=== PATIENT | male | born 1965 | race Caucasian/White ===

== ENCOUNTER 2018-01-12 19:17 | Emergency (ER) | payer MEDICARE ==
--- NOTE | 2018-01-12 19:40 | EDM.PDOC ---
ED HPI GENERAL MEDICAL PROBLEM - General Chief Complaint: Skin Complaint Stated Complaint: dog bite to abdomen Time Seen by Provider: 01/12/18 19:33 Source of Information: Reports: Patient, RN, RN Notes Reviewed History Limitations: Reports: No Limitations - History of Present Illness INITIAL COMMENTS - FREE TEXT/NARRATIVE: Patient presents to the ED at [facility] after he was biten by a small dog that is known to him. Patient states the dog bite was not provoked. Patient thinks the dog is up to date with immunizations. Patient states his tetanus immunization is up to date. Patient smells of ETOH. Onset: Today, Sudden Onset Date: 01/12/18 Abdomen Pain Score (Numeric/FACES): 5 - Related Data Allergies Allergy/AdvReac Type Severity Reaction Status Date / Time Penicillins Allergy Diarrhea Verified 01/12/18 19:25 Home Meds: Home Meds LORazepam [Ativan] 0.5 mg PO ASDIRECTED PRN 03/30/13 [History] Sulfamethoxazole/Trimethoprim [Bactrim Ds Tablet] 1 each PO BID 10 Days #20 tablet 01/12/18 [Rx] Zolpidem Tartrate 1 tab PO DAILY 01/12/18 [History] Past Medical History Psychiatric History: Reports: Addiction Social & Family History - Tobacco Use Smoking Status *Q: Unknown Ever Smoked ED ROS GENERAL - Review of Systems Review Of Systems: See Below Constitutional: Denies: Fever, Chills Respiratory: Denies: Shortness of Breath, Cough Cardiovascular: Denies: Chest Pain, Palpitations GI/Abdominal: Denies: Abdominal Pain, Nausea, Vomiting Skin: Reports: Wound (central abdomen) Neurological: Reports: No Symptoms ED EXAM, SKIN/RASH Exam: See Below Exam Limited By: Intoxication General Appearance: Alert, No Apparent Distress Respiratory/Chest: No Respiratory Distress, Lungs Clear, Normal Breath Sounds Cardiovascular: Normal Peripheral Pulses, Regular Rate, Rhythm GI/Abdominal: Normal Bowel Sounds, Soft, Non-Tender Neurological: Alert, Oriented Skin: Warm, Dry, Normal Color, Wound/Incision (2cm vertical laceration to the central abdomen; low grade venous ooze; no FB; would appears clean) Location, Skin: Abdomen ED SKIN PROCEDURES - Laceration/Wound Repair Middle Midline Abdomen Lac/Wound length In cm: 2 Appearance: Subcutaneous, Linear Distal NVT: Neuro & Vascular Intact Anesthetic Type: Other (None) Skin Prep: Chlorhexidine (Hibiciens), Isopropyl Alcohol (Alcohol) Exploration/Debridement/Repair: Wound Explored, In a Bloodless Field, Explored to Base, No Foreign Material Found Closed with: Dermabond Sterile Dressing Applied: Provider Tetanus Status Addressed: Yes Complications: No Course - Vital Signs Last Recorded V/S: Last Vital Signs Temp 36.3 C 01/12/18 19:34 Pulse 85 01/12/18 19:34 Resp 18 01/12/18 19:34 BP 120/86 01/12/18 19:34 Pulse Ox 95 01/12/18 19:34 - Orders/Labs/Meds Orders: Active Orders 24 hr Category Date Time Status BASIC METABOLIC PANEL,BMP [CHEM] Stat Lab 01/12/18 19:55 Received Blood Alcohol [ETHANOL BLOOD MEDICAL] [CHEM] Stat Lab 01/12/18 19:55 Received CBC WITH AUTO DIFF [HEME] Stat Lab 01/12/18 19:55 Received Departure - Departure Time of Disposition: 20:10 Disposition: Home, Self-Care 01 Condition: Good Clinical Impression: Dog bite Qualifiers: Encounter type: initial encounter Qualified Code(s): W54.0XXA - Bitten by dog, initial encounter - Discharge Information *PRESCRIPTION DRUG MONITORING PROGRAM REVIEWED*: Not Applicable *COPY OF PRESCRIPTION DRUG MONITORING REPORT IN PATIENT SADIE: Not Applicable Prescriptions: Sulfamethoxazole/Trimethoprim [Bactrim Ds Tablet] 1 each PO BID 10 Days #20 tablet Instructions: Animal Bite Referrals: PCP,None [Primary Care Provider] - Forms: ED Department Discharge Additional Instructions: 1. Stay well hydrated and rest 2. Do not pick at the glue, it needs to stay in place to help heal wound 3. Take antibiotics for the full coarse, even if you are feeling better 4. See your Primary as symptoms warrant - Problem List Review Problem List Initiated/Reviewed/Updated: Yes - My Orders Last 24 Hours: My Active Orders 01/12/18 19:55 BASIC METABOLIC PANEL,BMP [CHEM] Stat Blood Alcohol [ETHANOL BLOOD MEDICAL] [CHEM] Stat CBC WITH AUTO DIFF [HEME] Stat - Assessment/Plan Last 24 Hours: My Active Orders 01/12/18 19:55 BASIC METABOLIC PANEL,BMP [CHEM] Stat Blood Alcohol [ETHANOL BLOOD MEDICAL] [CHEM] Stat CBC WITH AUTO DIFF [HEME] Stat Assessment:: Dog bite to abdomen Plan: Wound closed with Dermabond; wound edges approximated nicely. Patient will need to start on abx therapy per CDC guidelines. No follow up necessary until wound becomes infected.
[2018-01-12] MEDS ORDERED: Diphtheria,Pertussis(Acell),Tetanus Vaccine 0.5 ML Syringe IM ONE (20:16)
[2018-01-12 20:26] LABS: CHLORIDE,CL 107 mmol/L (98-107); SODIUM,NA 143 mmol/L (136-145)
[2018-01-12 20:27] LABS: ANION GAP 14.8 mmol/L (10-20)
== END 2018-01-12 20:26 | disposition home or self-care (01) ==
LOC: VM.ED 19:17
DX: S31.159A Open bite of abdominal wall, unspecified quadrant without penetration into peritoneal cavity, initial encounter (principal); W54.0XXA Bitten by dog, initial encounter; Z88.0 Allergy status to penicillin; Z79.899 Other long term (current) drug therapy; Z23 Encounter for immunization
CPT/HCPCS: 12001; 36415; 80048; 85025; 90471; 90715; 99283; 99283-GF-25; G0480

== ENCOUNTER 2018-10-03 00:10 | Emergency (ER) | payer MEDICARE ==
[2018-10-03 00:13] VITALS: BP 124/87
[2018-10-03] MEDS: Take Home: Naproxen 500 MG Tab, 4 Tab Pack PO ONE (00:25)
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
== END 2018-10-03 00:26 | disposition home or self-care (01) ==
LOC: VM.ED 00:10
DX: S29.011A Strain of muscle and tendon of front wall of thorax, initial encounter (principal); Z79.899 Other long term (current) drug therapy; Z88.0 Allergy status to penicillin; Y93.12 Activity, springboard and platform diving
CPT/HCPCS: 99283; 99283-GF; A9270-GY

== ENCOUNTER 2018-10-18 11:42 | Observation (INO) | payer MEDICARE ==
[2018-10-18 12:44] LABS: BARBITURATE SCREEN,URINE NEGATIVE (NEGATIVE); BENZODIAZEPINES SCREEN,URINE POSITIVE (NEGATIVE); EDDP,URINE SCREEN NEGATIVE (NEGATIVE); METHAMPHETAMINE SCREEN, URINE NEGATIVE (NEGATIVE); TCA SCREEN,URINE NEGATIVE (NEGATIVE); THC SCREEN,URINE 50 NG/ML POSITIVE (NEGATIVE)
[2018-10-18] MEDS ORDERED: LORazepam 2 MG/ML SDV IVPUSH ONE (13:07)
--- NOTE | 2018-10-18 13:07 | EDM.PDOC ---
ED HPI GENERAL MEDICAL PROBLEM - General Chief Complaint: Drug or Alcohol Abuse Stated Complaint: DETOX Time Seen by Provider: 10/18/18 12:00 Source of Information: Reports: Patient History Limitations: Reports: No Limitations - History of Present Illness INITIAL COMMENTS - FREE TEXT/NARRATIVE: Pt. presents to ER requesting detox. Pt. states that he drinks approx. 25 drinks per day, between beer and hard alcohol. Pt. has been drinking today. He states that he was sober for several months but has drinking heavily daily since February. In addition to alcohol, he smokes marijuana heavily as well. He initially stated that he "didn't use the hard stuff" but later admitted that he may have used meth this past weekend. Pt. denies any other complaints. No chest pain or shortness of breath. No blood in his vomit or stool. He states that he attempted to stop drinking cold turkey twice recently but he was unable to maintain sobriety due to vomiting and DTs. Onset: Today Onset Date: 10/18/18 Onset Time: 13:14 Severity: Moderate - Related Data Allergies Allergy/AdvReac Type Severity Reaction Status Date / Time Penicillins Allergy Diarrhea Verified 10/18/18 12:09 Home Meds: Home Meds LORazepam [Ativan] 1 mg PO BID 03/30/13 [History] Zolpidem Tartrate 1 tab PO DAILY 01/12/18 [History] Gabapentin [Neurontin] 100 mg PO BID 10/03/18 [History] Past Medical History Psychiatric History: Reports: Addiction, Schizophrenia Social & Family History - Tobacco Use Smoking Status *Q: Current Every Day Smoker Years of Tobacco use: 1 Packs/Tins Daily: 30 - Alcohol Use Days Per Week of Alcohol Use: 7 Number of Drinks Per Day: 30 Total Drinks Per Week: 210 Date of Last Drink: 10/18/18 - Recreational Drug Use Recreational Drug Use: Yes Drug Use in Last 12 Months: Yes Recreational Drug Type: Reports: Marijuana/Hashish Recreational Drug Use Frequency: Daily ED ROS GENERAL - Review of Systems Review Of Systems: See Below Constitutional: Reports: No Symptoms HEENT: Reports: No Symptoms Respiratory: Reports: No Symptoms Cardiovascular: Reports: No Symptoms Endocrine: Reports: No Symptoms GI/Abdominal: Reports: Nausea, Vomiting. Denies: Hematemesis, Hematochezia, Melena : Reports: No Symptoms Musculoskeletal: Reports: No Symptoms Skin: Reports: No Symptoms Neurological: Reports: Dizziness Psychiatric: Reports: Agitation, Anxiety Hematologic/Lymphatic: Reports: No Symptoms Immunologic: Reports: No Symptoms ED EXAM, GENERAL - Physical Exam Exam: See Below Exam Limited By: No Limitations General Appearance: Alert, WD/WN, Anxious Eye Exam: Bilateral Eye: EOMI Throat/Mouth: Normal Inspection, Normal Lips, Normal Teeth, Normal Gums, Normal Oropharynx, Normal Voice, No Airway Compromise Head: Atraumatic, Normocephalic Neck: Normal Inspection, Supple, Non-Tender, Full Range of Motion Respiratory/Chest: No Respiratory Distress, Lungs Clear, Normal Breath Sounds, No Accessory Muscle Use, Chest Non-Tender Cardiovascular: Normal Peripheral Pulses, Regular Rate, Rhythm, No Edema, No Gallop, No JVD, No Murmur, No Rub Peripheral Pulses: 4+: Radial (L) GI/Abdominal: Normal Bowel Sounds, Soft, Non-Tender, No Organomegaly, No Distention, No Mass (Male) Exam: Deferred Rectal (Males) Exam: Deferred Back Exam: Normal Inspection, Full Range of Motion Extremities: Normal Inspection, Normal Range of Motion, Non-Tender, No Pedal Edema, Normal Capillary Refill Neurological: Alert, Oriented, CN II-XII Intact, Normal Cognition, Normal Gait, Normal Reflexes, No Motor/Sensory Deficits Psychiatric: Anxious Skin Exam: Warm, Dry, Intact, Normal Color, No Rash Course - Vital Signs Last Recorded V/S: Last Vital Signs Temp 36.9 C 10/18/18 11:55 Pulse 120 H 10/18/18 11:55 Resp 18 10/18/18 11:55 BP 124/84 10/18/18 11:55 Pulse Ox 95 10/18/18 11:55 - Orders/Labs/Meds Orders: Active Orders 24 hr Category Date Time Status Patient Status [ADT] Routine ADT 10/18/18 13:01 Ordered Blood Alcohol [ETHANOL BLOOD MEDICAL] [CHEM] Stat Lab 10/18/18 12:30 Received COMPREHENSIVE METABOLIC PN,CMP [CHEM] Stat Lab 10/18/18 12:30 Received LACTIC ACID [CHEM] Stat Lab 10/18/18 12:30 Received MAGNESIUM [CHEM] Stat Lab 10/18/18 12:30 Received PHOSPHORUS [CHEM] Stat Lab 10/18/18 12:30 Received TSH ULTRASENSITIVE [CHEM] Stat Lab 10/18/18 12:30 Received Sodium Chloride 0.9% [Saline Flush] Med 10/18/18 12:17 Active 10 ml FLUSH ASDIRECTED PRN Peripheral IV Insertion Adult [OM.PC] Routine Oth 10/18/18 12:19 Ordered Medication Orders Sodium Chloride (Saline Flush) 10 ml FLUSH ASDIRECTED PRN PRN Reason: Keep Vein Open Labs: Laboratory Tests 10/18/18 10/18/18 10/18/18 Range/Units 12:20 12:20 12:30 WBC 4.5 (4.0-10.0) x10^3/uL RBC 4.38 L (4.5-6.0) x10^6/uL Hgb 14.7 (14.0-18.0) g/dL Hct 41.1 (40.0-52.0) % MCV 93.8 H (78.0-93.0) fL MCH 33.6 H (26.0-32.0) pg MCHC 35.8 (32.0-36.0) g/dL RDW Coeff of Hayde 13.6 (10.0-15.0) % Plt Count 90 L (130-400) x10^3/uL Neut % (Auto) 61.9 (50.0-80.0) % Lymph % (Auto) 24.5 L (25.0-50.0) % Grant % (Auto) 12.8 H (2.0-11.0) % Eos % (Auto) 0.4 (0.0-4.0) % Baso % (Auto) 0.4 (0.2-1.2) % PT (10.0-12.8) SEC INR (2.0-3.5) Urine Color Yellow (YELLOW) Urine Appearance Clear (CLEAR) Urine pH 5.5 (5.0-8.0) Ur Specific [place] 1.010 Urine Protein 100 H (NEGATIVE) mg/dL Urine Glucose (UA) Negative (NEGATIVE) mg/dL Urine Ketones Negative (NEGATIVE) mg/dL Urine Occult Blood Small H (NEGATIVE) Urine Nitrite Negative (NEGATIVE) Urine Bilirubin Negative (NEGATIVE) Urine Urobilinogen 0.2 (0.2) EU/dL Ur Leukocyte Esterase Negative (NEGATIVE) Urine RBC 0-5 (NOT SEEN) /HPF Urine WBC 0-5 (NOT SEEN) /HPF Ur Squamous Epith Cells Rare (NEGATIVE) /HPF Urine Bacteria Not seen (NEGATIVE) /HPF Urine Mucus Rare H (NEGATIVE) /LPF Urine Opiates Screen Negative (NEAGTIVE) Ur Buprenorphine Scrn Negative (NEGATIVE) Ur Oxycodone Screen Negative (NEGATIVE) Ur EDDP (Meth Metab) Negative (NEGATIVE) Urine Methadone Screen Negative (NEGATIVE) Ur Barbiturates Screen Negative (NEGATIVE) Ur Tricyclics Screen Negative (NEGATIVE) Ur Phencyclidine Scrn Negative (NEGATIVE) Ur Amphetamine Screen Negative (NEGATIVE) U Methamphetamines Scrn Negative (NEGATIVE) Urine MDMA Screen Negative (NEGATIVE) U Benzodiazepines Scrn Positive H (NEGATIVE) U Cocaine Metab Screen Negative (NEGATIVE) U Marijuana (THC) Screen Positive H (NEGATIVE) 10/18/18 Range/Units 12:30 WBC (4.0-10.0) x10^3/uL RBC (4.5-6.0) x10^6/uL Hgb (14.0-18.0) g/dL Hct (40.0-52.0) % MCV (78.0-93.0) fL MCH (26.0-32.0) pg MCHC (32.0-36.0) g/dL RDW Coeff of Hayde (10.0-15.0) % Plt Count (130-400) x10^3/uL Neut % (Auto) (50.0-80.0) % Lymph % (Auto) (25.0-50.0) % Grant % (Auto) (2.0-11.0) % Eos % (Auto) (0.0-4.0) % Baso % (Auto) (0.2-1.2) % PT 9.1 L (10.0-12.8) SEC INR 0.8 L (2.0-3.5) Urine Color (YELLOW) Urine Appearance (CLEAR) Urine pH (5.0-8.0) Ur Specific [place] Urine Protein (NEGATIVE) mg/dL Urine Glucose (UA) (NEGATIVE) mg/dL Urine Ketones (NEGATIVE) mg/dL Urine Occult Blood (NEGATIVE) Urine Nitrite (NEGATIVE) Urine Bilirubin (NEGATIVE) Urine Urobilinogen (0.2) EU/dL Ur Leukocyte Esterase (NEGATIVE) Urine RBC (NOT SEEN) /HPF Urine WBC (NOT SEEN) /HPF Ur Squamous Epith Cells (NEGATIVE) /HPF Urine Bacteria (NEGATIVE) /HPF Urine Mucus (NEGATIVE) /LPF Urine Opiates Screen (NEAGTIVE) Ur Buprenorphine Scrn (NEGATIVE) Ur Oxycodone Screen (NEGATIVE) Ur EDDP (Meth Metab) (NEGATIVE) Urine Methadone Screen (NEGATIVE) Ur Barbiturates Screen (NEGATIVE) Ur Tricyclics Screen (NEGATIVE) Ur Phencyclidine Scrn (NEGATIVE) Ur Amphetamine Screen (NEGATIVE) U Methamphetamines Scrn (NEGATIVE) Urine MDMA Screen (NEGATIVE) U Benzodiazepines Scrn (NEGATIVE) U Cocaine Metab Screen (NEGATIVE) U Marijuana (THC) Screen (NEGATIVE) Meds: Medications Generic Name Dose Route Start Last Admin Trade Name Freq PRN Reason Stop Dose Admin Sodium Chloride 10 ml 10/18/18 12:17 Saline Flush FLUSH ASDIRECTED PRN Keep Vein Open Discontinued Medications Generic Name Dose Route Start Last Admin Trade Name Freq PRN Reason Stop Dose Admin Lorazepam 1 mg 10/18/18 13:07 Ativan IVPUSH 10/18/18 13:08 STAT ONE Departure - Departure Time of Disposition: 13:19 Disposition: Refer to Observation Condition: Good Clinical Impression: Alcohol abuse, Alcohol withdrawal syndrome, Drug abuse, Drug dependence - Discharge Information Referrals: PCP,Not In Area [Primary Care Provider] - Forms: ED Department Discharge - My Orders Last 24 Hours: My Active Orders 10/18/18 12:17 Sodium Chloride 0.9% [Saline Flush] 10 ml FLUSH ASDIRECTED PRN 10/18/18 12:19 Peripheral IV Insertion Adult [OM.PC] Routine 10/18/18 12:30 Blood Alcohol [ETHANOL BLOOD MEDICAL] [CHEM] Stat COMPREHENSIVE METABOLIC PN,CMP [CHEM] Stat LACTIC ACID [CHEM] Stat MAGNESIUM [CHEM] Stat PHOSPHORUS [CHEM] Stat TSH ULTRASENSITIVE [CHEM] Stat 10/18/18 13:01 Patient Status [ADT] Routine - Assessment/Plan Admission H&P: Please use this note as an admission H&P Last 24 Hours: My Active Orders 10/18/18 12:17 Sodium Chloride 0.9% [Saline Flush] 10 ml FLUSH ASDIRECTED PRN 10/18/18 12:19 Peripheral IV Insertion Adult [OM.PC] Routine 10/18/18 12:30 Blood Alcohol [ETHANOL BLOOD MEDICAL] [CHEM] Stat COMPREHENSIVE METABOLIC PN,CMP [CHEM] Stat LACTIC ACID [CHEM] Stat MAGNESIUM [CHEM] Stat PHOSPHORUS [CHEM] Stat TSH ULTRASENSITIVE [CHEM] Stat 10/18/18 13:01 Patient Status [ADT] Routine Plan: Pt. will be admitted observation at this point. He states that he does not want to arrange any inpatient or outpatient treatment program and states that he will likely leave tomorrow. Will institute the alcohol detox protocol. Will treat DTs and agitation with ativan. Protonix IV for stress ulcer prophylaxis. He will need a nicotine patch. Nausea and vomiting will be treated with zofran and compazine. Pt. is a code 1.
[2018-10-18 13:08] LABS: CHLORIDE,CL 101 mmol/L (98-107); SODIUM,NA 140 mmol/L (136-145)
[2018-10-18 13:09] LABS: ANION GAP 18.6 mmol/L (10-20)
[2018-10-18] MEDS ORDERED: cloNIDine 0.1 MG Tab PO PRN (13:24)
[2018-10-18] MEDS ORDERED: Magnesium Oxide 400 MG Tab PO ONE (13:24)
[2018-10-18] MEDS ORDERED: Metoprolol Tartrate 25 MG Tab PO PRN (13:24)
[2018-10-18] MEDS: Nicotine 21 MG/24 Hr Patch TRDERM SCH (14:28)
[2018-10-18] MEDS: LORazepam 1 MG Tab PO PRN ×3 (15:43→19:31)
[2018-10-18] MEDS: Pantoprazole 40 MG Vial IV SCH (15:47)
[2018-10-18] MEDS: Lactated Ringers 1,000 ML IV SCH ×2 (17:52→21:37)
[2018-10-18] MEDS: Haloperidol Lactate 5 MG/ML SDV IM PRN ×2 (17:52→21:34)
[2018-10-18] MEDS: Folic Acid 1 MG Tab PO SCH (17:53)
[2018-10-18] MEDS: Multivitamins with Iron/Calcium/Folic Acid/Minerals Tab PO SCH (17:54)
[2018-10-18] MEDS: Thiamine 100 MG Tab PO SCH (17:54)
[2018-10-18] MEDS: Gabapentin 100 MG Cap PO SCH (19:20)
[2018-10-18] MEDS: Ondansetron 4 MG/2 ML SDV IVPUSH PRN (19:26)
[2018-10-19] MEDS: LORazepam 1 MG Tab PO PRN ×5 (01:40→22:12)
[2018-10-19] MEDS: Lactated Ringers 1,000 ML IV SCH (05:12)
[2018-10-19] MEDS: Thiamine 100 MG Tab PO SCH (08:42)
[2018-10-19] MEDS: Gabapentin 100 MG Cap PO SCH ×2 (08:42→20:02)
[2018-10-19] MEDS: Folic Acid 1 MG Tab PO SCH (08:42)
[2018-10-19] MEDS: Multivitamins with Iron/Calcium/Folic Acid/Minerals Tab PO SCH (08:42)
[2018-10-19] MEDS: chlordiazePOXIDE 25 MG Cap PO PRN ×2 (08:52→16:56)
--- NOTE | 2018-10-19 08:56 | PCM.PN ---
- General Info Date of Service: 10/19/18 Admission Dx/Problem (Free Text): Admitted for alcohol withdrawal and symptoms Functional Status: Reports: Tolerating Diet, Ambulating, Urinating. Denies: New Symptoms - Review of Systems General: Reports: No Symptoms HEENT: Reports: No Symptoms Pulmonary: Reports: No Symptoms Cardiovascular: Reports: No Symptoms Gastrointestinal: Reports: Nausea Genitourinary: Reports: No Symptoms Musculoskeletal: Reports: No Symptoms Skin: Reports: No Symptoms Neurological: Reports: No Symptoms Psychiatric: Reports: Hallucinations (reports visual and auditory; also states this is normal even when not detoxing) - Patient Data Vitals - Most Recent: Last Vital Signs Temp 37.2 C 10/19/18 05:38 Pulse 79 10/19/18 05:38 Resp 16 10/19/18 05:38 BP 133/85 10/19/18 05:38 Pulse Ox 95 10/19/18 05:38 Weight - Most Recent: 63.503 kg I&O - Last 24 Hours: Intake & Output 10/18/18 10/19/18 10/19/18 22:59 06:59 14:59 Intake Total 852 2500 120 Balance 852 2500 120 Lab Results Last 24 Hours: Laboratory Results - last 24 hr 10/18/18 10/18/18 10/18/18 Range/Units 12:20 12:20 12:30 WBC 4.5 (4.0-10.0) x10^3/uL RBC 4.38 L (4.5-6.0) x10^6/uL Hgb 14.7 (14.0-18.0) g/dL Hct 41.1 (40.0-52.0) % MCV 93.8 H (78.0-93.0) fL MCH 33.6 H (26.0-32.0) pg MCHC 35.8 (32.0-36.0) g/dL RDW Coeff of Hayde 13.6 (10.0-15.0) % Plt Count 90 L (130-400) x10^3/uL Neut % (Auto) 61.9 (50.0-80.0) % Lymph % (Auto) 24.5 L (25.0-50.0) % [place] % (Auto) 12.8 H (2.0-11.0) % Eos % (Auto) 0.4 (0.0-4.0) % Baso % (Auto) 0.4 (0.2-1.2) % PT (10.0-12.8) SEC INR (2.0-3.5) Sodium (136-145) mmol/L Potassium (3.5-5.1) mmol/L Chloride (98-107) mmol/L Carbon Dioxide (21-32) mmol/L Anion Gap (10-20) mmol/L BUN (7-18) mg/dL Creatinine (0.70-1.30) mg/dL Est Cr Clr Drug Dosing mL/min Estimated GFR (MDRD) Glucose (74-106) mg/dL Lactic Acid (0.4-2.0) mmol/L Calcium (8.5-10.1) mg/dL Corrected Calcium (8.5-10.1) mg/dL Phosphorus (2.6-4.7) mg/dL Magnesium (1.8-2.4) mg/dL Total Bilirubin (0.2-1.0) mg/dL AST (15-37) U/L ALT (16-63) U/L Alkaline Phosphatase (46-116) U/L Total Protein (6.4-8.2) g/dL Albumin (3.4-5.0) g/dL Globulin Albumin/Globulin Ratio TSH, Ultra Sensitive (0.358-3.74) uIU/mL Urine Color Yellow (YELLOW) Urine Appearance Clear (CLEAR) Urine pH 5.5 (5.0-8.0) Ur Specific [place] 1.010 Urine Protein 100 H (NEGATIVE) mg/dL Urine Glucose (UA) Negative (NEGATIVE) mg/dL Urine Ketones Negative (NEGATIVE) mg/dL Urine Occult Blood Small H (NEGATIVE) Urine Nitrite Negative (NEGATIVE) Urine Bilirubin Negative (NEGATIVE) Urine Urobilinogen 0.2 (0.2) EU/dL Ur Leukocyte Esterase Negative (NEGATIVE) Urine RBC 0-5 (NOT SEEN) /HPF Urine WBC 0-5 (NOT SEEN) /HPF Ur Squamous Epith Cells Rare (NEGATIVE) /HPF Urine Bacteria Not seen (NEGATIVE) /HPF Urine Mucus Rare H (NEGATIVE) /LPF Urine Opiates Screen Negative (NEAGTIVE) Ur Buprenorphine Scrn Negative (NEGATIVE) Ur Oxycodone Screen Negative (NEGATIVE) Ur EDDP (Meth Metab) Negative (NEGATIVE) Urine Methadone Screen Negative (NEGATIVE) Ur Barbiturates Screen Negative (NEGATIVE) Ur Tricyclics Screen Negative (NEGATIVE) Ur Phencyclidine Scrn Negative (NEGATIVE) Ur Amphetamine Screen Negative (NEGATIVE) U Methamphetamines Scrn Negative (NEGATIVE) Urine MDMA Screen Negative (NEGATIVE) U Benzodiazepines Scrn Positive H (NEGATIVE) U Cocaine Metab Screen Negative (NEGATIVE) U Marijuana (THC) Screen Positive H (NEGATIVE) Ethyl Alcohol (0-3) mg/dL 10/18/18 10/18/18 10/18/18 Range/Units 12:30 12:30 12:30 WBC (4.0-10.0) x10^3/uL RBC (4.5-6.0) x10^6/uL Hgb (14.0-18.0) g/dL Hct (40.0-52.0) % MCV (78.0-93.0) fL MCH (26.0-32.0) pg MCHC (32.0-36.0) g/dL RDW Coeff of Hayde (10.0-15.0) % Plt Count (130-400) x10^3/uL Neut % (Auto) (50.0-80.0) % Lymph % (Auto) (25.0-50.0) % [place] % (Auto) (2.0-11.0) % Eos % (Auto) (0.0-4.0) % Baso % (Auto) (0.2-1.2) % PT 9.1 L (10.0-12.8) SEC INR 0.8 L (2.0-3.5) Sodium 140 (136-145) mmol/L Potassium 3.6 (3.5-5.1) mmol/L Chloride 101 (98-107) mmol/L Carbon Dioxide 24 (21-32) mmol/L Anion Gap 18.6 (10-20) mmol/L BUN 7 (7-18) mg/dL Creatinine 0.6 L (0.70-1.30) mg/dL Est Cr Clr Drug Dosing 121.01 mL/min Estimated GFR (MDRD) > 60 Glucose 148 H (74-106) mg/dL Lactic Acid 2.7 H* (0.4-2.0) mmol/L Calcium 9.2 (8.5-10.1) mg/dL Corrected Calcium 9.52 (8.5-10.1) mg/dL Phosphorus 3.7 (2.6-4.7) mg/dL Magnesium 1.7 L (1.8-2.4) mg/dL Total Bilirubin 0.4 (0.2-1.0) mg/dL AST 278 H (15-37) U/L ALT 199 H (16-63) U/L Alkaline Phosphatase 110 (46-116) U/L Total Protein 7.9 (6.4-8.2) g/dL Albumin 3.6 (3.4-5.0) g/dL Globulin 4.3 Albumin/Globulin Ratio 0.84 TSH, Ultra Sensitive 0.749 (0.358-3.74) uIU/mL Urine Color (YELLOW) Urine Appearance (CLEAR) Urine pH (5.0-8.0) Ur Specific [place] Urine Protein (NEGATIVE) mg/dL Urine Glucose (UA) (NEGATIVE) mg/dL Urine Ketones (NEGATIVE) mg/dL Urine Occult Blood (NEGATIVE) Urine Nitrite (NEGATIVE) Urine Bilirubin (NEGATIVE) Urine Urobilinogen (0.2) EU/dL Ur Leukocyte Esterase (NEGATIVE) Urine RBC (NOT SEEN) /HPF Urine WBC (NOT SEEN) /HPF Ur Squamous Epith Cells (NEGATIVE) /HPF Urine Bacteria (NEGATIVE) /HPF Urine Mucus (NEGATIVE) /LPF Urine Opiates Screen (NEAGTIVE) Ur Buprenorphine Scrn (NEGATIVE) Ur Oxycodone Screen (NEGATIVE) Ur EDDP (Meth Metab) (NEGATIVE) Urine Methadone Screen (NEGATIVE) Ur Barbiturates Screen (NEGATIVE) Ur Tricyclics Screen (NEGATIVE) Ur Phencyclidine Scrn (NEGATIVE) Ur Amphetamine Screen (NEGATIVE) U Methamphetamines Scrn (NEGATIVE) Urine MDMA Screen (NEGATIVE) U Benzodiazepines Scrn (NEGATIVE) U Cocaine Metab Screen (NEGATIVE) U Marijuana (THC) Screen (NEGATIVE) Ethyl Alcohol 291 H (0-3) mg/dL Med Orders - Current: Current Medications Chlordiazepoxide HCl (Librium) 25 mg PO TID PRN PRN Reason: Withdrawal Symptoms Clonidine HCl (Catapres) 0.1 mg PO Q4H PRN PRN Reason: Agitation Folic Acid (Folic Acid) 1 mg PO DAILY JEAN Stop: 10/20/18 08:01 Last Admin: 10/19/18 08:42 Dose: 1 mg Gabapentin (Neurontin) 100 mg PO BID REPLACED BY [facility] Last Admin: 10/19/18 08:42 Dose: 100 mg Haloperidol Lactate (Haldol) 2 mg IM Q4H PRN PRN Reason: Agitation Last Admin: 10/18/18 21:34 Dose: 2 mg Lactated Ringer's (Ringers, Lactated) 1,000 mls @ 125 mls/hr IV ASDIRECTED JEAN Last Admin: 10/19/18 05:12 Dose: 125 mls/hr Lorazepam (Ativan) 0 mg PO ASDIRECTED PRN; Protocol PRN Reason: Withdrawal Symptoms Last Admin: 10/19/18 08:41 Dose: 1 mg Metoprolol Tartrate (Lopressor) 25 mg PO Q6H PRN PRN Reason: See Label Comment Multivitamins/Minerals (Thera M Plus) 1 tab PO DAILY REPLACED BY [facility] Last Admin: 10/19/18 08:42 Dose: 1 tab Nicotine (Habitrol) 21 mg TRDERM DAILY@1200 REPLACED BY [facility] Last Admin: 10/18/18 14:28 Dose: Not Given Ondansetron HCl (Zofran) 4 mg IVPUSH Q4H PRN PRN Reason: Nausea Last Admin: 10/18/18 19:26 Dose: 4 mg Pantoprazole Sodium (Protonix Iv) 40 mg IV DAILY@1200 REPLACED BY [facility] Last Admin: 10/18/18 15:47 Dose: 40 mg Sodium Chloride (Saline Flush) 10 ml FLUSH ASDIRECTED PRN PRN Reason: Keep Vein Open Thiamine HCl (Vitamin B-1) 100 mg PO DAILY REPLACED BY [facility] Last Admin: 10/19/18 08:42 Dose: 100 mg Zolpidem Tartrate (Ambien) 10 mg PO BEDTIME REPLACED BY [facility] Discontinued Medications Lorazepam (Ativan) 1 mg IVPUSH STAT ONE Stop: 10/18/18 13:08 Last Admin: 10/18/18 13:13 Dose: 1 mg Magnesium Oxide (Magnesium Oxide) 400 mg PO ONETIME ONE Stop: 10/18/18 13:25 Last Admin: 10/18/18 17:53 Dose: Not Given - Exam General: Alert, Oriented, Cooperative, No Acute Distress HEENT: Pupils Equal, Pupils Reactive, EOMI Neck: Supple Lungs: Clear to Auscultation, Normal Respiratory Effort Cardiovascular: Regular Rate, Regular Rhythm GI/Abdominal Exam: Normal Bowel Sounds, Soft, Non-Tender, No Organomegaly, No Distention, No Abnormal Bruit, No Mass, Pelvis Stable Back Exam: Normal Inspection, Full Range of Motion Extremities: Normal Inspection, Normal Range of Motion, Non-Tender, No Pedal Edema, Normal Capillary Refill Skin: Warm, Dry, Intact Wound/Incisions: Healing Well Neurological: No New Focal Deficit Psy/Mental Status: Alert, Normal Affect, Normal Mood - Problem List & Annotations (1) Alcohol withdrawal syndrome SNOMED Code(s): 311115293 Code(s): F10.239 - ALCOHOL DEPENDENCE WITH WITHDRAWAL, UNSPECIFIED Status: Acute Priority: Medium Current Visit: Yes Qualifiers: Complication of substance-induced condition: uncomplicated Qualified Code(s ): F10.230 - Alcohol dependence with withdrawal, uncomplicated - Problem List Review Problem List Initiated/Reviewed/Updated: Yes - My Orders Last 24 Hours: My Active Orders 10/19/18 08:19 COMPREHENSIVE METABOLIC PN,CMP [CHEM] Routine LACTIC ACID [CHEM] Routine MAGNESIUM [CHEM] Routine 10/19/18 08:20 chlordiazePOXIDE [Librium] 25 mg PO TID PRN - Assessment Assessment:: alcohol withdrawal syndrome - Plan Plan:: Plan Repeat metabolic panel this AM. Add scheduled Librium. Minimal symptoms reported however, last drink was still less than 24 hours ago. Anticipate increased symptomology including hallucinations and confusion, increased nausea , possible incontinence, confusion, aggression, acute psychosis. Will supplement oral vitamins as needed per chemistry report. Keep close to the desk , reevaluate as needed.
[2018-10-19 09:06] LABS: CHLORIDE,CL 100 mmol/L (98-107); SODIUM,NA 137 mmol/L (136-145)
[2018-10-19 09:08] LABS: ANION GAP 13.4 mmol/L (10-20)
[2018-10-19] MEDS ORDERED: Magnesium Sulfate/Water 2 GM in Premix Bag 1 BAG IV ONE (11:30)
[2018-10-19] MEDS: Ondansetron 4 MG/2 ML SDV IVPUSH PRN ×2 (11:37→16:55)
[2018-10-19] MEDS: Pantoprazole 40 MG Vial IV SCH (11:37)
[2018-10-19] MEDS: Nicotine 21 MG/24 Hr Patch TRDERM SCH (11:40)
[2018-10-19] MEDS: D5 1/2 NS w/ 40 mEq/L KCl 1,000 ML IV SCH ×2 (13:20→20:46)
[2018-10-19] MEDS: LORazepam 2 MG/ML SDV IV PRN ×2 (18:06→20:05)
[2018-10-19] MEDS ORDERED: Zolpidem 5 MG Tab PO SCH (20:00)
[2018-10-19] MEDS: Sodium Chloride 0.9% 10 ML Syringe FLUSH PRN (20:08)
[2018-10-19] MEDS: Haloperidol Lactate 5 MG/ML SDV IM PRN (22:11)
[2018-10-20] MEDS: Sodium Chloride 0.9% 10 ML Syringe FLUSH PRN ×2 (00:05→02:16)
[2018-10-20] MEDS: LORazepam 2 MG/ML SDV IV PRN ×2 (00:05→02:16)
[2018-10-20] MEDS: chlordiazePOXIDE 25 MG Cap PO PRN (02:16)
[2018-10-20] MEDS: D5 1/2 NS w/ 40 mEq/L KCl 1,000 ML IV SCH (03:57)
[2018-10-20 07:55] LABS: CHLORIDE,CL 104 mmol/L (98-107); SODIUM,NA 138 mmol/L (136-145)
[2018-10-20 07:59] LABS: ANION GAP 13.2 mmol/L (10-20)
[2018-10-20] MEDS: Multivitamins with Iron/Calcium/Folic Acid/Minerals Tab PO SCH (09:17)
[2018-10-20] MEDS: Gabapentin 100 MG Cap PO SCH (09:17)
[2018-10-20] MEDS: Folic Acid 1 MG Tab PO SCH (09:18)
[2018-10-20] MEDS: Thiamine 100 MG Tab PO SCH (09:18)
--- NOTE | 2018-10-21 00:34 | PCM.DCSUM1 ---
Discharge Summary - Hospital Course Free Text/Narrative:: Pt. states that he is feeling much better. He has not been experiencing any nausea or vomiting. No chest pain or shortness of breath. He has not been agitated. His CIWAA score have been in the 4-5 range. Pt. is interested in intensive inpatient alcohol treatment but refuses inpatient placement at this time. He states that he needs to take care of his home and buildings before he goes into treatment. Pt. has been eating and drinking adequately. He has been up ambulating without difficulty. His ex continues to be in the patient's room. She was causing the patient to be agitated yesterday and was asked to leave. Pt. states that she can be present during rounds and discharge this AM. The pt. ex was asking questions about the patient being placed on a court ordered committal today. I stated that the patient did not meet criteria for this as he is not suicidal or homicidal. Also she was informed that I would not be able to share information with her as she is his ex and the patient does not want her involved. Diagnosis: Stroke: No - Discharge Data Discharge Date: 10/20/18 Discharge Disposition: Home, Self-Care 01 Condition: Good - Discharge Diagnosis/Problem(s) (1) Alcohol abuse SNOMED Code(s): 55739437 ICD Code: F10.10 - ALCOHOL ABUSE, UNCOMPLICATED Status: Acute (2) Alcohol withdrawal syndrome SNOMED Code(s): 967384009 ICD Code: F10.239 - ALCOHOL DEPENDENCE WITH WITHDRAWAL, UNSPECIFIED Status : Acute Priority: Medium Qualifiers: Complication of substance-induced condition: uncomplicated Qualified Code(s ): F10.230 - Alcohol dependence with withdrawal, uncomplicated - Discharge Plan Prescriptions/Med Rec: cloNIDine [Catapres] 0.1 mg PO Q4H PRN #30 tablet PRN Reason: Agitation Home Medications: Home Meds LORazepam [Ativan] 1 mg PO BID 03/30/13 [History] Zolpidem Tartrate 10 mg PO DAILY 01/12/18 [History] Gabapentin [Neurontin] 100 mg PO BID 10/03/18 [History] Thiamine [Vitamin B-1] 100 mg PO DAILY tablet 10/20/18 [Rx] cloNIDine [Catapres] 0.1 mg PO Q4H PRN #30 tablet 10/20/18 [Rx] Forms: ED Department Discharge Referrals: PCP,Not In Area [Primary Care Provider] - - Discharge Summary/Plan Comment DC Time >30 min.: Yes Discharge Summary/Plan Comment: Again patient did not wish to engage in inpatient treatment. He was given information and contact info for the [facility] if he is interested in outpatient treatment. He was started on oral thiamine as well as clonidine. He will continue this Ativan as needed. Return to ER if he has agitation, is unable to hold down fluids, or his having hallucinations or suicidal/homicidal thoughts. All questions were answered. - General Info Date of Service: 10/20/18 Functional Status: Reports: Pain Controlled, Tolerating Diet, Ambulating, Urinating - Review of Systems General: Reports: No Symptoms HEENT: Reports: No Symptoms Pulmonary: Reports: No Symptoms Cardiovascular: Reports: No Symptoms Gastrointestinal: Reports: No Symptoms Genitourinary: Reports: No Symptoms Musculoskeletal: Reports: No Symptoms Skin: Reports: No Symptoms Neurological: Reports: No Symptoms Psychiatric: Reports: No Symptoms - Patient Data Vitals - Most Recent: Last Vital Signs Temp 36.1 C 10/20/18 05:50 Pulse 73 10/20/18 05:50 Resp 16 10/20/18 05:50 BP 133/87 10/20/18 05:50 Pulse Ox 96 10/20/18 05:50 Weight - Most Recent: 63.503 kg Lab Results - Last 24 hrs: Laboratory Results - last 24 hr 10/20/18 Range/Units 07:28 Sodium 138 (136-145) mmol/L Potassium 4.2 (3.5-5.1) mmol/L Chloride 104 (98-107) mmol/L Carbon Dioxide 25 (21-32) mmol/L Anion Gap 13.2 (10-20) mmol/L BUN 7 (7-18) mg/dL Creatinine 0.6 L (0.70-1.30) mg/dL Est Cr Clr Drug Dosing 121.01 mL/min Estimated GFR (MDRD) > 60 Glucose 140 H (74-106) mg/dL Calcium 8.6 (8.5-10.1) mg/dL Corrected Calcium 9.40 (8.5-10.1) mg/dL Magnesium 1.7 L (1.8-2.4) mg/dL Total Bilirubin 0.5 (0.2-1.0) mg/dL AST 249 H (15-37) U/L ALT 208 H (16-63) U/L Alkaline Phosphatase 88 (46-116) U/L Total Protein 6.7 (6.4-8.2) g/dL Albumin 3.0 L (3.4-5.0) g/dL Globulin 3.7 Albumin/Globulin Ratio 0.81 Med Orders - Current: Current Medications Discontinued Medications Chlordiazepoxide HCl (Librium) 25 mg PO TID PRN PRN Reason: Withdrawal Symptoms Last Admin: 10/20/18 02:16 Dose: 25 mg Clonidine HCl (Catapres) 0.1 mg PO Q4H PRN PRN Reason: Agitation Folic Acid (Folic Acid) 1 mg PO DAILY JEAN Stop: 10/20/18 08:01 Last Admin: 10/20/18 09:18 Dose: 1 mg Gabapentin (Neurontin) 100 mg PO BID JEAN Last Admin: 10/20/18 09:17 Dose: 100 mg Haloperidol Lactate (Haldol) 2 mg IM Q4H PRN PRN Reason: Agitation Last Admin: 10/19/18 22:11 Dose: 2 mg Lactated Ringer's (Ringers, Lactated) 1,000 mls @ 125 mls/hr IV ASDIRECTED JEAN Last Admin: 10/19/18 05:12 Dose: 125 mls/hr Potassium Chloride/Dextrose/Sod Cl (D5 1/2 Ns W/ 40 Meq/L Kcl) 1,000 mls @ 125 mls/hr IV ASDIRECTED JEAN Last Admin: 10/20/18 03:57 Dose: 125 mls/hr Magnesium Sulfate 2 gm/ Premix 50 mls @ 25 mls/hr IV ONETIME ONE Stop: 10/19/18 13:29 Last Admin: 10/19/18 11:42 Dose: 25 mls/hr Lorazepam (Ativan) 1 mg IVPUSH STAT ONE Stop: 10/18/18 13:08 Last Admin: 10/18/18 13:13 Dose: 1 mg Lorazepam (Ativan) 0 mg PO ASDIRECTED PRN; Protocol PRN Reason: Withdrawal Symptoms Last Admin: 10/19/18 22:12 Dose: 2 mg Lorazepam (Ativan) 0 mg IV ASDIRECTED PRN; Protocol PRN Reason: Withdrawal Symptoms Last Admin: 10/20/18 02:16 Dose: 2 mg Magnesium Oxide (Magnesium Oxide) 400 mg PO ONETIME ONE Stop: 10/18/18 13:25 Last Admin: 10/18/18 17:53 Dose: Not Given Metoprolol Tartrate (Lopressor) 25 mg PO Q6H PRN PRN Reason: See Label Comment Multivitamins/Minerals (Thera M Plus) 1 tab PO DAILY [facility] Last Admin: 10/20/18 09:17 Dose: 1 tab Nicotine (Habitrol) 21 mg TRDERM DAILY@1200 [facility] Last Admin: 10/19/18 11:40 Dose: Not Given Ondansetron HCl (Zofran) 4 mg IVPUSH Q4H PRN PRN Reason: Nausea Last Admin: 10/19/18 16:55 Dose: 4 mg Pantoprazole Sodium (Protonix Iv) 40 mg IV DAILY@1200 [facility] Last Admin: 10/19/18 11:37 Dose: 40 mg Sodium Chloride (Saline Flush) 10 ml FLUSH ASDIRECTED PRN PRN Reason: Keep Vein Open Last Admin: 10/20/18 02:16 Dose: 10 ml Thiamine HCl (Vitamin B-1) 100 mg PO DAILY [facility] Last Admin: 10/20/18 09:18 Dose: 100 mg Zolpidem Tartrate (Ambien) 10 mg PO BEDTIME [facility] Last Admin: 10/19/18 20:02 Dose: 10 mg - Exam General: Reports: Alert, Oriented HEENT: Reports: Pupils Equal, Pupils Reactive, EOMI, Mucous Membr. Moist/[place] Neck: Reports: Supple Lungs: Reports: Clear to Auscultation, Normal Respiratory Effort Cardiovascular: Reports: Regular Rate, Regular Rhythm GI/Abdominal Exam: Normal Bowel Sounds, Soft, Non-Tender, No Organomegaly, No Distention, No Mass (Male) Exam: Deferred Rectal (Males) Exam: Deferred Back Exam: Reports: Normal Inspection, Full Range of Motion Extremities: Normal Inspection, Normal Range of Motion, Non-Tender, No Pedal Edema, Normal Capillary Refill Skin: Reports: Warm, Dry, Intact Neurological: Reports: No New Focal Deficit Psy/Mental Status: Reports: Alert, Normal Affect, Normal Mood. Denies: Depressed, Agitated, Suicidal Ideation, Homicidal Ideation, Hallucinations
== END 2018-10-20 10:45 | disposition home or self-care (01) ==
LOC: VM.ED 11:42 → EEVIPCON 13:01 → VM.MS 13:01
PROVIDERS: ADMIT Physician Assistant; ATTEND Physician Assistant
DX: F10.230 Alcohol dependence with withdrawal, uncomplicated (principal); F17.210 Nicotine dependence, cigarettes, uncomplicated; F20.9 Schizophrenia, unspecified; Z88.0 Allergy status to penicillin; Z79.899 Other long term (current) drug therapy
CPT/HCPCS: 36415; 80053; 80305; 81001; 83605; 83735; 84100; 84443; 85025; 85610; 96374; 99285; A4217; A9270; C9113; G0480; J1630; J2060; J2405; J3475; J3480; J7120; 96361; 96372; 96375; 96376; 99217; 99219; 99225; G0378

== ENCOUNTER 2019-07-17 10:43 | Emergency (ER) | payer MEDICARE, OTHER ==
[2019-07-17] MEDS: Sodium Chloride 0.9% 1,000 ML IV SCH (11:15)
[2019-07-17 11:36] LABS: CHLORIDE,CL 95 mmol/L (98-107); SODIUM,NA 133 mmol/L (136-145)
--- NOTE | 2019-07-17 11:42 | EDM.PDOC ---
ED HPI GENERAL MEDICAL PROBLEM - General Chief Complaint: Respiratory Problem Stated Complaint: cough Time Seen by Provider: 07/17/19 11:15 Source of Information: Reports: Patient History Limitations: Reports: No Limitations - History of Present Illness INITIAL COMMENTS - FREE TEXT/NARRATIVE: Patient presents to ER with complaints of a 20 day history of productive cough, chest congestion. Unaware of any fevers, has not checked. Has felt chills at times. Cough productive of yellow phlegm, relates considerable amounts. Does get short of breath and notes wheezing at times. Is a smoker but denies chronic cough or wheezing from it. He has not travelled out of his home for 2 months. Family does bring him supplies, has been exposed to a few friends. Has chronic sinus congestion and drainage, "possibly from allergies". Denies sore throat. Feels tired. PMH includes anxiety, GERD. Routinely takes Lorazepam. Onset: Gradual Duration: Week(s):, Getting Worse Location: Reports: Chest Quality: Reports: Ache Severity: Mild Associated Symptoms: Reports: Cough, cough w sputum, Fever/Chills, Loss of Appetite, Nausea/Vomiting, Shortness of Breath, Weakness. Denies: Confusion, Chest Pain, Syncope - Related Data Allergies Allergy/AdvReac Type Severity Reaction Status Date / Time Penicillins Allergy Diarrhea Verified 07/17/19 11:25 Home Meds: Home Meds LORazepam [Ativan] 1 mg PO BID 03/30/13 [History] Zolpidem Tartrate 10 mg PO DAILY 01/12/18 [History] Gabapentin [Neurontin] 100 mg PO BID 10/03/18 [History] Thiamine [Vitamin B-1] 100 mg PO DAILY tablet 10/20/18 [Rx] Multivitamin [Multi-Vitamin Daily] 1 each PO DAILY 07/17/19 [History] Past Medical History Gastrointestinal History: Reports: GERD Psychiatric History: Reports: Addiction, Anxiety, Schizophrenia Social & Family History - Tobacco Use Smoking Status *Q: Current Every Day Smoker - Alcohol Use Alcohol Use History: Yes - Recreational Drug Use Recreational Drug Type: Reports: Marijuana/Hashish ED ROS GENERAL - Review of Systems Review Of Systems: See Below Constitutional: Reports: Chills, Malaise, Weakness, Fatigue, Decreased Appetite. Denies: Fever HEENT: Reports: Rhinitis. Denies: Ear Pain, Throat Pain Respiratory: Reports: Shortness of Breath, Cough, Sputum Cardiovascular: Denies: Chest Pain, Edema, Lightheadedness Endocrine: Reports: Fatigue GI/Abdominal: Reports: Abdominal Pain, Black Stool, Nausea, Vomiting : Reports: No Symptoms Musculoskeletal: Reports: No Symptoms Skin: Reports: No Symptoms Neurological: Reports: Weakness ED EXAM, GENERAL - Physical Exam Exam: See Below Exam Limited By: No Limitations General Appearance: Alert, WD/WN, No Apparent Distress Ears: Normal External Exam, Normal TMs Nose: Normal Inspection, Normal Mucosa, No Blood Throat/Mouth: Normal Inspection, Normal Oropharynx Head: Normocephalic Neck: Normal Inspection, Supple, Non-Tender Respiratory/Chest: No Respiratory Distress, Lungs Clear, Normal Breath Sounds Cardiovascular: Regular Rate, Rhythm GI/Abdominal: Normal Bowel Sounds, Soft, Non-Tender Extremities: Normal Inspection, No Pedal Edema Neurological: Alert, Oriented Skin Exam: Warm, Dry Course - Vital Signs Last Recorded V/S: Last Vital Signs Temp 99 F 07/17/19 11:00 Pulse 90 07/17/19 11:40 Resp 18 07/17/19 11:00 BP 141/103 H 07/17/19 11:40 Pulse Ox 96 07/17/19 11:00 - Orders/Labs/Meds Orders: Active Orders 24 hr Category Date Time Status CULTURE BLOOD [BC] Stat Lab 07/17/19 11:00 Ordered CULTURE BLOOD [BC] Stat Lab 07/17/19 11:00 Ordered Sodium Chloride 0.9% @ 125 MLS/HR (1000ml) Med 07/17/19 11:15 Ordered Sodium Chloride 0.9% [Normal Saline] 1,000 ml IV ASDIRECTED Blood Culture x2 Reflex Set [OM.PC] Stat Oth 07/17/19 11:00 Ordered Medication Orders Sodium Chloride (Normal Saline) 1,000 mls @ 125 mls/hr IV ASDIRECTED JEAN Last Admin: 07/17/19 11:15 Dose: 125 mls/hr Labs: Laboratory Tests 07/17/19 07/17/19 07/17/19 Range/Units 11:10 11:10 11:10 WBC 6.7 (4.0-10.0) x10^3/uL RBC 4.60 (4.5-6.0) x10^6/uL Hgb 14.8 (14.0-18.0) g/dL Hct 41.8 (40.0-52.0) % MCV 90.9 (78.0-93.0) fL MCH 32.2 H (26.0-32.0) pg MCHC 35.4 (32.0-36.0) g/dL RDW Coeff of Hayde 12.9 (10.0-15.0) % Plt Count 61 L (130-400) x10^3/uL Neut % (Auto) 69.5 (50.0-80.0) % Lymph % (Auto) 16.2 L (25.0-50.0) % Bertie % (Auto) 14.2 H (2.0-11.0) % Eos % (Auto) 0.0 (0.0-4.0) % Baso % (Auto) 0.1 L (0.2-1.2) % Sodium 133 L (136-145) mmol/L Potassium 3.0 L (3.5-5.1) mmol/L Chloride 95 L (98-107) mmol/L Carbon Dioxide 24 (21-32) mmol/L Anion Gap 17.0 (10-20) mmol/L BUN 5 L (7-18) mg/dL Creatinine 0.6 L (0.70-1.30) mg/dL Est Cr Clr Drug Dosing 119.58 mL/min Estimated GFR (MDRD) > 60 Glucose 118 H (74-106) mg/dL Lactic Acid 1.5 (0.4-2.0) mmol/L Calcium 8.7 (8.5-10.1) mg/dL C-Reactive Protein 2.3 H (<=0.9) mg/dL Meds: Medications Generic Name Dose Route Start Last Admin Trade Name Freq PRN Reason Stop Dose Admin Sodium Chloride 1,000 mls @ 125 mls/hr 07/17/19 11:15 07/17/19 11:15 Normal Saline IV 125 mls/hr ASDIRECTED JEAN Administration Discontinued Medications Generic Name Dose Route Start Last Admin Trade Name Freq PRN Reason Stop Dose Admin Levofloxacin/Dextrose 500 mg/ 100 mls @ 100 mls/hr 07/17/19 12:02 Premix IV 07/17/19 13:01 ONETIME ONE - Re-Assessments/Exams Free Text/Narrative Re-Assessment/Exam: 07/17/19 12:20 Labs noted. WBC is normal. CRP mildly elevated. Chest xray shows right middle lobe pneumonia. Discussed with Dr. Kendall in regards to possible admission. As he is not hypoxic, recommends outpatient treatment. Patient informed. He is comfortable with that plan, advised to return if becomes more short of breath or wheezy. Is advised he needs to see his primary care provider for follow up of this to ensure infiltrate in lung has resolved or further treatment is needed. Departure - Departure Time of Disposition: 12:26 Disposition: Home, Self-Care 01 Condition: Fair Clinical Impression: Pneumonia Qualifiers: Laterality: right Lung location: middle lobe of lung - Discharge Information *PRESCRIPTION DRUG MONITORING PROGRAM REVIEWED*: No *COPY OF PRESCRIPTION DRUG MONITORING REPORT IN PATIENT SADIE: No Instructions: Community-Acquired Pneumonia, Adult Referrals: Naomi Mandujano DO [Primary Care Provider] - Forms: ED Department Discharge Additional Instructions: 1. Rest 2. Push fluids 3. Doxycycline 100 mg twice a day for 10 days 4. Ceftin 500 mg twice a day for 10 days 5. DuoNebs every 4 hours as needed 6. Albuterol Inhaler every 4 hours as needed 7. Must quarantine self for 14 days with no visitors 8. Follow up in 2 weeks with primary care provider. Sepsis Event Note - Evaluation Sepsis Screening Result: Possible Sepsis Risk - Focused Exam Vital Signs: Vital Signs Temp Pulse Resp BP Pulse Ox 07/17/19 11:40 90 141/103 H 07/17/19 11:00 99 F 94 18 155/107 H 96 Date Exam was Performed: 07/17/19 Time Exam was Performed: 12:31 - My Orders Last 24 Hours: My Active Orders 07/17/19 11:00 CULTURE BLOOD [BC] Stat CULTURE BLOOD [BC] Stat Blood Culture x2 Reflex Set [OM.PC] Stat 07/17/19 11:15 Sodium Chloride 0.9% @ 125 MLS/HR (1000ml) Sodium Chloride 0.9% [Normal Saline] 1,000 ml IV ASDIRECTED - Assessment/Plan Last 24 Hours: My Active Orders 07/17/19 11:00 CULTURE BLOOD [BC] Stat CULTURE BLOOD [BC] Stat Blood Culture x2 Reflex Set [OM.PC] Stat 07/17/19 11:15 Sodium Chloride 0.9% @ 125 MLS/HR (1000ml) Sodium Chloride 0.9% [Normal Saline] 1,000 ml IV ASDIRECTED
--- NOTE | 2019-07-17 11:52 | CR ---
[id number] RAD/RAD Chest PA or AP 1V EXAM: RAD Chest PA or AP 1V INDICATION: COUGH. COMPARISON: None. DISCUSSION: Cardiomediastinal silhouette is normal in size and contour. Right middle lobe airspace consolidation. No pneumothorax or pleural effusion. IMPRESSION: Right middle lobe pneumonia. Follow-up imaging after appropriate therapy in 4-6 weeks is recommended to ensure resolution Jimmy Mcgregor DO 07/18/19 1318 Thank you for allowing us to participate in the care of your patient.
[2019-07-17] MEDS ORDERED: Levofloxacin/Dextrose 5%-Water 500 MG in Premix Bag 1 BAG IV ONE (12:02)
== END 2019-07-17 12:55 | disposition home or self-care (01) ==
LOC: VM.ED 10:43
DX: J18.9 Pneumonia, unspecified organism (principal); F41.9 Anxiety disorder, unspecified; F20.9 Schizophrenia, unspecified; F17.200 Nicotine dependence, unspecified, uncomplicated; Z88.0 Allergy status to penicillin; Z79.899 Other long term (current) drug therapy
CPT/HCPCS: 71045; 80048; 83605; 85025; 86140; 87040; 87804; 96360; 96361; 99285; J7030; 99284-GF

== ENCOUNTER 2019-07-30 06:06 | Emergency (ER) | payer MEDICARE, OTHER ==
[2019-07-30 07:44] LABS: BENZODIAZEPINES SCREEN,URINE POSITIVE (NEGATIVE)
--- NOTE | 2019-07-30 07:44 | EDM.PDOC ---
ED HPI GENERAL MEDICAL PROBLEM - General Chief Complaint: Respiratory Problem Stated Complaint: Short of Breath Time Seen by Provider: 07/30/19 07:40 Source of Information: Reports: Patient - History of Present Illness INITIAL COMMENTS - FREE TEXT/NARRATIVE: Ildefonso is a 54 y/o male who was dropped off here at the ER by his ex- for what initially was thought to be a respiratory complaint, but then the patient was not making sense. He was making statements like "I am going to shoot up with B12", "my jayden is too big for everything", "I have the coronie, I have the cornie", " I am waiting for the aliens to take him back home to [facility] because it's nice there", and "I have been quarantined for a month." Patient had made several calls to the ER nurses through the night and was not making sense. He reports taking Lorazepam through the night. It is unclear exactly why he is being seen here when COMMUNITY LIFE DIRECTOR asks him. He was treated for a pneumonia with Ceftin on 07/17/2019 and seen here in the ER. Chest Pain Score (Numeric/FACES): 5 - Related Data Allergies Allergy/AdvReac Type Severity Reaction Status Date / Time Penicillins Allergy Diarrhea Verified 07/30/19 07:05 Home Meds: Home Meds LORazepam [Ativan] 1 mg PO TID 03/30/13 [History] Zolpidem Tartrate 10 mg PO DAILY PRN 01/12/18 [History] Gabapentin [Neurontin] 100 mg PO BID PRN 10/03/18 [History] Thiamine [Vitamin B-1] 100 mg PO DAILY tablet 10/20/18 [Rx] Multivitamin [Multi-Vitamin Daily] 1 each PO DAILY 07/17/19 [History] Past Medical History Gastrointestinal History: Reports: GERD Psychiatric History: Reports: Addiction, Anxiety, Schizophrenia Social & Family History - Tobacco Use Smoking Status *Q: Current Every Day Smoker Years of Tobacco use: 43 Packs/Tins Daily: 1 - Recreational Drug Use Recreational Drug Use: Yes Recreational Drug Type: Reports: Marijuana/Hashish ED ROS GENERAL - Review of Systems Review Of Systems: See Below Constitutional: Reports: No Symptoms HEENT: Reports: No Symptoms Respiratory: Reports: Cough Cardiovascular: Reports: No Symptoms Endocrine: Reports: No Symptoms GI/Abdominal: Reports: No Symptoms : Reports: No Symptoms Musculoskeletal: Reports: No Symptoms Skin: Reports: No Symptoms Neurological: Reports: No Symptoms Psychiatric: Reports: Confusion, Hallucinations Hematologic/Lymphatic: Reports: No Symptoms Immunologic: Reports: No Symptoms ED EXAM, GENERAL - Physical Exam Exam: See Below General Appearance: Alert, WD/WN, No Apparent Distress (Adult male resting quietly on ER cart), Other Ears: Normal Canal, Hearing Grossly Normal Nose: Normal Inspection Throat/Mouth: Normal Inspection, Normal Voice, No Airway Compromise Head: Atraumatic, Normocephalic Neck: Normal Inspection, Supple Respiratory/Chest: No Respiratory Distress, Lungs Clear, Chest Non-Tender, Decreased Breath Sounds (right lower lobe), Other (note dry cough, no signs of trauma over the chest area). No: Accessory Muscle Use, Retractions Cardiovascular: Normal Peripheral Pulses, Regular Rate, Rhythm, No Edema, No Murmur GI/Abdominal: Normal Bowel Sounds, Soft, Non-Tender, No Mass (Male) Exam: Deferred Rectal (Males) Exam: Deferred Back Exam: Normal Inspection Extremities: Normal Inspection, No Pedal Edema, Normal Capillary Refill Neurological: Alert, CN II-XII Intact, Disoriented Psychiatric: Anxious, Other Skin Exam: Warm, Dry, Intact, Normal Color Lymphatic: No Adenopathy Course - Vital Signs Text/Narrative:: The patient was seen by the COMMUNITY LIFE DIRECTOR. Labs and CXR ordered. 0800 Contacted the [facility] Screener and reviewed case with them for admission. Screener interviewing patient 0825 Radiologist called and reported that the CXR noted a large right sided pneumothorax. [facility]erico Osman contacted for transfer, but patient declined since no psych available there onsite. Vitals remain stable at this time. 0830 Dirk Osman contacted and Dr Ayala accepted patient in the ER. Vitals remain stable, Dr Ayala agrees with transferring now and chest tube placement on arrival to [facility] if vitals remain stable. Sats 95% on 2 liters and Pulse=95. [facility] contacted for transport and patient left the ER with them in good condition. Last Recorded V/S: Last Vital Signs Temp 36.9 C 07/30/19 08:32 Pulse 91 07/30/19 08:32 Resp 18 07/30/19 08:32 BP 104/76 07/30/19 08:32 Pulse Ox 95 07/30/19 08:37 - Orders/Labs/Meds Orders: Active Orders 24 hr Category Date Time Status SALICYLATE [REF] Stat Lab 07/30/19 06:48 Received Labs: Laboratory Tests 07/30/19 07/30/19 07/30/19 Range/Units 06:40 06:40 06:48 WBC 8.3 (4.0-10.0) x10^3/uL RBC 4.40 L (4.5-6.0) x10^6/uL Hgb 14.6 (14.0-18.0) g/dL Hct 41.7 (40.0-52.0) % MCV 94.8 H D (78.0-93.0) fL MCH 33.2 H (26.0-32.0) pg MCHC 35.0 (32.0-36.0) g/dL RDW Coeff of Hayde 14.1 (10.0-15.0) % Plt Count 193 D (130-400) x10^3/uL Neut % (Auto) 64.8 (50.0-80.0) % Lymph % (Auto) 19.2 L (25.0-50.0) % [place] % (Auto) 14.6 H (2.0-11.0) % Eos % (Auto) 1.0 (0.0-4.0) % Baso % (Auto) 0.4 (0.2-1.2) % Sodium (136-145) mmol/L Potassium (3.5-5.1) mmol/L Chloride (98-107) mmol/L Carbon Dioxide (21-32) mmol/L Anion Gap (10-20) mmol/L BUN (7-18) mg/dL Creatinine (0.70-1.30) mg/dL Est Cr Clr Drug Dosing mL/min Estimated GFR (MDRD) Glucose (74-106) mg/dL Calcium (8.5-10.1) mg/dL Corrected Calcium (8.5-10.1) mg/dL Total Bilirubin (0.2-1.0) mg/dL AST (15-37) U/L ALT (16-63) U/L Alkaline Phosphatase (46-116) U/L Total Protein (6.4-8.2) g/dL Albumin (3.4-5.0) g/dL Globulin Albumin/Globulin Ratio TSH, Ultra Sensitive (0.358-3.74) uIU/mL Urine Color Yellow (YELLOW) Urine Appearance Clear (CLEAR) Urine pH 5.5 (5.0-8.0) Ur Specific Foley 1.010 Urine Protein Negative (NEGATIVE) mg/dL Urine Glucose (UA) Negative (NEGATIVE) mg/dL Urine Ketones Negative (NEGATIVE) mg/dL Urine Occult Blood Trace-intact H (NEGATIVE) Urine Nitrite Negative (NEGATIVE) Urine Bilirubin Negative (NEGATIVE) Urine Urobilinogen 0.2 (0.2) EU/dL Ur Leukocyte Esterase Negative (NEGATIVE) Urine RBC 0-5 (NOT SEEN) /HPF Urine WBC 0-5 (NOT SEEN) /HPF Ur Squamous Epith Cells Rare (NEGATIVE) /HPF Urine Bacteria Rare (NEGATIVE) /HPF Urine Mucus Rare H (NEGATIVE) /LPF Urine Opiates Screen Negative (NEAGTIVE) Ur Buprenorphine Scrn Negative (NEGATIVE) Ur Oxycodone Screen Negative (NEGATIVE) Ur EDDP (Meth Metab) Negative (NEGATIVE) Urine Methadone Screen Negative (NEGATIVE) Acetaminophen (10-30) ug/ml Ur Barbiturates Screen Negative (NEGATIVE) Ur Tricyclics Screen Negative (NEGATIVE) Ur Phencyclidine Scrn Negative (NEGATIVE) Ur Amphetamine Screen Negative (NEGATIVE) U Methamphetamines Scrn Negative (NEGATIVE) Urine MDMA Screen Negative (NEGATIVE) U Benzodiazepines Scrn Positive H (NEGATIVE) U Cocaine Metab Screen Negative (NEGATIVE) U Marijuana (THC) Screen Positive H (NEGATIVE) Ethyl Alcohol (0-3) mg/dL 07/30/19 Range/Units 06:48 WBC (4.0-10.0) x10^3/uL RBC (4.5-6.0) x10^6/uL Hgb (14.0-18.0) g/dL Hct (40.0-52.0) % MCV (78.0-93.0) fL MCH (26.0-32.0) pg MCHC (32.0-36.0) g/dL RDW Coeff of Hayde (10.0-15.0) % Plt Count (130-400) x10^3/uL Neut % (Auto) (50.0-80.0) % Lymph % (Auto) (25.0-50.0) % [place] % (Auto) (2.0-11.0) % Eos % (Auto) (0.0-4.0) % Baso % (Auto) (0.2-1.2) % Sodium 142 (136-145) mmol/L Potassium 3.9 (3.5-5.1) mmol/L Chloride 104 (98-107) mmol/L Carbon Dioxide 26 (21-32) mmol/L Anion Gap 15.9 (10-20) mmol/L BUN 8 (7-18) mg/dL Creatinine 0.6 L (0.70-1.30) mg/dL Est Cr Clr Drug Dosing 119.58 mL/min Estimated GFR (MDRD) > 60 Glucose 128 H (74-106) mg/dL Calcium 8.9 (8.5-10.1) mg/dL Corrected Calcium 9.70 (8.5-10.1) mg/dL Total Bilirubin 0.3 (0.2-1.0) mg/dL AST 125 H (15-37) U/L ALT 190 H (16-63) U/L Alkaline Phosphatase 110 (46-116) U/L Total Protein 7.5 (6.4-8.2) g/dL Albumin 3.0 L (3.4-5.0) g/dL Globulin 4.5 Albumin/Globulin Ratio 0.67 TSH, Ultra Sensitive 2.658 (0.358-3.74) uIU/mL Urine Color (YELLOW) Urine Appearance (CLEAR) Urine pH (5.0-8.0) Ur Specific Foley Urine Protein (NEGATIVE) mg/dL Urine Glucose (UA) (NEGATIVE) mg/dL Urine Ketones (NEGATIVE) mg/dL Urine Occult Blood (NEGATIVE) Urine Nitrite (NEGATIVE) Urine Bilirubin (NEGATIVE) Urine Urobilinogen (0.2) EU/dL Ur Leukocyte Esterase (NEGATIVE) Urine RBC (NOT SEEN) /HPF Urine WBC (NOT SEEN) /HPF Ur Squamous Epith Cells (NEGATIVE) /HPF Urine Bacteria (NEGATIVE) /HPF Urine Mucus (NEGATIVE) /LPF Urine Opiates Screen (NEAGTIVE) Ur Buprenorphine Scrn (NEGATIVE) Ur Oxycodone Screen (NEGATIVE) Ur EDDP (Meth Metab) (NEGATIVE) Urine Methadone Screen (NEGATIVE) Acetaminophen 0 L (10-30) ug/ml Ur Barbiturates Screen (NEGATIVE) Ur Tricyclics Screen (NEGATIVE) Ur Phencyclidine Scrn (NEGATIVE) Ur Amphetamine Screen (NEGATIVE) U Methamphetamines Scrn (NEGATIVE) Urine MDMA Screen (NEGATIVE) U Benzodiazepines Scrn (NEGATIVE) U Cocaine Metab Screen (NEGATIVE) U Marijuana (THC) Screen (NEGATIVE) Ethyl Alcohol 285 H (0-3) mg/dL - Radiology Interpretation Free Text/Narrative:: CXR=Large right sided tension pneumo Departure - Departure Time of Disposition: 08:40 Disposition: DC/Tfer W/I Hosp To Swing 61 Condition: Good Clinical Impression: Pneumothorax on right, Alcohol abuse, Drug abuse, Schizophrenia Pneumonia Qualifiers: Laterality: right Lung location: middle lobe of lung - Discharge Information *PRESCRIPTION DRUG MONITORING PROGRAM REVIEWED*: Not Applicable *COPY OF PRESCRIPTION DRUG MONITORING REPORT IN PATIENT SADIE: Not Applicable Referrals: PCP,None [Primary Care Provider] - Forms: ED Department Discharge, [facility] Sepsis Event Note - Evaluation Sepsis Screening Result: No Definite Risk - Focused Exam Vital Signs: Vital Signs Temp Pulse Resp BP Pulse Ox 07/30/19 08:37 95 07/30/19 08:32 36.9 C 91 18 104/76 93 L 07/30/19 07:11 36.6 C 106 H 16 109/85 96 Date Exam was Performed: 07/30/19 Time Exam was Performed: 08:59 - My Orders Last 24 Hours: My Active Orders 07/30/19 06:48 SALICYLATE [REF] Stat - Assessment/Plan Last 24 Hours: My Active Orders 07/30/19 06:48 SALICYLATE [REF] Stat
[2019-07-30 07:45] LABS: BARBITURATE SCREEN,URINE NEGATIVE (NEGATIVE); EDDP,URINE SCREEN NEGATIVE (NEGATIVE); METHAMPHETAMINE SCREEN, URINE NEGATIVE (NEGATIVE); TCA SCREEN,URINE NEGATIVE (NEGATIVE); THC SCREEN,URINE 50 NG/ML POSITIVE (NEGATIVE)
[2019-07-30 07:51] LABS: CHLORIDE,CL 104 mmol/L (98-107); SODIUM,NA 142 mmol/L (136-145)
[2019-07-30 07:57] LABS: ANION GAP 15.9 mmol/L (10-20)
[2019-07-30 08:05] LABS: ACETAMINOPHEN 0 ug/ml (10-30)
--- NOTE | 2019-07-30 08:30 | CR ---
[id number] RAD/RAD Chest PA And Lateral EXAM: RAD Chest PA And Lateral CLINICAL DATA: RECENT PNEUMONIA COMPARISON: CORRELATION IS MADE WITH JULY 17, 2019 FINDINGS: There is a large right-sided pneumothorax This is greater than 50% Report was called at the time of the dictation The left lung is clear The cardiac silhouette is slightly shifted to the left IMPRESSION: LARGE RIGHT-SIDED TENSION PNEUMOTHORAX Willian Garcia MD 07/30/19 0828 Thank you for allowing us to participate in the care of your patient.
== END 2019-07-30 09:14 | disposition short-term general hospital (02) ==
LOC: VM.ED 06:06
DX: J93.9 Pneumothorax, unspecified (principal); J18.9 Pneumonia, unspecified organism; F19.10 Other psychoactive substance abuse, uncomplicated; F10.10 Alcohol abuse, uncomplicated; F20.9 Schizophrenia, unspecified; F41.9 Anxiety disorder, unspecified; F17.210 Nicotine dependence, cigarettes, uncomplicated; Z88.0 Allergy status to penicillin; Z79.899 Other long term (current) drug therapy
CPT/HCPCS: 71046; 80053; 80305-QW; 80307; 81001; 84443; 85025; 99284-GF; 99285-25

== ENCOUNTER 2019-08-07 19:54 | Emergency (ER) | payer MEDICARE, OTHER ==
[2019-08-07] MEDS ORDERED: Lactated Ringers 1,000 ML IV ONE (20:15)
[2019-08-07] MEDS ORDERED: diphenhydrAMINE 50 MG/ML SDV IVPUSH ONE (20:15)
[2019-08-07] MEDS ORDERED: Sodium Chloride 0.9% 10 ML Syringe FLUSH PRN (20:15)
[2019-08-07] MEDS ORDERED: Ketorolac 30 MG/ML SDV IVPUSH ONE (20:15)
[2019-08-07] MEDS ORDERED: Polyethylene Glycol 3350 Powder 17 GM Packet PO ONE (20:16)
--- NOTE | 2019-08-07 20:30 | EDM.PDOC ---
ED HPI GENERAL MEDICAL PROBLEM - General Stated Complaint: abd pain Time Seen by Provider: 08/07/19 20:25 Source of Information: Reports: Patient History Limitations: Reports: No Limitations - History of Present Illness INITIAL COMMENTS - FREE TEXT/NARRATIVE: Patient comes emergency department today with complaints of right upper quadrant and generalized abdominal pain. Patient about a week ago was seen at [facility] in [place] for a spontaneous pneumothorax on the right side. He had 2 procedures total to repair the pneumothorax and I would assume that he had a pleurodesis. He was sent home with tramadol and oxycodone. Over the past 3 days he has had some abdominal discomfort that woke him up about 3:00 this morning with severe pain along the right upper quadrant and epigastric region. He was in the hospital for over a week he did not have a bowel movement. He had 1 bowel movement 3 days ago. He felt like he was trying to push a grapefruit through a golf ball yesterday and actually had to digitally disimpact himself. He denies any bloating sensation. He also denies being constipated. He denies any diarrhea. No fever no chills. No cough congestion or shortness of breath. Pneumaturia dysuria or urinary frequency. He has taken some Ex-Lax as well as stool softeners and MiraLAX at home. He is also complaining of heartburn the last few days as well. No pain just a burning in his throat. He is worried that his appendix is the problem. - Related Data Allergies Allergy/AdvReac Type Severity Reaction Status Date / Time Penicillins Allergy Diarrhea Verified 08/07/19 20:41 Home Meds: Home Meds LORazepam [Ativan] 1 mg PO TID 03/30/13 [History] Zolpidem Tartrate 10 mg PO DAILY PRN 01/12/18 [History] Gabapentin [Neurontin] 100 mg PO BID PRN 10/03/18 [History] Thiamine [Vitamin B-1] 100 mg PO DAILY tablet 10/20/18 [Rx] Multivitamin [Multi-Vitamin Daily] 1 each PO DAILY 07/17/19 [History] Past Medical History Gastrointestinal History: Reports: GERD Psychiatric History: Reports: Addiction, Anxiety, Schizophrenia ED ROS GENERAL - Review of Systems Review Of Systems: Comprehensive ROS is negative, except as noted in HPI. ED EXAM, GI/ABD - Physical Exam Exam: See Below Exam Limited By: No Limitations General Appearance: Alert, WD/WN, Mild Distress Eyes: Bilateral: EOMI Ears: Normal External Exam Nose: Normal Inspection Throat/Mouth: Normal Inspection, Normal Lips, Normal Voice Head: Atraumatic, Normocephalic Neck: Normal Inspection, Supple Respiratory/Chest: No Respiratory Distress, Lungs Clear, Normal Breath Sounds, No Accessory Muscle Use, Other (He has a lateral mid axillary surgical incision that is healing well no erythema or induration no subcutaneous emphyzema no drainage. There is also a smal surgical incision on the posterior that is healing well and unremarkable. ) Cardiovascular: Normal Peripheral Pulses, Regular Rate, Rhythm GI/Abdominal Exam: Soft, Tender (Generalized tenderness without guarding or rebound. ), Abnormal Bowel Sounds (Very minimal bowel sounds. ). No: Distended , Guarding, Rigid, Rebound, Hernia (Male) Exam: Deferred Rectal (Males) Exam: Deferred Back Exam: Normal Inspection Extremities: Normal Inspection, Normal Range of Motion, Non-Tender, No Pedal Edema, Normal Capillary Refill Neurological: Alert, Oriented, Normal Cognition, No Motor/Sensory Deficits Psychiatric: Normal Affect, Normal Mood Skin Exam: Warm, Dry, Intact, Normal Color Course - Orders/Labs/Meds Orders: Active Orders 24 hr Category Date Time Status Abdomen 2V AP Flat Upright [CR] Stat Exams 08/07/19 20:15 Taken Chest 2V [CR] Urgent Exams 08/07/19 20:14 Taken Lactated Ringers [Ringers, Lactated] 1,000 ml Med 08/07/19 20:15 Active IV ONETIME Sodium Chloride 0.9% [Saline Flush] Med 08/07/19 20:15 Active 10 ml FLUSH ASDIRECTED PRN Peripheral IV Insertion Adult [OM.PC] Stat Oth 08/07/19 20:14 Ordered Medication Orders Lactated Ringer's (Ringers, Lactated) 1,000 mls @ 999 mls/hr IV ONETIME ONE Stop: 08/07/19 21:15 Sodium Chloride (Saline Flush) 10 ml FLUSH ASDIRECTED PRN PRN Reason: Keep Vein Open Labs: Laboratory Tests 08/07/19 08/07/19 Range/Units 20:26 20:26 WBC 7.5 (4.0-10.0) x10^3/uL RBC 4.11 L (4.5-6.0) x10^6/uL Hgb 13.2 L (14.0-18.0) g/dL Hct 38.7 L (40.0-52.0) % MCV 94.2 H (78.0-93.0) fL MCH 32.1 H (26.0-32.0) pg MCHC 34.1 (32.0-36.0) g/dL RDW Coeff of Hayde 13.2 (10.0-15.0) % Plt Count 221 (130-400) x10^3/uL Neut % (Auto) 60.8 (50.0-80.0) % Lymph % (Auto) 19.9 L (25.0-50.0) % [place] % (Auto) 16.9 H (2.0-11.0) % Eos % (Auto) 2.1 (0.0-4.0) % Baso % (Auto) 0.3 (0.2-1.2) % Sodium 138 (136-145) mmol/L Potassium 3.7 (3.5-5.1) mmol/L Chloride 100 (98-107) mmol/L Carbon Dioxide 23 (21-32) mmol/L Anion Gap 18.7 (10-20) mmol/L BUN 8 (7-18) mg/dL Creatinine 0.6 L (0.70-1.30) mg/dL Est Cr Clr Drug Dosing TNP Estimated GFR (MDRD) > 60 Glucose 116 H (74-106) mg/dL Calcium 9.0 (8.5-10.1) mg/dL Corrected Calcium 9.88 (8.5-10.1) mg/dL Total Bilirubin 0.4 (0.2-1.0) mg/dL AST 79 H (15-37) U/L ALT 93 H (16-63) U/L Alkaline Phosphatase 113 (46-116) U/L Total Protein 7.2 (6.4-8.2) g/dL Albumin 2.9 L (3.4-5.0) g/dL Globulin 4.3 Albumin/Globulin Ratio 0.67 Meds: Medications Generic Name Dose Route Start Last Admin Trade Name Freq PRN Reason Stop Dose Admin Lactated Ringer's 1,000 mls @ 999 mls/hr 08/07/19 20:15 Ringers, Lactated IV 08/07/19 21:15 ONETIME ONE Sodium Chloride 10 ml 08/07/19 20:15 Saline Flush FLUSH ASDIRECTED PRN Keep Vein Open Discontinued Medications Generic Name Dose Route Start Last Admin Trade Name Pebbles PRN Reason Stop Dose Admin Al Hydroxide/Mg Hydroxide 30 ml 08/07/19 20:42 Gi Cocktail PO 08/07/19 20:43 ONETIME ONE Diphenhydramine HCl 25 mg 08/07/19 20:15 Benadryl IVPUSH 08/07/19 20:16 ONETIME ONE Ketorolac Tromethamine 30 mg 08/07/19 20:15 Toradol IVPUSH 08/07/19 20:16 ONETIME ONE Polyethylene Glycol 34 gm 08/07/19 20:16 Miralax PO 08/07/19 20:17 ONETIME ONE Sodium Biphosphate/Sodium Phosphate 133 ml 08/07/19 20:44 Fleet Enema RECTAL 08/07/19 20:45 ONETIME ONE - Radiology Interpretation Free Text/Narrative:: X-ray of the abdomen per radiology shows no acute intra-abdominal process identified nonobstructive bowel gas pattern there is a large colonic fecal load. Chest x-ray per radiology shows previously seen right pneumothorax is resolved surgical marii in the right lung apex. Mild increased density in the right perihilar region may represent atelectasis or pneumonia. - Re-Assessments/Exams Free Text/Narrative Re-Assessment/Exam: 08/07/19 20:42 Labs drawn IV LR 1 liter wide open. Benadryl 25mg IVP Ketorolac 30mg IVP GI Cocktail. 08/07/19 20:56 His liver enzymes are mildly elevated but actually much lower than they have been in the past. No elevated T Damien or alk phos. WBC okay. 08/07/19 21:48 The patient was given oral miralax a double dose and also a fleets enema with good results. WE will send him home with some magnesium citrate. His surgical incision were cleansed and dressed appropriately. Labs results and plan of care discussed with the patient. He was comfortable with this plan and his questions answered. Departure - Departure Time of Disposition: 21:40 Disposition: Home, Self-Care 01 Clinical Impression: Post-op pain Constipation Qualifiers: Constipation type: unspecified constipation type Qualified Code(s): K59.00 - Constipation, unspecified - Discharge Information Instructions: Constipation, Adult, [id number] Referrals: Slick Lovelace MD [Primary Care Provider] - Additional Instructions: Push oral fluids as much as possible over the next few days this is paramount to help with constipation. Miralax 3 capfuls a day until easy smooth bowel movement. Every 2 days if not improving increase by 1 capful. This will only work if you drink lots of fluids. Try to titrate down on your narcotics which is most likely one of the reasons for the constipation. Continue all other medications and therapies as previous. Return to the ED if new or worsening symptoms. Follow up with PCP in the next 4-6 days if not improving sooner if worse. Sepsis Event Note - Focused Exam Date Exam was Performed: 08/07/19 Time Exam was Performed: 20:56 - My Orders Last 24 Hours: My Active Orders 08/07/19 20:14 Chest 2V [CR] Urgent Peripheral IV Insertion Adult [OM.PC] Stat 08/07/19 20:15 Abdomen 2V AP Flat Upright [CR] Stat Lactated Ringers [Ringers, Lactated] 1,000 ml IV ONETIME Sodium Chloride 0.9% [Saline Flush] 10 ml FLUSH ASDIRECTED PRN - Assessment/Plan Last 24 Hours: My Active Orders 08/07/19 20:14 Chest 2V [CR] Urgent Peripheral IV Insertion Adult [OM.PC] Stat 08/07/19 20:15 Abdomen 2V AP Flat Upright [CR] Stat Lactated Ringers [Ringers, Lactated] 1,000 ml IV ONETIME Sodium Chloride 0.9% [Saline Flush] 10 ml FLUSH ASDIRECTED PRN Assessment:: Constipation POst op pain. Plan: Push oral fluids as much as possible over the next few days this is paramount to help with constipation. Miralax 3 capfuls a day until easy smooth bowel movement. Every 2 days if not improving increase by 1 capful. This will only work if you drink lots of fluids. Try to titrate down on your narcotics which is most likely one of the reasons for the constipation. Continue all other medications and therapies as previous. Return to the ED if new or worsening symptoms. Follow up with PCP in the next 4-6 days if not improving sooner if worse.
[2019-08-07] MEDS ORDERED: GI Cocktail Oral Solution 30 ML PO ONE (20:42)
[2019-08-07] MEDS ORDERED: Sodium Phosphate,Monobasic/Sodium Phosphate,Dibasic Enema 133 ML Bottle RECTAL ONE (20:44)
[2019-08-07 20:50] LABS: ANION GAP 18.7 mmol/L (10-20); CHLORIDE,CL 100 mmol/L (98-107); SODIUM,NA 138 mmol/L (136-145)
[2019-08-07] MEDS ORDERED: Magnesium Citrate Solution 296 ML Bottle PO ONE (21:41)
--- NOTE | 2019-08-08 08:22 | CR ---
[id number] RAD/RAD Chest PA And Lateral EXAM: RAD Chest PA And Lateral CLINICAL DATA: CHEST PAIN RECENT PNEUMOTHORAX COMPARISON: CORRELATION IS MADE WITH JULY 30, 2019 FINDINGS: There is no pneumothorax currently The lungs are clear The cardiac silhouette is normal IMPRESSION: NO PNEUMOTHORAX Willian Garcia MD 08/08/19 0821 Thank you for allowing us to participate in the care of your patient.
--- NOTE | 2019-08-08 08:23 | CR ---
[id number] RAD/RAD Abd Flat and Upright 2V Exam: RAD Abd Flat and Upright 2V Clinical Data: ABDOMINAL PAIN COMPARISON: NO PREVIOUS SIMILAR EXAM IS AVAILABLE FINDINGS: There is a moderate degree of fecal matter There is no bowel obstruction There is no organomegaly or pathologic calcification The stomach is distended There is no free air IMPRESSION: MODERATE OBSTIPATION Willian Garcia MD 08/08/19 0822 Thank you for allowing us to participate in the care of your patient.
== END 2019-08-07 22:30 | disposition home or self-care (01) ==
LOC: VM.ED 19:54
DX: K59.00 Constipation, unspecified (principal); G89.18 Other acute postprocedural pain; F41.9 Anxiety disorder, unspecified; F20.9 Schizophrenia, unspecified; Z88.0 Allergy status to penicillin; Z79.899 Other long term (current) drug therapy
CPT/HCPCS: 71046; 74019; 80053; 80307; 85025; 96361; 96374; 96375; 99284; A9270; J1200; J1885; J7120; 36415

== ENCOUNTER 2019-10-21 07:24 | Emergency (ER) | payer MEDICARE ==
--- NOTE | 2019-10-28 13:28 | EDM.PDOC ---
ED HPI GENERAL MEDICAL PROBLEM - General Chief Complaint: General Stated Complaint: Rectal Pain Time Seen by Provider: 10/21/19 07:41 Source of Information: Reports: Patient History Limitations: Reports: No Limitations - History of Present Illness INITIAL COMMENTS - FREE TEXT/NARRATIVE: Pt. presents to ER with complaints of anal pain. He states that he has had this intermittently but it is worse after a BM last night. Denies any fever or chills. Denies any discharge from the area. No fever or chills. He denies any trauma to the area. Pt. states that the discomfort is much worse when having a BM. Denies any abdominal pain. No chest pain or shortness of breath. Denies any rectal bleeding, tarry stools or discharge. Location: Reports: Pelvis Rectal Pain Score (Numeric/FACES): 10 - Related Data Allergies Allergy/AdvReac Type Severity Reaction Status Date / Time Penicillins Allergy Diarrhea Verified 10/21/19 07:37 Home Meds: Home Meds LORazepam [Ativan] 1 mg PO TID 03/30/13 [History] Zolpidem Tartrate 10 mg PO DAILY PRN 01/12/18 [History] Gabapentin [Neurontin] 100 mg PO BID PRN 10/03/18 [History] Thiamine [Vitamin B-1] 100 mg PO DAILY tablet 10/20/18 [Rx] Multivitamin [Multi-Vitamin Daily] 1 each PO DAILY 07/17/19 [History] traMADol [Ultram] 50 mg PO Q6H PRN 08/08/19 [History] Past Medical History Gastrointestinal History: Reports: GERD, Hemorrhoids Psychiatric History: Reports: Addiction, Anxiety, Schizophrenia Social & Family History - Tobacco Use Smoking Status *Q: Never Smoker - Recreational Drug Use Recreational Drug Use: Yes Recreational Drug Type: Reports: Marijuana/Hashish Recreational Drug Use Frequency: Socially ED ROS GENERAL - Review of Systems Review Of Systems: See Below Constitutional: Reports: No Symptoms. Denies: Fever, Chills HEENT: Reports: No Symptoms Respiratory: Reports: No Symptoms Cardiovascular: Reports: No Symptoms Endocrine: Reports: No Symptoms GI/Abdominal: Reports: No Symptoms. Denies: Abdominal Pain, Anorexia, Black Stool, Bloody Stool, Diarrhea, Hematemesis, Hematochezia, Melena, Mucous in Stool, Nausea, Stool Incontinence, Vomiting : Reports: No Symptoms. Denies: Discharge, Dysuria Musculoskeletal: Reports: No Symptoms Skin: Reports: No Symptoms Neurological: Reports: No Symptoms Psychiatric: Reports: No Symptoms Hematologic/Lymphatic: Reports: No Symptoms Immunologic: Reports: No Symptoms ED EXAM, GENERAL - Physical Exam Exam: See Below Exam Limited By: No Limitations General Appearance: Alert, WD/WN, No Apparent Distress Respiratory/Chest: No Respiratory Distress, Lungs Clear, Normal Breath Sounds, No Accessory Muscle Use, Chest Non-Tender Cardiovascular: Normal Peripheral Pulses, Regular Rate, Rhythm, No Edema, No Gallop, No JVD, No Murmur, No Rub GI/Abdominal: Normal Bowel Sounds, Soft, Non-Tender, No Organomegaly, No Distention, No Mass (Male) Exam: Normal Inspection, Normal Prostate. No: Scrotal Swelling, Scrotum Tenderness (L), Scrotum Tenderness (R) Rectal (Males) Exam: Normal Rectal Tone, Prostate Normal, Hemorrhoids, Rectal Fissure Back Exam: Normal Inspection, Full Range of Motion Extremities: Normal Inspection, Normal Range of Motion, Non-Tender, No Pedal Edema, Normal Capillary Refill Neurological: Alert, Oriented Course - Vital Signs Last Recorded V/S: Last Vital Signs Temp 36.3 C 10/21/19 07:41 Pulse 102 H 10/21/19 07:41 Resp 14 10/21/19 07:41 BP 139/97 H 10/21/19 07:41 Pulse Ox 97 10/21/19 07:41 Departure - Departure Time of Disposition: 09:00 Disposition: Home, Self-Care 01 Clinical Impression: Hemorrhoids - Discharge Information Instructions: Hydrocortisone suppositories, Hemorrhoids, Hydrocortisone rectal cream Referrals: Slick Lovelace MD [Primary Care Provider] - Forms: ED Department Discharge Additional Instructions: Anusol suppositories 2 suppositories inserted twice daily Anusol cream apply small amount to painful area 3 times daily Continue with theTucks pads Sitz baths can help with discomfort Recheck in clinic in 7-10 days Sepsis Event Note (ED) - Evaluation Sepsis Screening Result: No Definite Risk - Assessment/Plan Plan: Anusol suppositories 2 suppositories inserted twice daily Anusol cream apply small amount to painful area 3 times daily Continue with theTucks pads Sitz baths can help with discomfort Recheck in clinic in 7-10 days
== END 2019-10-21 08:05 | disposition home or self-care (01) ==
LOC: VM.ED 07:24 → SUPCPDRO 07:24 → VM.ED 08:05
DX: K64.9 Unspecified hemorrhoids (principal); F41.9 Anxiety disorder, unspecified; Z79.899 Other long term (current) drug therapy; Z88.0 Allergy status to penicillin
CPT/HCPCS: 99282; 99283-GF

== ENCOUNTER 2020-05-12 17:14 | Inpatient (IN) | payer MEDICARE ==
[2020-05-12] MEDS ORDERED: Pantoprazole 40 MG Vial IVPUSH ONE (17:28)
[2020-05-12] MEDS ORDERED: Lactated Ringers 1,000 ML IV ONE (17:28)
[2020-05-12] MEDS ORDERED: Ondansetron 4 MG/2 ML SDV IV ONE (17:28)
[2020-05-12] MEDS ORDERED: diphenhydrAMINE 50 MG/ML SDV IVPUSH ONE ×2 (17:28→18:59)
[2020-05-12] MEDS ORDERED: MVI, Adult with Vitamin K 10 ML, Folic Acid 1 MG, Thiamine 100 MG in Sodium Chloride 0.... IV ONE ×4 (17:29)
--- NOTE | 2020-05-12 17:35 | EDM.PDOC ---
ED HPI GENERAL MEDICAL PROBLEM - General Stated Complaint: HICCUPS Time Seen by Provider: 05/12/20 17:14 Source of Information: Reports: Patient History Limitations: Reports: No Limitations - History of Present Illness INITIAL COMMENTS - FREE TEXT/NARRATIVE: Patient comes emergency department today from home with a family member with concerns of a hiccups. The patient reports that he has had constant hiccups all day every day for the last 3 weeks. He has been nauseated and vomiting at home. He has been unable to eat or drink anything because of his hiccups. They started all on their own. He does admit to drinking alcohol all day every day and he cannot remember the last time that he has not had a drink of alcohol daily. He relates that he drinks a 1.75 L of whiskey about half to three eduar rters of that daily. He has done this for probably 20 years. He was told that in the past that he had liver failure and would not live past [place]. He does complain of nausea and vomiting. Denies any abdominal pain. No chest pain no shortness of breath or difficulty breathing. He does complain of generalized weakness malaise and fatigue. No cough or congestion. No fever no chills. No hematuria dysuria or urinary frequency. He does relate that he has had a gastric intestinal bleed in the past and he wonders if he does not have this again as he has been passing black tarry stools. He has not had any syncope. No Covid exposure no Covid symptoms. He denies any aspirin or Ibuprofen usage. He is unsure if he has any withdrawal symptoms as he has not had any days in years without alcohol. - Related Data Allergies Allergy/AdvReac Type Severity Reaction Status Date / Time Penicillins Allergy Diarrhea Verified 05/12/20 18:52 Home Meds: Home Meds LORazepam [Ativan] 1 mg PO BID PRN 03/30/13 [History] Zolpidem Tartrate 10 mg PO DAILY 01/12/18 [History] Gabapentin [Neurontin] 100 mg PO BID 10/03/18 [History] Thiamine [Vitamin B-1] 100 mg PO DAILY tablet 10/20/18 [Rx] Multivitamin [Multi-Vitamin Daily] 1 each PO DAILY 07/17/19 [History] traMADol [Ultram] 50 mg PO Q8H PRN 08/08/19 [History] Cyanocobalamin (Vitamin B-12) [Vitamin B-12] 250 mcg PO DAILY 05/12/20 [History] Lidocaine 5% 1 dose TOP Q6H PRN 05/12/20 [History] Ondansetron [Zofran] 8 mg PO Q8H PRN 05/12/20 [History] Prochlorperazine [Compazine] 10 mg PO QID 05/12/20 [History] polyethylene glycoL 3350 [MiraLAX] 17 gm PO BID 05/12/20 [History] Past Medical History Gastrointestinal History: Reports: GERD, Hemorrhoids Psychiatric History: Reports: Addiction, Anxiety, Schizophrenia ED ROS GENERAL - Review of Systems Review Of Systems: Comprehensive ROS is negative, except as noted in HPI. ED EXAM, GENERAL - Physical Exam Exam: See Below Free Text/Narrative:: The patient is moderately weak. He does need 2 people to stand up. He is quite disheveled and in hygienic arrest. When I am in the room with him remember from the HPI that he reported that he has constant hiccups all day every day for the last 3 weeks. I am in the room for approximately 25 to 30 minutes and I did not identify any hiccups. Exam Limited By: No Limitations General Appearance: Alert, WD/WN Eye Exam: Bilateral Eye: EOMI, PERRL Ears: Normal External Exam Nose: Normal Inspection Throat/Mouth: No: Normal Inspection (Oral mucosa is quite dry.) Head: Atraumatic, Normocephalic Neck: Normal Inspection, Supple, Non-Tender, Full Range of Motion Respiratory/Chest: No Respiratory Distress, Lungs Clear, Normal Breath Sounds, No Accessory Muscle Use, Chest Non-Tender Cardiovascular: Normal Peripheral Pulses, Regular Rate, Rhythm, Tachycardia Peripheral Pulses: 2+: Radial (L), Radial (R), Posterior Tibial (L), Posterior Tibial (R), Dorsalis Pedis (L), Dorsalis Pedis (R) GI/Abdominal: Normal Bowel Sounds, Soft, Non-Tender (Male) Exam: Deferred Rectal (Males) Exam: Deferred Back Exam: Normal Inspection, Full Range of Motion Extremities: Normal Inspection, Normal Range of Motion, Non-Tender, No Pedal Edema, Normal Capillary Refill Neurological: Alert, Oriented, CN II-XII Intact, Normal Cognition, Normal Gait, Normal Reflexes, No Motor/Sensory Deficits Psychiatric: Depressed Mood, Flat Affect Skin Exam: Warm, Intact, Normal Color, Diaphoretic Course - Vital Signs Last Recorded V/S: Last Vital Signs Temp 98.9 F 05/12/20 22:00 Pulse 103 H 05/12/20 22:00 Resp 18 05/12/20 22:00 BP 120/87 05/12/20 22:00 Pulse Ox 93 L 05/12/20 22:28 - Orders/Labs/Meds Orders: Active Orders 24 hr Category Date Time Status EKG Documentation Completion [RC] STAT Care 05/12/20 17:32 Active AMMONIA [REF] Stat Lab 05/12/20 17:35 Received GGT [REF] Stat Lab 05/12/20 17:35 Received Sodium Chloride 0.9% [Saline Flush] Med 05/12/20 17:28 Active 10 ml FLUSH ASDIRECTED PRN Peripheral IV Insertion Adult [OM.PC] Stat Oth 05/12/20 17:27 Ordered Medication Orders Gabapentin (Neurontin) 300 mg PO BID [facility] Last Admin: 05/12/20 20:46 Dose: 300 mg Documented by: MUKESH Sodium Chloride (Normal Saline) 1,000 mls @ 100 mls/hr IV ASDIRECTED ONE Stop: 05/13/20 07:59 Last Admin: 05/12/20 21:58 Dose: 100 mls/hr Documented by: MUKESH Lorazepam (Ativan) 0 mg PO ASDIRECTED PRN; Protocol PRN Reason: Withdrawal Symptoms Last Admin: 05/12/20 21:20 Dose: 1 mg Documented by: MUKESH Miscellaneous Information (Remove Patch) 1 ea TRDERM Q24H [facility] Multivitamins/Minerals (Thera M Plus) 1 tab PO DAILY [facility] Nicotine (Habitrol) 21 mg TRDERM Q24H [facility] Last Admin: 05/12/20 20:46 Dose: 21 mg Documented by: MUKESH Ondansetron HCl (Zofran) 4 mg IVPUSH Q8H PRN PRN Reason: Nausea Pantoprazole Sodium (Protonix Iv) 40 mg IVPUSH Q12H [facility] Last Admin: 05/12/20 20:47 Dose: 40 mg Documented by: MUKESH Sodium Chloride (Saline Flush) 10 ml FLUSH ASDIRECTED PRN PRN Reason: Keep Vein Open Thiamine HCl (Vitamin B-1) 500 mg IV TID JEAN Labs: Laboratory Tests 05/12/20 05/12/20 05/12/20 Range/Units 17:35 17:35 17:35 WBC 4.9 (4.0-10.0) x10^3/uL RBC 3.95 L (4.5-6.0) x10^6/uL Hgb 13.7 L (14.0-18.0) g/dL Hct 38.5 L (40.0-52.0) % MCV 97.5 H D (78.0-93.0) fL MCH 34.7 H (26.0-32.0) pg MCHC 35.6 (32.0-36.0) g/dL RDW Coeff of Hayde 14.1 (10.0-15.0) % Plt Count 49 L* D (130-400) x10^3/uL Neut % (Auto) 73.4 (50.0-80.0) % Lymph % (Auto) 13.7 L (25.0-50.0) % [place] % (Auto) 12.1 H (2.0-11.0) % Eos % (Auto) 0.2 (0.0-4.0) % Baso % (Auto) 0.6 (0.2-1.2) % PT 9.9 (9.5-12.3) SEC INR 0.9 L (2.0-3.5) APTT 27.2 (25.6-32.8) SEC Sodium 139 (136-145) mmol/L Potassium 3.6 (3.5-5.1) mmol/L Chloride 97 L (98-107) mmol/L Carbon Dioxide 21 (21-32) mmol/L Anion Gap 24.6 H (5-15) mmol/L BUN 11 (7-18) mg/dL Creatinine 0.5 L (0.70-1.30) mg/dL Est Cr Clr Drug Dosing TNP Estimated GFR (MDRD) > 60 Glucose 97 (74-106) mg/dL Lactic Acid (0.4-2.0) mmol/L Calcium 8.4 L (8.5-10.1) mg/dL Corrected Calcium 9.12 (8.5-10.1) mg/dL Magnesium 1.8 (1.8-2.4) mg/dL Total Bilirubin 1.3 H (0.2-1.0) mg/dL AST 363 H (15-37) U/L ALT 125 H (16-63) U/L Alkaline Phosphatase 203 H (46-116) U/L Creatine Kinase (39-308) U/L C-Reactive Protein 2.5 H (<=0.9) mg/dL Total Protein 7.5 (6.4-8.2) g/dL Albumin 3.1 L (3.4-5.0) g/dL Globulin 4.4 Albumin/Globulin Ratio 0.70 Lipase 152 (73-393) U/L Ethyl Alcohol 479 H* (0-3) mg/dL 05/12/20 05/12/20 Range/Units 17:35 17:35 WBC (4.0-10.0) x10^3/uL RBC (4.5-6.0) x10^6/uL Hgb (14.0-18.0) g/dL Hct (40.0-52.0) % MCV (78.0-93.0) fL MCH (26.0-32.0) pg MCHC (32.0-36.0) g/dL RDW Coeff of Hayde (10.0-15.0) % Plt Count (130-400) x10^3/uL Neut % (Auto) (50.0-80.0) % Lymph % (Auto) (25.0-50.0) % [place] % (Auto) (2.0-11.0) % Eos % (Auto) (0.0-4.0) % Baso % (Auto) (0.2-1.2) % PT (9.5-12.3) SEC INR (2.0-3.5) APTT (25.6-32.8) SEC Sodium (136-145) mmol/L Potassium (3.5-5.1) mmol/L Chloride (98-107) mmol/L Carbon Dioxide (21-32) mmol/L Anion Gap (5-15) mmol/L BUN (7-18) mg/dL Creatinine (0.70-1.30) mg/dL Est Cr Clr Drug Dosing Estimated GFR (MDRD) Glucose (74-106) mg/dL Lactic Acid 2.6 H* (0.4-2.0) mmol/L Calcium (8.5-10.1) mg/dL Corrected Calcium (8.5-10.1) mg/dL Magnesium (1.8-2.4) mg/dL Total Bilirubin (0.2-1.0) mg/dL AST (15-37) U/L ALT (16-63) U/L Alkaline Phosphatase (46-116) U/L Creatine Kinase 82 (39-308) U/L C-Reactive Protein (<=0.9) mg/dL Total Protein (6.4-8.2) g/dL Albumin (3.4-5.0) g/dL Globulin Albumin/Globulin Ratio Lipase (73-393) U/L Ethyl Alcohol (0-3) mg/dL Meds: Medications Generic Name Dose Route Start Last Admin Trade Name Freq PRN Reason Stop Dose Admin Gabapentin 300 mg 05/12/20 20:30 05/12/20 20:46 Neurontin PO 300 mg BID JEAN Administration Sodium Chloride 1,000 mls @ 100 mls/hr 05/12/20 22:00 05/12/20 21:58 Normal Saline IV 05/13/20 07:59 100 mls/hr ASDIRECTED ONE Administration Lorazepam 0 mg 05/12/20 20:18 05/12/20 21:20 Ativan PO 1 mg ASDIRECTED PRN Administration Withdrawal Symptoms Protocol Miscellaneous Information 1 ea 05/13/20 21:00 Remove Patch TRDERM Q24H JEAN Multivitamins/Minerals 1 tab 05/13/20 08:00 Thera M Plus PO DAILY JEAN Nicotine 21 mg 05/12/20 21:00 05/12/20 20:46 Habitrol TRDERM 21 mg Q24H JEAN Administration Ondansetron HCl 4 mg 05/13/20 06:00 Zofran IVPUSH Q8H PRN Nausea Pantoprazole Sodium 40 mg 05/12/20 20:00 05/12/20 20:47 Protonix Iv IVPUSH 40 mg Q12H JEAN Administration Sodium Chloride 10 ml 05/12/20 17:28 Saline Flush FLUSH ASDIRECTED PRN Keep Vein Open Thiamine HCl 500 mg 05/13/20 08:00 Vitamin B-1 IV TID JEAN Discontinued Medications Generic Name Dose Route Start Last Admin Trade Name Pebbles PRN Reason Stop Dose Admin Diphenhydramine HCl 25 mg 05/12/20 17:28 05/12/20 18:01 Benadryl IVPUSH 05/12/20 17:29 25 mg ONETIME ONE Administration Diphenhydramine HCl 12.5 mg 05/12/20 18:59 05/12/20 19:23 Benadryl IVPUSH 05/12/20 19:00 12.5 mg ONETIME ONE Administration Lactated Ringer's 1,000 mls @ 999 mls/hr 05/12/20 17:28 05/12/20 17:55 Ringers, Lactated IV 05/12/20 18:28 999 mls/hr ONETIME ONE Administration Multivitamins/Minerals 10 ml/ 1,011.2 mls @ 500 mls/hr 05/12/20 17:29 05/12/20 19:15 Folic Acid 1 mg/ Thiamine HCl IV 05/12/20 19:30 500 mls/hr 100 mg/ Sodium Chloride ONETIME ONE Administration Sodium Chloride 1,000 mls @ 100 mls/hr 05/12/20 19:45 Normal Saline IV ASDIRECTED JEAN Sodium Chloride 1,000 mls @ 100 mls/hr 05/12/20 21:35 Normal Saline IV ASDIRECTED JEAN Lorazepam 0 mg 05/12/20 19:39 Ativan PO ASDIRECTED PRN Withdrawal Symptoms Protocol Metoclopramide HCl 10 mg 05/12/20 18:59 05/12/20 19:25 Reglan IVPUSH 05/12/20 19:00 10 mg ONETIME ONE Administration Ondansetron HCl 4 mg 05/12/20 17:28 05/12/20 18:01 Zofran IV 05/12/20 17:29 4 mg ONETIME ONE Administration Pantoprazole Sodium 80 mg 05/12/20 17:28 05/12/20 18:01 Protonix Iv IVPUSH 05/12/20 17:29 80 mg ONETIME ONE Administration - Re-Assessments/Exams Free Text/Narrative Re-Assessment/Exam: 05/12/20 18:05 Did review this patient's chart quite extensively in [facility]. He does have a history of thrombocytopenia with a platelet count of 52 on 04-29-20. He has an extensive history of anal cancer which appears to be in remission following chemotherapy as well as radiation. Chronic pancreatitis. Chronic alcoholic hepatitis. Chronic alcoholic abuse. Recurrent major depressive disorder for which she uses alcohol on a daily basis to control as well as medical marijuana. IV LR 1 L wide open. Banana bag 500 mils an hour for 1 L. Benadryl 25mg IVP Ondansetron 4mg IVP Protonix 80mg IVP. 05/13/20 Hiccups while in the emergency department. He was given another dose of Benadryl 12.5 mg IV push as well as Reglan 10 mg IV push. He does need the assistance of 2 at the bedside to even stand to get a urine sample. He is somewhat unsteady on his feet I question if this is from his severe alcohol intoxication with an alcohol of almost 500 or with his chronic alcohol abuse this concerns me as well for Warnicke's encephalopathy. He is supposed to be taking thiamine at home but he has not been taking his medications. With the severe alcohol intoxication as well as concern for detox his lower intestinal hemorrhage and he is reporting his history of gastritis as well as my concern for possibility of Wernicke's encephalopathy. I called and spoke with Dr. Brothers about admitting this patient. HPI ER COURSE findings and concerns were relayed to her. I informed her of the thiamine serum that was pending. She accepted the patient into acute care here for further care management. This malika ent has not eaten in days and severe risk for worsening at home with his chronic alcohol abuse. Surprisingly his electrolytes are pretty normal. Departure - Departure Time of Disposition: 18:00 Disposition: Admitted As Inpatient 64 Clinical Impression: Alcohol abuse, Weakness generalized Acute alcohol intoxication Qualifiers: Complication of substance-induced condition: uncomplicated Qualified Code(s): F10.920 - Alcohol use, unspecified with intoxication, uncomplicated GERD (gastroesophageal reflux disease) Qualifiers: Esophagitis presence: with esophagitis Esophagitis bleeding: with hemorrhage Qualified Code(s): K21.01 - Gastro-esophageal reflux disease with esophagitis, with bleeding GI bleed Qualifiers: GI bleed type/associated pathology: unspecified gastrointestinal hemorrhage type Qualified Code(s): K92.2 - Gastrointestinal hemorrhage, unspecified Malnutrition Qualifiers: Malnutrition type: protein-calorie malnutrition Protein-calorie malnutrition severity: unspecified severity Qualified Code(s): E46 - Unspecified protein- calorie malnutrition - Discharge Information Sepsis Event Note (ED) - Focused Exam Vital Signs: Vital Signs Temp Pulse Resp BP Pulse Ox 05/12/20 17:20 97.8 F 98 16 134/88 96 - My Orders Last 24 Hours: My Active Orders 05/12/20 17:27 Peripheral IV Insertion Adult [OM.PC] Stat 05/12/20 17:28 Sodium Chloride 0.9% [Saline Flush] 10 ml FLUSH ASDIRECTED PRN 05/12/20 17:32 EKG Documentation Completion [RC] STAT 05/12/20 17:35 AMMONIA [REF] Stat GGT [REF] Stat - Assessment/Plan Last 24 Hours: My Active Orders 05/12/20 17:27 Peripheral IV Insertion Adult [OM.PC] Stat 05/12/20 17:28 Sodium Chloride 0.9% [Saline Flush] 10 ml FLUSH ASDIRECTED PRN 05/12/20 17:32 EKG Documentation Completion [RC] STAT 05/12/20 17:35 AMMONIA [REF] Stat GGT [REF] Stat
[2020-05-12 18:00] LABS: PTT,PARTIAL THROMBOPLSTIN TIME 27.2 SEC (25.6-32.8)
[2020-05-12 18:21] LABS: CHLORIDE,CL 97 mmol/L (98-107); SODIUM,NA 139 mmol/L (136-145)
[2020-05-12 18:22] LABS: ANION GAP 24.6 mmol/L (5-15)
[2020-05-12] MEDS ORDERED: Metoclopramide 10 MG/2 ML SDV IVPUSH ONE (18:59)
[2020-05-12 19:29] LABS: BARBITURATE SCREEN,URINE NEGATIVE (NEGATIVE); BENZODIAZEPINES SCREEN,URINE NEGATIVE (NEGATIVE); EDDP,URINE SCREEN NEGATIVE (NEGATIVE); METHAMPHETAMINE SCREEN, URINE NEGATIVE (NEGATIVE); TCA SCREEN,URINE NEGATIVE (NEGATIVE); THC SCREEN,URINE 50 NG/ML NEGATIVE (NEGATIVE)
[2020-05-12] MEDS ORDERED: LORazepam 1 MG Tab PO PRN (19:39)
[2020-05-12] MEDS ORDERED: Sodium Chloride 0.9% 1,000 ML IV SCH ×2 (19:45→21:35)
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
[2020-05-12] MEDS: Gabapentin 300 MG Cap PO SCH (20:46)
[2020-05-12] MEDS: Nicotine 21 MG/24 Hr Patch TRDERM SCH (20:46)
[2020-05-12] MEDS: Pantoprazole 40 MG Vial IVPUSH SCH (20:47)
[2020-05-12] MEDS: LORazepam 1 MG Tab PO PRN (21:20)
[2020-05-12] MEDS: Sodium Chloride 0.9% 1,000 ML IV ONE (21:58)
[2020-05-13] MEDS: Ondansetron 4 MG/2 ML SDV IVPUSH PRN ×3 (05:45→17:57)
[2020-05-13] MEDS: LORazepam 1 MG Tab PO PRN ×5 (06:02→20:29)
[2020-05-13 07:02] LABS: CHLORIDE,CL 99 mmol/L (98-107); SODIUM,NA 138 mmol/L (136-145)
[2020-05-13 07:04] LABS: ANION GAP 21.5 mmol/L (5-15)
[2020-05-13] MEDS: Sodium Chloride 0.9% 1,000 ML IV ONE (07:30)
[2020-05-13] MEDS: Pantoprazole 40 MG Vial IVPUSH SCH ×2 (07:32→20:25)
[2020-05-13] MEDS: Thiamine 200 MG/2 ML MDV IV SCH ×3 (07:41→20:26)
[2020-05-13] MEDS: Gabapentin 300 MG Cap PO SCH ×2 (07:43→20:25)
[2020-05-13] MEDS: Multivitamins with Iron/Calcium/Folic Acid/Minerals Tab PO SCH (07:43)
--- NOTE | 2020-05-13 08:23 | PCM.PN ---
- General Info Date of Service: 05/13/20 Subjective Update: 55 yo male hospital day #2 admitted with hiccups, a presumed GI bleed, and alcohol detox. Patient states he did not get much sleep last night. States that this is due to his back hurting. States that he has had this back pain since some of his falls. More in the muscles and described as tightness. Has had hiccups off and on but these have been improved. He has not tried to eat or drink anything as he is NPO. He is not having any abdominal pain. There are 2 BM's charted but he and the nursing staff state that he has not had any bowel movements since admission. No vomiting. He is feeling anxious and jittery this morning and feels he needs more medicine for withdrawal. Nursing staff have had the patient up to the restroom and describe him as a "heavy assist of 2." He has significant balance issues and a shuffling gait, per their description. - Review of Systems General: Reports: No Symptoms HEENT: Reports: No Symptoms Pulmonary: Reports: No Symptoms Cardiovascular: Reports: No Symptoms Gastrointestinal: Reports: No Symptoms Genitourinary: Reports: No Symptoms Musculoskeletal: Reports: Back Pain Skin: Reports: No Symptoms Neurological: Reports: No Symptoms - Patient Data Vitals - Most Recent: Last Vital Signs Temp 37.1 C 05/13/20 05:51 Pulse 106 H 05/13/20 05:51 Resp 18 05/13/20 05:51 BP 129/66 05/13/20 05:51 Pulse Ox 95 05/13/20 05:51 Weight - Most Recent: 63.639 kg I&O - Last 24 Hours: Intake & Output 05/12/20 05/13/20 05/13/20 22:59 06:59 14:59 Intake Total 1000 1200 Output Total 125 Balance 1000 1075 Lab Results Last 24 Hours: Laboratory Results - last 24 hr 05/12/20 05/12/20 05/12/20 Range/Units 17:35 17:35 17:35 WBC 4.9 (4.0-10.0) x10^3/uL RBC 3.95 L (4.5-6.0) x10^6/uL Hgb 13.7 L (14.0-18.0) g/dL Hct 38.5 L (40.0-52.0) % MCV 97.5 H D (78.0-93.0) fL MCH 34.7 H (26.0-32.0) pg MCHC 35.6 (32.0-36.0) g/dL RDW Coeff of Hayde 14.1 (10.0-15.0) % Plt Count 49 L* D (130-400) x10^3/uL Neut % (Auto) 73.4 (50.0-80.0) % Lymph % (Auto) 13.7 L (25.0-50.0) % Bullock % (Auto) 12.1 H (2.0-11.0) % Eos % (Auto) 0.2 (0.0-4.0) % Baso % (Auto) 0.6 (0.2-1.2) % PT 9.9 (9.5-12.3) SEC INR 0.9 L (2.0-3.5) APTT 27.2 (25.6-32.8) SEC Sodium 139 (136-145) mmol/L Potassium 3.6 (3.5-5.1) mmol/L Chloride 97 L (98-107) mmol/L Carbon Dioxide 21 (21-32) mmol/L Anion Gap 24.6 H (5-15) mmol/L BUN 11 (7-18) mg/dL Creatinine 0.5 L (0.70-1.30) mg/dL Est Cr Clr Drug Dosing TNP Estimated GFR (MDRD) > 60 Glucose 97 (74-106) mg/dL Lactic Acid (0.4-2.0) mmol/L Calcium 8.4 L (8.5-10.1) mg/dL Corrected Calcium 9.12 (8.5-10.1) mg/dL Magnesium 1.8 (1.8-2.4) mg/dL Total Bilirubin 1.3 H (0.2-1.0) mg/dL GGT (9-64) U/L AST 363 H (15-37) U/L ALT 125 H (16-63) U/L Alkaline Phosphatase 203 H (46-116) U/L Ammonia (6-47) umol/L Creatine Kinase (39-308) U/L C-Reactive Protein 2.5 H (<=0.9) mg/dL Total Protein 7.5 (6.4-8.2) g/dL Albumin 3.1 L (3.4-5.0) g/dL Globulin 4.4 Albumin/Globulin Ratio 0.70 Lipase 152 (73-393) U/L Specimen Appearance (CLEAR) Urine Color (YELLOW) Urine Appearance (CLEAR) Urine pH (5.0-8.0) Ur Specific Oral Urine Protein (NEGATIVE) mg/dL Urine Glucose (UA) (NEGATIVE) mg/dL Urine Ketones (NEGATIVE) mg/dL Urine Occult Blood (NEGATIVE) Urine Nitrite (NEGATIVE) Urine Bilirubin (NEGATIVE) Urine Urobilinogen (0.2) EU/dL Ur Leukocyte Esterase (NEGATIVE) Urine RBC (NOT SEEN) /HPF Urine WBC (NOT SEEN) /HPF Ur Squamous Epith Cells (NEGATIVE) /HPF Urine Bacteria (NEGATIVE) /HPF Urine Mucus (NEGATIVE) /LPF Urine Opiates Screen (NEAGTIVE) Ur Buprenorphine Scrn (NEGATIVE) Ur Oxycodone Screen (NEGATIVE) Ur EDDP (Meth Metab) (NEGATIVE) Urine Methadone Screen (NEGATIVE) Ur Barbiturates Screen (NEGATIVE) Ur Tricyclics Screen (NEGATIVE) Ur Phencyclidine Scrn (NEGATIVE) Ur Amphetamine Screen (NEGATIVE) U Methamphetamines Scrn (NEGATIVE) Urine MDMA Screen (NEGATIVE) U Benzodiazepines Scrn (NEGATIVE) U Cocaine Metab Screen (NEGATIVE) U Marijuana (THC) Screen (NEGATIVE) Ethyl Alcohol 479 H* (0-3) mg/dL SARS CoV-2 RNA Rapid BONILLA (NEGATIVE) 05/12/20 05/12/20 05/12/20 Range/Units 17:35 17:35 17:35 WBC (4.0-10.0) x10^3/uL RBC (4.5-6.0) x10^6/uL Hgb (14.0-18.0) g/dL Hct (40.0-52.0) % MCV (78.0-93.0) fL MCH (26.0-32.0) pg MCHC (32.0-36.0) g/dL RDW Coeff of Hayde (10.0-15.0) % Plt Count (130-400) x10^3/uL Neut % (Auto) (50.0-80.0) % Lymph % (Auto) (25.0-50.0) % Bullock % (Auto) (2.0-11.0) % Eos % (Auto) (0.0-4.0) % Baso % (Auto) (0.2-1.2) % PT (9.5-12.3) SEC INR (2.0-3.5) APTT (25.6-32.8) SEC Sodium (136-145) mmol/L Potassium (3.5-5.1) mmol/L Chloride (98-107) mmol/L Carbon Dioxide (21-32) mmol/L Anion Gap (5-15) mmol/L BUN (7-18) mg/dL Creatinine (0.70-1.30) mg/dL Est Cr Clr Drug Dosing Estimated GFR (MDRD) Glucose (74-106) mg/dL Lactic Acid 2.6 H* (0.4-2.0) mmol/L Calcium (8.5-10.1) mg/dL Corrected Calcium (8.5-10.1) mg/dL Magnesium (1.8-2.4) mg/dL Total Bilirubin (0.2-1.0) mg/dL GGT 1286 H (9-64) U/L AST (15-37) U/L ALT (16-63) U/L Alkaline Phosphatase (46-116) U/L Ammonia 128 H (6-47) umol/L Creatine Kinase (39-308) U/L C-Reactive Protein (<=0.9) mg/dL Total Protein (6.4-8.2) g/dL Albumin (3.4-5.0) g/dL Globulin Albumin/Globulin Ratio Lipase (73-393) U/L Specimen Appearance Clear (CLEAR) Urine Color (YELLOW) Urine Appearance (CLEAR) Urine pH (5.0-8.0) Ur Specific Oral Urine Protein (NEGATIVE) mg/dL Urine Glucose (UA) (NEGATIVE) mg/dL Urine Ketones (NEGATIVE) mg/dL Urine Occult Blood (NEGATIVE) Urine Nitrite (NEGATIVE) Urine Bilirubin (NEGATIVE) Urine Urobilinogen (0.2) EU/dL Ur Leukocyte Esterase (NEGATIVE) Urine RBC (NOT SEEN) /HPF Urine WBC (NOT SEEN) /HPF Ur Squamous Epith Cells (NEGATIVE) /HPF Urine Bacteria (NEGATIVE) /HPF Urine Mucus (NEGATIVE) /LPF Urine Opiates Screen (NEAGTIVE) Ur Buprenorphine Scrn (NEGATIVE) Ur Oxycodone Screen (NEGATIVE) Ur EDDP (Meth Metab) (NEGATIVE) Urine Methadone Screen (NEGATIVE) Ur Barbiturates Screen (NEGATIVE) Ur Tricyclics Screen (NEGATIVE) Ur Phencyclidine Scrn (NEGATIVE) Ur Amphetamine Screen (NEGATIVE) U Methamphetamines Scrn (NEGATIVE) Urine MDMA Screen (NEGATIVE) U Benzodiazepines Scrn (NEGATIVE) U Cocaine Metab Screen (NEGATIVE) U Marijuana (THC) Screen (NEGATIVE) Ethyl Alcohol (0-3) mg/dL SARS CoV-2 RNA Rapid BONILLA (NEGATIVE) 05/12/20 05/12/20 05/12/20 Range/Units 17:35 19:18 19:18 WBC (4.0-10.0) x10^3/uL RBC (4.5-6.0) x10^6/uL Hgb (14.0-18.0) g/dL Hct (40.0-52.0) % MCV (78.0-93.0) fL MCH (26.0-32.0) pg MCHC (32.0-36.0) g/dL RDW Coeff of Hayde (10.0-15.0) % Plt Count (130-400) x10^3/uL Neut % (Auto) (50.0-80.0) % Lymph % (Auto) (25.0-50.0) % Bullock % (Auto) (2.0-11.0) % Eos % (Auto) (0.0-4.0) % Baso % (Auto) (0.2-1.2) % PT (9.5-12.3) SEC INR (2.0-3.5) APTT (25.6-32.8) SEC Sodium (136-145) mmol/L Potassium (3.5-5.1) mmol/L Chloride (98-107) mmol/L Carbon Dioxide (21-32) mmol/L Anion Gap (5-15) mmol/L BUN (7-18) mg/dL Creatinine (0.70-1.30) mg/dL Est Cr Clr Drug Dosing Estimated GFR (MDRD) Glucose (74-106) mg/dL Lactic Acid (0.4-2.0) mmol/L Calcium (8.5-10.1) mg/dL Corrected Calcium (8.5-10.1) mg/dL Magnesium (1.8-2.4) mg/dL Total Bilirubin (0.2-1.0) mg/dL GGT (9-64) U/L AST (15-37) U/L ALT (16-63) U/L Alkaline Phosphatase (46-116) U/L Ammonia (6-47) umol/L Creatine Kinase 82 (39-308) U/L C-Reactive Protein (<=0.9) mg/dL Total Protein (6.4-8.2) g/dL Albumin (3.4-5.0) g/dL Globulin Albumin/Globulin Ratio Lipase (73-393) U/L Specimen Appearance (CLEAR) Urine Color Yellow (YELLOW) Urine Appearance Slightly cloudy H (CLEAR) Urine pH 6.0 (5.0-8.0) Ur Specific Oral <=1.005 Urine Protein 100 H (NEGATIVE) mg/dL Urine Glucose (UA) Negative (NEGATIVE) mg/dL Urine Ketones 40 H (NEGATIVE) mg/dL Urine Occult Blood Trace-lysed H (NEGATIVE) Urine Nitrite Negative (NEGATIVE) Urine Bilirubin Negative (NEGATIVE) Urine Urobilinogen 2.0 H (0.2) EU/dL Ur Leukocyte Esterase Negative (NEGATIVE) Urine RBC 5-10 H (NOT SEEN) /HPF Urine WBC 0-5 (NOT SEEN) /HPF Ur Squamous Epith Cells Not seen (NEGATIVE) /HPF Urine Bacteria Rare (NEGATIVE) /HPF Urine Mucus Few H (NEGATIVE) /LPF Urine Opiates Screen Negative (NEAGTIVE) Ur Buprenorphine Scrn Negative (NEGATIVE) Ur Oxycodone Screen Negative (NEGATIVE) Ur EDDP (Meth Metab) Negative (NEGATIVE) Urine Methadone Screen Negative (NEGATIVE) Ur Barbiturates Screen Negative (NEGATIVE) Ur Tricyclics Screen Negative (NEGATIVE) Ur Phencyclidine Scrn Negative (NEGATIVE) Ur Amphetamine Screen Negative (NEGATIVE) U Methamphetamines Scrn Negative (NEGATIVE) Urine MDMA Screen Negative (NEGATIVE) U Benzodiazepines Scrn Negative (NEGATIVE) U Cocaine Metab Screen Negative (NEGATIVE) U Marijuana (THC) Screen Negative (NEGATIVE) Ethyl Alcohol (0-3) mg/dL SARS CoV-2 RNA Rapid BONILLA (NEGATIVE) 05/12/20 05/13/20 05/13/20 Range/Units 19:18 06:30 06:30 WBC 4.4 (4.0-10.0) x10^3/uL RBC 3.36 L (4.5-6.0) x10^6/uL Hgb 11.5 L D (14.0-18.0) g/dL Hct 33.4 L (40.0-52.0) % MCV 99.4 H (78.0-93.0) fL MCH 34.2 H (26.0-32.0) pg MCHC 34.4 (32.0-36.0) g/dL RDW Coeff of Hayde 14.1 (10.0-15.0) % Plt Count 32 L* (130-400) x10^3/uL Neut % (Auto) 82.3 H (50.0-80.0) % Lymph % (Auto) 7.1 L (25.0-50.0) % Bullock % (Auto) 9.9 (2.0-11.0) % Eos % (Auto) 0.2 (0.0-4.0) % Baso % (Auto) 0.5 (0.2-1.2) % PT (9.5-12.3) SEC INR (2.0-3.5) APTT (25.6-32.8) SEC Sodium 138 (136-145) mmol/L Potassium 3.5 (3.5-5.1) mmol/L Chloride 99 (98-107) mmol/L Carbon Dioxide 21 (21-32) mmol/L Anion Gap 21.5 H (5-15) mmol/L BUN 7 (7-18) mg/dL Creatinine 0.5 L (0.70-1.30) mg/dL Est Cr Clr Drug Dosing 141.79 Estimated GFR (MDRD) > 60 Glucose 81 (74-106) mg/dL Lactic Acid (0.4-2.0) mmol/L Calcium 7.6 L (8.5-10.1) mg/dL Corrected Calcium 8.72 (8.5-10.1) mg/dL Magnesium (1.8-2.4) mg/dL Total Bilirubin 1.2 H (0.2-1.0) mg/dL GGT (9-64) U/L AST 242 H (15-37) U/L ALT 94 H (16-63) U/L Alkaline Phosphatase 157 H (46-116) U/L Ammonia (6-47) umol/L Creatine Kinase (39-308) U/L C-Reactive Protein (<=0.9) mg/dL Total Protein 6.2 L (6.4-8.2) g/dL Albumin 2.6 L (3.4-5.0) g/dL Globulin 3.6 Albumin/Globulin Ratio 0.72 Lipase (73-393) U/L Specimen Appearance (CLEAR) Urine Color (YELLOW) Urine Appearance (CLEAR) Urine pH (5.0-8.0) Ur Specific Oral Urine Protein (NEGATIVE) mg/dL Urine Glucose (UA) (NEGATIVE) mg/dL Urine Ketones (NEGATIVE) mg/dL Urine Occult Blood (NEGATIVE) Urine Nitrite (NEGATIVE) Urine Bilirubin (NEGATIVE) Urine Urobilinogen (0.2) EU/dL Ur Leukocyte Esterase (NEGATIVE) Urine RBC (NOT SEEN) /HPF Urine WBC (NOT SEEN) /HPF Ur Squamous Epith Cells (NEGATIVE) /HPF Urine Bacteria (NEGATIVE) /HPF Urine Mucus (NEGATIVE) /LPF Urine Opiates Screen (NEAGTIVE) Ur Buprenorphine Scrn (NEGATIVE) Ur Oxycodone Screen (NEGATIVE) Ur EDDP (Meth Metab) (NEGATIVE) Urine Methadone Screen (NEGATIVE) Ur Barbiturates Screen (NEGATIVE) Ur Tricyclics Screen (NEGATIVE) Ur Phencyclidine Scrn (NEGATIVE) Ur Amphetamine Screen (NEGATIVE) U Methamphetamines Scrn (NEGATIVE) Urine MDMA Screen (NEGATIVE) U Benzodiazepines Scrn (NEGATIVE) U Cocaine Metab Screen (NEGATIVE) U Marijuana (THC) Screen (NEGATIVE) Ethyl Alcohol (0-3) mg/dL SARS CoV-2 RNA Rapid BONILLA Negative (NEGATIVE) 05/13/20 Range/Units 06:30 WBC (4.0-10.0) x10^3/uL RBC (4.5-6.0) x10^6/uL Hgb (14.0-18.0) g/dL Hct (40.0-52.0) % MCV (78.0-93.0) fL MCH (26.0-32.0) pg MCHC (32.0-36.0) g/dL RDW Coeff of Hayde (10.0-15.0) % Plt Count (130-400) x10^3/uL Neut % (Auto) (50.0-80.0) % Lymph % (Auto) (25.0-50.0) % Bullock % (Auto) (2.0-11.0) % Eos % (Auto) (0.0-4.0) % Baso % (Auto) (0.2-1.2) % PT (9.5-12.3) SEC INR (2.0-3.5) APTT (25.6-32.8) SEC Sodium (136-145) mmol/L Potassium (3.5-5.1) mmol/L Chloride (98-107) mmol/L Carbon Dioxide (21-32) mmol/L Anion Gap (5-15) mmol/L BUN (7-18) mg/dL Creatinine (0.70-1.30) mg/dL Est Cr Clr Drug Dosing Estimated GFR (MDRD) Glucose (74-106) mg/dL Lactic Acid 2.6 H* (0.4-2.0) mmol/L Calcium (8.5-10.1) mg/dL Corrected Calcium (8.5-10.1) mg/dL Magnesium (1.8-2.4) mg/dL Total Bilirubin (0.2-1.0) mg/dL GGT (9-64) U/L AST (15-37) U/L ALT (16-63) U/L Alkaline Phosphatase (46-116) U/L Ammonia (6-47) umol/L Creatine Kinase (39-308) U/L C-Reactive Protein (<=0.9) mg/dL Total Protein (6.4-8.2) g/dL Albumin (3.4-5.0) g/dL Globulin Albumin/Globulin Ratio Lipase (73-393) U/L Specimen Appearance (CLEAR) Urine Color (YELLOW) Urine Appearance (CLEAR) Urine pH (5.0-8.0) Ur Specific Oral Urine Protein (NEGATIVE) mg/dL Urine Glucose (UA) (NEGATIVE) mg/dL Urine Ketones (NEGATIVE) mg/dL Urine Occult Blood (NEGATIVE) Urine Nitrite (NEGATIVE) Urine Bilirubin (NEGATIVE) Urine Urobilinogen (0.2) EU/dL Ur Leukocyte Esterase (NEGATIVE) Urine RBC (NOT SEEN) /HPF Urine WBC (NOT SEEN) /HPF Ur Squamous Epith Cells (NEGATIVE) /HPF Urine Bacteria (NEGATIVE) /HPF Urine Mucus (NEGATIVE) /LPF Urine Opiates Screen (NEAGTIVE) Ur Buprenorphine Scrn (NEGATIVE) Ur Oxycodone Screen (NEGATIVE) Ur EDDP (Meth Metab) (NEGATIVE) Urine Methadone Screen (NEGATIVE) Ur Barbiturates Screen (NEGATIVE) Ur Tricyclics Screen (NEGATIVE) Ur Phencyclidine Scrn (NEGATIVE) Ur Amphetamine Screen (NEGATIVE) U Methamphetamines Scrn (NEGATIVE) Urine MDMA Screen (NEGATIVE) U Benzodiazepines Scrn (NEGATIVE) U Cocaine Metab Screen (NEGATIVE) U Marijuana (THC) Screen (NEGATIVE) Ethyl Alcohol (0-3) mg/dL SARS CoV-2 RNA Rapid BONILLA (NEGATIVE) Med Orders - Current: Current Medications Cyclobenzaprine HCl (Flexeril) 5 mg PO TID PRN PRN Reason: back pain Gabapentin (Neurontin) 300 mg PO BID [facility] Last Admin: 05/13/20 07:43 Dose: 300 mg Documented by: Lorazepam (Ativan) 0 mg PO ASDIRECTED PRN; Protocol PRN Reason: Withdrawal Symptoms Last Admin: 05/13/20 07:43 Dose: 1 mg Documented by: Miscellaneous Information (Remove Patch) 1 ea TRDERM Q24H [facility] Multivitamins/Minerals (Thera M Plus) 1 tab PO DAILY [facility] Last Admin: 05/13/20 07:43 Dose: 1 tab Documented by: Nicotine (Habitrol) 21 mg TRDERM Q24H [facility] Last Admin: 05/12/20 20:46 Dose: 21 mg Documented by: Ondansetron HCl (Zofran) 4 mg IVPUSH Q8H PRN PRN Reason: Nausea Last Admin: 05/13/20 05:45 Dose: 4 mg Documented by: Pantoprazole Sodium (Protonix Iv) 40 mg IVPUSH Q12H [facility] Last Admin: 05/13/20 07:32 Dose: 40 mg Documented by: Sodium Chloride (Saline Flush) 10 ml FLUSH ASDIRECTED PRN PRN Reason: Keep Vein Open Thiamine HCl (Vitamin B-1) 500 mg IV TID [facility] Last Admin: 05/13/20 07:41 Dose: 500 mg Documented by: Discontinued Medications Diphenhydramine HCl (Benadryl) 25 mg IVPUSH ONETIME ONE Stop: 05/12/20 17:29 Last Admin: 05/12/20 18:01 Dose: 25 mg Documented by: Diphenhydramine HCl (Benadryl) 12.5 mg IVPUSH ONETIME ONE Stop: 05/12/20 19:00 Last Admin: 05/12/20 19:23 Dose: 12.5 mg Documented by: Lactated Ringer's (Ringers, Lactated) 1,000 mls @ 999 mls/hr IV ONETIME ONE Stop: 05/12/20 18:28 Last Admin: 05/12/20 17:55 Dose: 999 mls/hr Documented by: Multivitamins/Minerals 10 ml/Folic Acid 1 mg/ Thiamine HCl 100 mg/ Sodium Chloride 1,011.2 mls @ 500 mls/hr IV ONETIME ONE Stop: 05/12/20 19:30 Last Admin: 05/12/20 19:15 Dose: 500 mls/hr Documented by: Sodium Chloride (Normal Saline) 1,000 mls @ 100 mls/hr IV ASDIRECTED JEAN Sodium Chloride (Normal Saline) 1,000 mls @ 100 mls/hr IV ASDIRECTED JEAN Sodium Chloride (Normal Saline) 1,000 mls @ 100 mls/hr IV ASDIRECTED ONE Stop: 05/13/20 07:59 Last Admin: 05/13/20 07:30 Dose: 100 mls/hr Documented by: Lorazepam (Ativan) 0 mg PO ASDIRECTED PRN; Protocol PRN Reason: Withdrawal Symptoms Metoclopramide HCl (Reglan) 10 mg IVPUSH ONETIME ONE Stop: 05/12/20 19:00 Last Admin: 05/12/20 19:25 Dose: 10 mg Documented by: Ondansetron HCl (Zofran) 4 mg IV ONETIME ONE Stop: 05/12/20 17:29 Last Admin: 05/12/20 18:01 Dose: 4 mg Documented by: Pantoprazole Sodium (Protonix Iv) 80 mg IVPUSH ONETIME ONE Stop: 05/12/20 17:29 Last Admin: 05/12/20 18:01 Dose: 80 mg Documented by: - Exam General: Alert, Oriented, Cooperative, No Acute Distress HEENT: Mucous Membr. Moist/[place] Neck: Supple, Trachea Midline, No Thyromegaly. No: Lymphadenopathy Lungs: Clear to Auscultation, Normal Respiratory Effort Cardiovascular: Regular Rate, Regular Rhythm, No Murmurs GI/Abdominal Exam: Normal Bowel Sounds, Soft, Non-Tender, No Organomegaly, No Distention, No Mass Back Exam: Paraspinal Tenderness. No: Vertebral Tenderness Extremities: Non-Tender, No Pedal Edema, Normal Capillary Refill Peripheral Pulses: 2+: Radial (L), Radial (R) Skin: Warm, Dry, Intact Neurological: No New Focal Deficit Sepsis Event Note - Evaluation Sepsis Screening Result: No Definite Risk - Focused Exam Vital Signs: Vital Signs Temp Pulse Resp BP Pulse Ox Pulse Ox 05/13/20 05:51 37.1 C 106 H 18 129/66 95 05/13/20 02:00 37.6 C 105 H 20 117/77 95 05/12/20 22:28 93 L 05/12/20 22:00 37.2 C 103 H 18 120/87 92 L - Problem List & Annotations (1) Alcohol withdrawal syndrome SNOMED Code(s): 389257008 Code(s): F10.239 - ALCOHOL DEPENDENCE WITH WITHDRAWAL, UNSPECIFIED Status: Acute Priority: Medium Current Visit: No Qualifiers: Complication of substance-induced condition: uncomplicated Qualified Code(s): F10.230 - Alcohol dependence with withdrawal, uncomplicated (2) Alcohol abuse SNOMED Code(s): 06760727 Code(s): F10.10 - ALCOHOL ABUSE, UNCOMPLICATED Status: Acute Current Visit: Yes (3) Alcoholic hepatitis SNOMED Code(s): 556311333 Code(s): K70.10 - ALCOHOLIC HEPATITIS WITHOUT ASCITES Status: Chronic Current Visit: Yes Qualifiers: Ascites presence: without ascites Qualified Code(s): K70.10 - Alcoholic hepatitis without ascites (4) Thrombocytopenia SNOMED Code(s): 266787385 Code(s): D69.6 - THROMBOCYTOPENIA, UNSPECIFIED Status: Chronic Current Visit: Yes (5) Melena SNOMED Code(s): 0374940 Code(s): K92.1 - MELENA Status: Acute Current Visit: Yes (6) GERD (gastroesophageal reflux disease) SNOMED Code(s): 583200016 Code(s): K21.9 - GASTRO-ESOPHAGEAL REFLUX DISEASE WITHOUT ESOPHAGITIS Status: Chronic Current Visit: Yes Qualifiers: Esophagitis presence: with esophagitis Esophagitis bleeding: with hemorrhage Qualified Code(s): K21.01 - Gastro-esophageal reflux disease with esophagitis, with bleeding (7) Hiccups SNOMED Code(s): 94870050 Code(s): R06.6 - HICCOUGH Status: Acute Current Visit: Yes (8) Delirium SNOMED Code(s): 9062791 Code(s): R41.0 - DISORIENTATION, UNSPECIFIED Status: Acute Current Visit: Yes (9) Frequent falls SNOMED Code(s): 501544553 Code(s): R29.6 - REPEATED FALLS Status: Acute Current Visit: Yes (10) Back pain SNOMED Code(s): 003336992 Code(s): M54.9 - DORSALGIA, UNSPECIFIED Status: Acute Current Visit: Yes Qualifiers: Back pain location: low back pain Chronicity: acute Back pain laterality: bilateral Sciatica presence: without sciatica Qualified Code(s): M54.5 - Low back pain (11) Nicotine use disorder SNOMED Code(s): 50031341 Code(s): F17.200 - NICOTINE DEPENDENCE, UNSPECIFIED, UNCOMPLICATED Status: Chronic Current Visit: Yes (12) PTSD (post-traumatic stress disorder) SNOMED Code(s): 91101010 Code(s): F43.10 - POST-TRAUMATIC STRESS DISORDER, UNSPECIFIED Status: Chronic Current Visit: Yes - Problem List Review Problem List Initiated/Reviewed/Updated: Yes - My Orders Last 24 Hours: My Active Orders 05/12/20 Breakfast Nothing per Oral Now Diet [DIET] 05/12/20 19:37 Notify Provider Vital Signs [RC] .PRN Oxygen Therapy [RC] .PRN Up With Assistance [RC] 08,20 VTE/DVT Education [RC] .PRN Vital Signs [RC] 06,10,14,18,22,02 Anticoagulation Contraindications VTE [AST] Per Unit Routine Resuscitation Status Routine 05/12/20 19:39 CIWAA Assessment [RC] Q1H Notify Provider [RC] .PRN 05/12/20 19:42 Consult to Case Management/[facility] [CONS] Routine 05/12/20 20:00 Pantoprazole [ProTONIX IV] 40 mg IVPUSH Q12H 05/12/20 20:18 LORazepam [Ativan] See Protocol PO ASDIRECTED PRN 05/12/20 20:21 Fecal Occult Bld Diag Imm [RC] ASDIRECTED 05/12/20 20:30 Gabapentin [Neurontin] 300 mg PO BID 05/12/20 20:50 Antiembolic Devices [RC] PER UNIT ROUTINE SCD [Sequential Compression Device] [OM.PC] Routine 05/12/20 21:00 Nicotine [Habitrol] 21 mg TRDERM Q24H 05/13/20 06:00 Ondansetron [Zofran] 4 mg IVPUSH Q8H PRN 05/13/20 08:00 Multivitamins w-Iron/Ca/FA/Min [Thera M Plus] 1 tab PO DAILY Thiamine [Vitamin B-1] 500 mg IV TID 05/13/20 08:19 PT Evaluation and Treatment [CONS] Routine Lumbar Spine 2 or 3V [CR] Routine Cyclobenzaprine [Flexeril] 5 mg PO TID PRN 05/13/20 21:00 Remove Patch 1 ea TRDERM Q24H - Assessment Assessment:: 55 yo male hospital day #2 admitted with hiccups, presumed GI bleed, and alcohol withdrawal. Is looking clinically much better today but he does not really feel much better. Hgb and platelet downtrending, rest of labs stable. - Plan Plan:: #1 Alcohol Withdrawal Syndrome #2 Alcohol abuse #3 Alcoholic hepatitis #4 Thrombocytopenia, likely secondary to #2 - Patient with no history of seizures but there likely has not been opportunity for that to occur. - Therefore, continues to need close monitoring. - CIWA q1 hour with PRN lorazepam based on CIWA scores. Depending on course today, could look at spacing this out overnight. - Continue gabapentin 300 mg BID. - Lactic acid remains elevated, likely related to dehydration and poor nutritional status. Will recheck at 2 pm. - Continue IV fluids, PRN zofran, oral MVT, and IV thiamine. - Case management consult ordered. #5 Melena #6 GERD with esophagitis - Presumed to be secondary to gastritis/esophagitis. - Stool occult blood ordered, not done yet as he has not had a BM. - Hgb down likely at least in part related to hemodilution. Will recheck at 2 pm and again in the am. - Pantoprazole IV 40 mg BID. - NPO until hemoglobin stable. - Transfusion threshold <7 or vital sign changes or symptoms. #7 Hiccups - Doing much better. - Scheduled gabapentin as above. - If symptoms recur, then could consider repeat dosing of benadryl and/or reglan. #8 Delirium #9 Frequent falls - Unclear whether this is secondary to his alcohol use or whether he truly has Wernicke encephalopathy. - Will treat as the latter until clarified. Thiamine level pending. - PT consult ordered for ambulation. #10 Back Pain - Likely muscular based on location and description. - However, given his poor nutritional status in the setting of fpc alcohol abuse as well as multiple recent falls, will do x-rays to rule out any evidence for fracture. #11 Nicotine Use Disorder - Patch ordered. #12 PTSD - Home lorazepam held in light of above. Patient will remain on acute today for further evaluation and management of the above conditions - anticipate he will be admitted for at least another 48 hours to monitor for alcohol detoxification. Trend hemoglobins as above. Case management consult. All home medications held as being given in other ways/different doses or else he has not been taking them anyway. No pharmacologic VTE prophylaxis given GI bleed. SCD's ordered. Code status ordered as full - patient still not reliable for decision making at this time. Will reassess with sobriety to confirm his wishes.
[2020-05-13] MEDS: Cyclobenzaprine 10 MG Tab PO PRN ×2 (09:35→17:57)
--- NOTE | 2020-05-13 10:26 | CR ---
[id number] RAD/RAD Lumbar Spine 2-3V EXAM: RAD Lumbar Spine 2-3V INDICATION: Back pain after fall. COMPARISON: October 21, 2010 MRI. DISCUSSION: Mild convex left curvature centered at L4-L5 and convex right curvature centered in the lower thoracic spine. Mild retrolisthesis L3-L4. Mild wedging of T12 is similar to the prior study. No definite acute fracture. Moderate disc degeneration L3-L4 and L4-L5 with mild to moderate changes the remaining disc levels. Bilateral facet arthropathy throughout the mid to lower lumbar spine. Arterial calcifications in the aorta and its major branches. IMPRESSION: 1. Moderate lumbar spondylosis. Benton Welsh MD 05/13/20 1024 Thank you for allowing us to participate in the care of your patient.
[2020-05-13] MEDS: Acetaminophen 325 MG Tab PO PRN (16:42)
[2020-05-13] MEDS: Sodium Chloride 0.9% 10 ML Syringe FLUSH PRN (17:58)
[2020-05-13] MEDS: Nicotine 21 MG/24 Hr Patch TRDERM SCH ×2 (20:25→20:26)
[2020-05-14] MEDS: Cyclobenzaprine 10 MG Tab PO PRN ×2 (06:02→15:56)
[2020-05-14] MEDS: Acetaminophen 325 MG Tab PO PRN ×2 (06:03→15:57)
[2020-05-14] MEDS: LORazepam 1 MG Tab PO PRN ×2 (06:04→16:24)
[2020-05-14 07:12] LABS: ANION GAP 16.5 mmol/L (5-15); CHLORIDE,CL 95 mmol/L (98-107); SODIUM,NA 134 mmol/L (136-145)
[2020-05-14] MEDS: Sodium Chloride 0.9% 10 ML Syringe FLUSH PRN ×3 (08:55→20:19)
[2020-05-14] MEDS: Gabapentin 300 MG Cap PO SCH ×2 (08:55→20:19)
[2020-05-14] MEDS: Multivitamins with Iron/Calcium/Folic Acid/Minerals Tab PO SCH (08:55)
[2020-05-14] MEDS: Pantoprazole 40 MG Vial IVPUSH SCH ×2 (08:55→20:18)
[2020-05-14] MEDS: Thiamine 200 MG/2 ML MDV IV SCH ×2 (09:32→15:03)
[2020-05-14] MEDS: Thiamine 500 MG in Sodium Chloride 0.9% 100 ML IV SCH ×3 (09:45→20:20)
--- NOTE | 2020-05-14 10:31 | PCM.PN ---
- General Info Date of Service: 05/14/20 Subjective Update: 55 yo male hospital day #3 admitted with hiccups, alcohol withdrawal, and a GI bleed. Patient states he slept about 6 hours last night. He is feeling much better this morning. His gait is much more steady and he was able to walk to the restroom overnight with standby assistance only. He has continued to have soft bowel movements. He denies any abdominal pain. States the flexeril has helped his back and his hiccups. His withdrawal symptoms are improving. States he is "starving." Started on clear liquids last evening and is tolerating these without any issues. - Review of Systems General: Reports: No Symptoms HEENT: Reports: No Symptoms Pulmonary: Reports: No Symptoms Cardiovascular: Reports: No Symptoms Gastrointestinal: Reports: No Symptoms Genitourinary: Reports: No Symptoms Musculoskeletal: Reports: No Symptoms Skin: Reports: No Symptoms Neurological: Reports: No Symptoms - Patient Data Vitals - Most Recent: Last Vital Signs Temp 35.5 C L 05/14/20 10:00 Pulse 75 05/14/20 10:00 Resp 20 05/14/20 10:00 BP 115/57 L 05/14/20 10:00 Pulse Ox 93 L 05/14/20 10:00 Weight - Most Recent: 63.639 kg I&O - Last 24 Hours: Intake & Output 05/13/20 05/14/20 05/14/20 22:59 06:59 14:59 Intake Total 1051 400 200 Output Total 400 500 Balance 651 -100 200 Lab Results Last 24 Hours: Laboratory Results - last 24 hr 05/13/20 05/13/20 05/14/20 Range/Units 14:00 14:00 06:35 WBC 5.1 4.2 (4.0-10.0) x10^3/uL RBC 3.45 L 3.45 L (4.5-6.0) x10^6/uL Hgb 11.9 L 11.8 L (14.0-18.0) g/dL Hct 34.4 L 34.5 L (40.0-52.0) % MCV 99.7 H 100.0 H (78.0-93.0) fL MCH 34.5 H 34.2 H (26.0-32.0) pg MCHC 34.6 34.2 (32.0-36.0) g/dL RDW Coeff of Hayde 14.1 13.7 (10.0-15.0) % Plt Count 35 L* 29 L* (130-400) x10^3/uL Neut % (Auto) 79.6 82.7 H (50.0-80.0) % Lymph % (Auto) 9.9 L 8.3 L (25.0-50.0) % Addison % (Auto) 9.9 8.1 (2.0-11.0) % Eos % (Auto) 0.2 0.7 (0.0-4.0) % Baso % (Auto) 0.4 0.2 (0.2-1.2) % Sodium (136-145) mmol/L Potassium (3.5-5.1) mmol/L Chloride (98-107) mmol/L Carbon Dioxide (21-32) mmol/L Anion Gap (5-15) mmol/L BUN (7-18) mg/dL Creatinine (0.70-1.30) mg/dL Est Cr Clr Drug Dosing mL/min Estimated GFR (MDRD) Glucose (74-106) mg/dL Lactic Acid 2.0 (0.4-2.0) mmol/L Calcium (8.5-10.1) mg/dL Corrected Calcium (8.5-10.1) mg/dL Total Bilirubin (0.2-1.0) mg/dL AST (15-37) U/L ALT (16-63) U/L Alkaline Phosphatase (46-116) U/L Total Protein (6.4-8.2) g/dL Albumin (3.4-5.0) g/dL Globulin Albumin/Globulin Ratio 05/14/20 05/14/20 Range/Units 06:35 06:35 WBC (4.0-10.0) x10^3/uL RBC (4.5-6.0) x10^6/uL Hgb (14.0-18.0) g/dL Hct (40.0-52.0) % MCV (78.0-93.0) fL MCH (26.0-32.0) pg MCHC (32.0-36.0) g/dL RDW Coeff of Hayde (10.0-15.0) % Plt Count (130-400) x10^3/uL Neut % (Auto) (50.0-80.0) % Lymph % (Auto) (25.0-50.0) % Addison % (Auto) (2.0-11.0) % Eos % (Auto) (0.0-4.0) % Baso % (Auto) (0.2-1.2) % Sodium 134 L (136-145) mmol/L Potassium 3.5 (3.5-5.1) mmol/L Chloride 95 L (98-107) mmol/L Carbon Dioxide 26 (21-32) mmol/L Anion Gap 16.5 H (5-15) mmol/L BUN 5 L (7-18) mg/dL Creatinine 0.6 L (0.70-1.30) mg/dL Est Cr Clr Drug Dosing 118.16 mL/min Estimated GFR (MDRD) > 60 Glucose 108 H (74-106) mg/dL Lactic Acid 1.2 (0.4-2.0) mmol/L Calcium 8.3 L (8.5-10.1) mg/dL Corrected Calcium 9.42 (8.5-10.1) mg/dL Total Bilirubin 1.4 H (0.2-1.0) mg/dL AST 213 H (15-37) U/L ALT 94 H (16-63) U/L Alkaline Phosphatase 163 H (46-116) U/L Total Protein 6.4 (6.4-8.2) g/dL Albumin 2.6 L (3.4-5.0) g/dL Globulin 3.8 Albumin/Globulin Ratio 0.68 Med Orders - Current: Current Medications Acetaminophen (Tylenol) 650 mg PO Q8H PRN PRN Reason: pain/headache Last Admin: 05/14/20 06:03 Dose: 650 mg Documented by: Cyclobenzaprine HCl (Flexeril) 5 mg PO TID PRN PRN Reason: back pain Last Admin: 05/14/20 06:02 Dose: 5 mg Documented by: Gabapentin (Neurontin) 300 mg PO BID [facility] Last Admin: 05/14/20 08:55 Dose: 300 mg Documented by: Thiamine HCl 500 mg/ Sodium (Chloride) 105 mls @ 102.941 mls/hr IV TID [facility] Last Admin: 05/14/20 09:45 Dose: 102.941 mls/hr Documented by: Lorazepam (Ativan) 0 mg PO ASDIRECTED PRN; Protocol PRN Reason: Withdrawal Symptoms Last Admin: 05/14/20 06:04 Dose: 1 mg Documented by: Miscellaneous Information (Remove Patch) 1 ea TRDERM Q24H [facility] Last Admin: 05/13/20 20:25 Dose: 1 ea Documented by: Multivitamins/Minerals (Thera M Plus) 1 tab PO DAILY [facility] Last Admin: 05/14/20 08:55 Dose: 1 tab Documented by: Nicotine (Habitrol) 21 mg TRDERM Q24H [facility] Last Admin: 05/13/20 20:25 Dose: Not Given Documented by: Ondansetron HCl (Zofran) 4 mg IVPUSH Q8H PRN PRN Reason: Nausea Last Admin: 05/13/20 17:57 Dose: 4 mg Documented by: Pantoprazole Sodium (Protonix Iv) 40 mg IVPUSH Q12H [facility] Last Admin: 05/14/20 08:55 Dose: 40 mg Documented by: Sodium Chloride (Saline Flush) 10 ml FLUSH ASDIRECTED PRN PRN Reason: Keep Vein Open Last Admin: 05/14/20 08:55 Dose: 10 ml Documented by: Discontinued Medications Diphenhydramine HCl (Benadryl) 25 mg IVPUSH ONETIME ONE Stop: 05/12/20 17:29 Last Admin: 05/12/20 18:01 Dose: 25 mg Documented by: Diphenhydramine HCl (Benadryl) 12.5 mg IVPUSH ONETIME ONE Stop: 05/12/20 19:00 Last Admin: 05/12/20 19:23 Dose: 12.5 mg Documented by: Lactated Ringer's (Ringers, Lactated) 1,000 mls @ 999 mls/hr IV ONETIME ONE Stop: 05/12/20 18:28 Last Admin: 05/12/20 17:55 Dose: 999 mls/hr Documented by: Multivitamins/Minerals 10 ml/Folic Acid 1 mg/ Thiamine HCl 100 mg/ Sodium Chloride 1,011.2 mls @ 500 mls/hr IV ONETIME ONE Stop: 05/12/20 19:30 Last Admin: 05/12/20 19:15 Dose: 500 mls/hr Documented by: Sodium Chloride (Normal Saline) 1,000 mls @ 100 mls/hr IV ASDIRECTED JEAN Sodium Chloride (Normal Saline) 1,000 mls @ 100 mls/hr IV ASDIRECTED JEAN Sodium Chloride (Normal Saline) 1,000 mls @ 100 mls/hr IV ASDIRECTED ONE Stop: 05/13/20 07:59 Last Admin: 05/13/20 07:30 Dose: 100 mls/hr Documented by: Lorazepam (Ativan) 0 mg PO ASDIRECTED PRN; Protocol PRN Reason: Withdrawal Symptoms Metoclopramide HCl (Reglan) 10 mg IVPUSH ONETIME ONE Stop: 05/12/20 19:00 Last Admin: 05/12/20 19:25 Dose: 10 mg Documented by: Ondansetron HCl (Zofran) 4 mg IV ONETIME ONE Stop: 05/12/20 17:29 Last Admin: 05/12/20 18:01 Dose: 4 mg Documented by: Pantoprazole Sodium (Protonix Iv) 80 mg IVPUSH ONETIME ONE Stop: 05/12/20 17:29 Last Admin: 05/12/20 18:01 Dose: 80 mg Documented by: Thiamine HCl (Vitamin B-1) 500 mg IV TID [facility] Last Admin: 05/14/20 09:32 Dose: Not Given Documented by: - Exam General: Alert, Cooperative, No Acute Distress HEENT: Pupils Equal, Pupils Reactive, Mucous Membr. Moist/[place] Neck: Supple, Trachea Midline, No Thyromegaly. No: Lymphadenopathy Lungs: Clear to Auscultation, Normal Respiratory Effort Cardiovascular: Regular Rate, Regular Rhythm, No Murmurs GI/Abdominal Exam: Normal Bowel Sounds, Soft, Non-Tender, No Organomegaly, No Distention, No Mass Extremities: Normal Inspection, Non-Tender, No Pedal Edema, Normal Capillary Refill Peripheral Pulses: 2+: Radial (L), Radial (R) Skin: Warm, Dry, Intact Neurological: No New Focal Deficit Sepsis Event Note - Evaluation Sepsis Screening Result: No Definite Risk - Focused Exam Vital Signs: Vital Signs Temp Pulse Resp BP Pulse Ox 05/14/20 10:00 35.5 C L 75 20 115/57 L 93 L 05/14/20 05:37 37.0 C 83 16 115/80 97 05/14/20 02:00 36.9 C 84 16 110/68 95 - Problem List & Annotations (1) Alcohol withdrawal syndrome SNOMED Code(s): 804445037 Code(s): F10.239 - ALCOHOL DEPENDENCE WITH WITHDRAWAL, UNSPECIFIED Status: Acute Priority: Medium Current Visit: No Qualifiers: Complication of substance-induced condition: uncomplicated Qualified Code(s): F10.230 - Alcohol dependence with withdrawal, uncomplicated (2) Alcohol abuse SNOMED Code(s): 13008398 Code(s): F10.10 - ALCOHOL ABUSE, UNCOMPLICATED Status: Acute Current Visit: Yes (3) Alcoholic hepatitis SNOMED Code(s): 095138273 Code(s): K70.10 - ALCOHOLIC HEPATITIS WITHOUT ASCITES Status: Chronic Current Visit: Yes Qualifiers: Ascites presence: without ascites Qualified Code(s): K70.10 - Alcoholic hepatitis without ascites (4) Thrombocytopenia SNOMED Code(s): 340872953 Code(s): D69.6 - THROMBOCYTOPENIA, UNSPECIFIED Status: Chronic Current Visit: Yes (5) Melena SNOMED Code(s): 5580748 Code(s): K92.1 - MELENA Status: Acute Current Visit: Yes (6) GERD (gastroesophageal reflux disease) SNOMED Code(s): 996257912 Code(s): K21.9 - GASTRO-ESOPHAGEAL REFLUX DISEASE WITHOUT ESOPHAGITIS Status: Chronic Current Visit: Yes Qualifiers: Esophagitis presence: with esophagitis Esophagitis bleeding: with hemorrhage Qualified Code(s): K21.01 - Gastro-esophageal reflux disease with esophagitis, with bleeding (7) Hiccups SNOMED Code(s): 48898927 Code(s): R06.6 - HICCOUGH Status: Acute Current Visit: Yes (8) Delirium SNOMED Code(s): 1886174 Code(s): R41.0 - DISORIENTATION, UNSPECIFIED Status: Acute Current Visit: Yes (9) Frequent falls SNOMED Code(s): 898303510 Code(s): R29.6 - REPEATED FALLS Status: Acute Current Visit: Yes (10) Back pain SNOMED Code(s): 784395704 Code(s): M54.9 - DORSALGIA, UNSPECIFIED Status: Acute Current Visit: Yes Qualifiers: Back pain location: low back pain Chronicity: acute Back pain laterality: bilateral Sciatica presence: without sciatica Qualified Code(s): M54.5 - Low back pain (11) Nicotine use disorder SNOMED Code(s): 14330885 Code(s): F17.200 - NICOTINE DEPENDENCE, UNSPECIFIED, UNCOMPLICATED Status: Chronic Current Visit: Yes (12) PTSD (post-traumatic stress disorder) SNOMED Code(s): 17230908 Code(s): F43.10 - POST-TRAUMATIC STRESS DISORDER, UNSPECIFIED Status: Chronic Current Visit: Yes - Problem List Review Problem List Initiated/Reviewed/Updated: Yes - My Orders Last 24 Hours: My Active Orders 05/13/20 16:32 Acetaminophen [TylenoL] 650 mg PO Q8H PRN 05/13/20 21:00 Remove Patch 1 ea TRDERM Q24H 05/14/20 Breakfast Advance Diet Instructions [DIET] 05/14/20 09:00 Thiamine [Vitamin B-1] 500 mg Sodium Chloride 0.9% [Normal Saline] 100 ml IV TID 05/14/20 14:00 CBC WITH AUTO DIFF [HEME] Routine 05/15/20 05:11 BASIC METABOLIC PANEL,BMP [CHEM] Routine CBC WITH AUTO DIFF [HEME] Routine LACTIC ACID [CHEM] Routine - Assessment Assessment:: 55 yo male hospital day #3 admitted with hiccups, presumed GI bleed, and alcohol withdrawal. Doing much better today. Labs stable or improved. - Plan Plan:: #1 Alcohol Withdrawal Syndrome #2 Alcohol abuse #3 Alcoholic hepatitis #4 Thrombocytopenia, likely secondary to #2 - Withdrawal symptoms are improving. - Will space CIWA to q3 and possibly to q4 later today if he continues to do well. - PRN lorazepam based on CIWA scores. - Continue gabapentin 300 mg BID. - Lactic acid now normal. - IV fluids discontinued. - Continue PRN zofran, oral MVT, and IV thiamine. Thiamine dose will be decreased to 250 mg IV daily as of tomorrow. - Case management consult ordered. #5 Melena #6 GERD with esophagitis - Presumed to be secondary to gastritis/esophagitis. - Stool occult blood positive. - Just had an EGD in October 2019 so does not need to be repeated unless vital sign instability, drop in hemoglobin. - Hgb stable x 24 hours. Will recheck again at 2 pm today. - Will change Pantoprazole 40 mg BID from IV to PO. - Advance diet as tolerated. - Transfusion threshold <7 or vital sign changes or symptoms. #7 Hiccups - Doing much better. - Scheduled gabapentin as above. - Can continue flexeril PRN as well. #8 Delirium #9 Frequent falls - Improving. - Unclear whether this is secondary to his alcohol use or whether he truly has Wernicke encephalopathy. - Will treat as the latter until clarified. Thiamine level pending. - PT consult ordered for ambulation. #10 Back Pain - Likely muscular based on location and description. - X-ray yesterday did not show any new fractures. - Continue tylenol and flexeril as well as scheduled gabapentin. #11 Nicotine Use Disorder - Patch ordered. #12 PTSD - Home lorazepam held in light of above. Patient will remain on acute today - anticipate d/c home in the next 24-48 hours barring any complications. Trend hemoglobins as above. Case management consult. All home medications held as being given in other ways/different doses or else he has not been taking them anyway. No pharmacologic VTE prophylaxis given GI bleed. SCD's ordered. Code status is full.
[2020-05-14] MEDS: Ondansetron 4 MG/2 ML SDV IVPUSH PRN (12:45)
[2020-05-14] MEDS: Nicotine 21 MG/24 Hr Patch TRDERM SCH (23:06)
[2020-05-15] MEDS ORDERED: LORazepam 2 MG/ML SDV IVPUSH PRN (03:02)
[2020-05-15] MEDS ORDERED: Flumazenil 0.1 MG/ML 5 ML MDV IVPUSH PRN (03:02)
[2020-05-15] MEDS: Cyclobenzaprine 10 MG Tab PO PRN (06:50)
[2020-05-15] MEDS: LORazepam 1 MG Tab PO PRN (06:52)
[2020-05-15] MEDS: Gabapentin 300 MG Cap PO SCH ×2 (07:54→20:08)
[2020-05-15] MEDS: Multivitamins with Iron/Calcium/Folic Acid/Minerals Tab PO SCH (07:54)
[2020-05-15] MEDS: Pantoprazole 40 MG Vial IVPUSH SCH ×2 (07:55→20:08)
[2020-05-15] MEDS: Thiamine 250 MG in Sodium Chloride 0.9% 100 ML IV SCH (07:55)
[2020-05-15 08:01] LABS: CHLORIDE,CL 96 mmol/L (98-107); SODIUM,NA 135 mmol/L (136-145)
[2020-05-15 08:04] LABS: ANION GAP 14.2 mmol/L (5-15)
[2020-05-15] MEDS: Sodium Chloride 0.9% 10 ML Syringe FLUSH PRN (08:08)
[2020-05-15] MEDS: LORazepam 1 MG Tab PO SCH ×2 (14:10→20:12)
[2020-05-15] MEDS: Nicotine 21 MG/24 Hr Patch TRDERM SCH (20:09)
[2020-05-16 08:14] LABS: CHLORIDE,CL 99 mmol/L (98-107); SODIUM,NA 138 mmol/L (136-145)
[2020-05-16 08:16] LABS: ANION GAP 12.1 mmol/L (5-15)
[2020-05-16] MEDS: LORazepam 1 MG Tab PO SCH (08:37)
[2020-05-16] MEDS: Multivitamins with Iron/Calcium/Folic Acid/Minerals Tab PO SCH (08:37)
[2020-05-16] MEDS: Thiamine 250 MG in Sodium Chloride 0.9% 100 ML IV SCH (08:38)
[2020-05-16] MEDS: Gabapentin 300 MG Cap PO SCH (08:38)
[2020-05-16] MEDS: Pantoprazole 40 MG Vial IVPUSH SCH (08:38)
[2020-05-16] MEDS: Sodium Chloride 0.9% 10 ML Syringe FLUSH PRN (08:42)
[2020-05-16] MEDS ORDERED: Potassium Chloride 20 MEQ Tab.ER PO ONE (08:51)
--- NOTE | 2020-05-16 12:31 | DISCH ---
ADMITTING DIAGNOSES: 1. Alcohol withdrawal syndrome. 2. Alcohol abuse. 3. Alcoholic hepatitis. 4. Thrombocytopenia. 5. Melena. 6. Gastroesophageal reflux disease. 7. Hiccups. 8. Delirium. 9. Frequent falls. 10.Nicotine use disorder. 11.Posttraumatic stress disorder. DISCHARGE DIAGNOSES: 1. Alcohol withdrawal syndrome - stable. 2. Alcohol abuse, chronic. 3. Alcoholic hepatitis. 4. Thrombocytopenia, chronic. 5. Melena - resolved. 6. Gastroesophageal reflux disease. 7. Hiccups - resolved. 8. Delirium - resolved. 9. Frequent falls. 10.Nicotine use disorder. 11.Posttraumatic stress disorder. HISTORY OF PRESENT ILLNESS: A 55-year-old male patient with a past medical history of alcohol use disorder, alcoholic hepatitis, nicotine use disorder, PTSD, depression, anal cancer, GERD, who was admitted to the acute care floor at [facility] on 05/12/2020 for alcohol withdrawal syndrome, alcohol abuse, melena, alcoholic hepatitis. The patient had presented to the emergency room at [facility] for hiccups. The patient has been struggling with hiccups on and off for the past 4 months. Most of the time, these are self-limited and resolve without any issue. For the past few days, they have been more persistent to the point that he has not been able to eat anything. Any time he has tried to eat, he ended up aspirating and nearly choking. He has been drinking some fluids. The patient mainly drinks whiskey and beer. Minimal water intake. He has been extremely weak and falling in the past day or so prior to admission. Upon admission, the patient had multiple bruises on his body and did hit his head a few times. The patient did not have any pain to his extremities nor any headache. No focal neurological deficits upon admission. The patient admitted to having black stools for the past 2 weeks. He has only really been taking lorazepam from his home medication list for episodes of "freaking out." The patient has a history of PTSD from events in childhood. The patient does use medical marijuana. BRIEF HOSPITAL COURSE: The patient was started on high dose thiamine. The patient was started on IV fluids. The patient did have significant CIWA scores and required Ativan. The patient's blood alcohol on admission was 0.469. His toxicology screen was otherwise negative. The patient did remain hemodynamically stable. The patient states he was able to sleep through the night without any issues. The patient has not noticed any melena in his stools. The patient has not had any headaches, dizziness, or lightheadedness. The patient was able to ambulate independently in the room. Labs remained stable. However, the patient does have thrombocytopenia, likely secondary to alcohol abuse. The patient did not have any abdominal pain. No nausea or vomiting. The patient did not have any shortness of breath or chest pain. No palpitations or cough. The patient tolerated medications without any side effects. REVIEW OF SYSTEMS: All other systems are negative. DISCHARGE PHYSICAL EXAMINATION: Vital Signs: Temperature 98.4, pulse 83, blood pressure 98/71, respiratory rate 18, oxygen saturation 96% on room air. Skin: Scattered bruises throughout. Skin intact. Skin is warm and dry. Respiratory: Lungs sounds diminished, otherwise clear. Cardiovascular: Regular rate and rhythm, no murmur. Abdomen: Soft. Nontender. Bowel sounds are normoactive x4. Neurological: The patient is alert. Patient is somewhat restless and impatient. Otherwise, patient is cooperative. No new focal neurological deficits. LABORATORY WORK: 1. CBC: White blood cell count 4.0, hemoglobin 13.0, hematocrit 38.1, platelets 47,000. 2. CMP: Sodium 138, potassium 3.1, chloride 99, CO2 of 30, anion gap 12.1, BUN 17, creatinine 0.6, GFR greater than 60. Glucose 120. Calcium 10.26, total bilirubin 1.3, AST 264, ALT 156, alkaline phosphatase 178, total protein 7.1, albumin 2.8. DISCHARGE MEDICATIONS: 1. Acetaminophen 650 mg 1 tablet p.o. every 8 hours as needed. 2. Cyclobenzaprine 10 mg 1 tablet every 8 hours as needed. 3. Gabapentin 300 mg 1 tablet p.o. twice daily. 4. Lorazepam 1 mg p.o. twice daily. 5. Multivitamin with iron 1 tablet p.o. daily. 6. Protonix 40 mg 1 tablet p.o. daily. 7. Thiamine 100 mg 1 tablet p.o. daily. 8. Folic acid 1 mg 1 tablet p.o. daily. DIET: Heart healthy. ACTIVITY: As tolerated. CONSULTS: Case Management. ASSESSMENT: 1. Alcohol withdrawal syndrome. 2. Alcohol abuse. 3. Alcoholic hepatitis. 4. Thrombocytopenia. 5. Melena - resolved. 6. Gastroesophageal reflux disease with esophagitis. 7. Hiccups - resolved. 8. Delirium - resolved. 9. Frequent falls. 10.Chronic back pain. 11.Nicotine use disorder. 12.Posttraumatic stress disorder. PLAN: The patient will be discharged home today. The patient will continue on multivitamin, folic acid, thiamine. One prescription for thiamine 100 mg daily. Second prescription for Flexeril 10 mg 1 tablet every 8 hours as needed. No refills on either prescription. Long discussion was held with the patient regarding abstinence from alcohol and drugs. The patient declined any services for his addiction. Strongly encouraged the patient to schedule an appointment with Dr. Eda Brothers in the next 2 days for a hospital followup. I stressed it was imperative that he follow up. The patient was discharged in hemodynamically stable condition. The patient was very adamant to go home as he was worried about his household. Still waiting on thiamine level as of the date of this dictation. Results will be forwarded to Dr. Eda Brothers when available. TB: 05/16/2020 10:56:28 MODL: 05/16/2020 12:22:21 /[id number] MTDD
--- NOTE | 2020-05-17 07:22 | PN ---
Progress Note for KHADRA GIL Date: 05/15/2020 Room #: [facility] CHIEF COMPLAINT: 1. Alcohol withdrawal. 2. GI bleed. 3. Hiccups. SUBJECTIVE: Hospital day #4 for a 55-year-old male patient who was admitted with the above diagnoses. The patient is adamant about being discharged home today. The patient states that he knows he is feeling in good health. The patient denies any need for CD or AA. The patient states he has not had any headaches. The patient's CIWA has been 1 to 2. The patient denies any chest pain or palpitations. The patient denies any shortness of breath or cough. The patient states he does have craving. The patient states "I want to be discharged so I can go home and drink." The patient has not had any diarrhea. The patient was started on fluids orally yesterday and has been tolerating without any problems. Denies any problems with urination. The patient has not had any nausea or vomiting overnight. REVIEW OF SYSTEMS: Constitutional: Negative. Skin: Negative. Respiratory: Negative. Cardiovascular: Negative. Abdomen: Negative. Neurologic: Negative. PHYSICAL EXAMINATION: Vital Signs: Temperature 98.1, pulse 97, blood pressure 112/83, respiratory rate 16, oxygen saturation 93% on room air. General: The patient is alert. The patient is cooperative. The patient does not appear to be having any acute withdrawal symptoms. Respiratory: Lungs are diminished throughout, otherwise clear. Cardiovascular: Regular rate and rhythm, no murmurs. Abdomen: Bowel sounds are normoactive x4. Nontender. Soft. Skin: Intact, warm, and dry. Neurological: The patient is slightly agitated, demanding to be discharged to go home. The patient is oriented to person, place, and time. No focal neurological deficits. LABORATORY STUDIES: CBC; white blood cell count 4.0, hemoglobin 12.3, hematocrit 35.9, platelets are 34,000. BMP; sodium 135, potassium 3.2, chloride 96, CO2 of 28, anion gap 14.2, BUN 8, creatinine 0.5, GFR greater than 60, glucose 116, calcium 8.6. Lactic acid 1.2. ASSESSMENT: 1. Acute alcohol withdrawal syndrome. 2. Alcohol abuse. 3. Alcoholic hepatitis. 4. Thrombocytopenia. 5. Melena. 6. Gastroesophageal reflux disease. 7. Hiccups. 8. Delirium. 9. Frequent falls. 10.Back pain. 11.Nicotine use disorder. 12.Post-traumatic stress disorder. PLAN: A 55-year-old male patient on hospital day #4, admitted with hiccups, presumed GI bleed, and alcohol withdrawal. Doing better today, however, agitated secondary to cravings for alcohol. The patient's CIWA scores have been good. The patient does take Ativan twice daily at home which we will start scheduling today. I did discuss AA and CD treatment with the patient. He declined. The patient is very concerned about going home. I talked to the patient about awaiting additional laboratory studies. The patient has been on high-dose thiamine and we are awaiting a thiamine result. The patient is a full code. The patient does not wish to be transferred to a higher level of care should the need arise. If the patient's thiamine level comes back normal, may consider discharge home tomorrow. We will recheck laboratory work tomorrow morning. His withdrawal symptoms seem to be stable. TB: 05/15/2020 12:52:49 MODL: 05/15/2020 14:31:40 /[id number]
== END 2020-05-16 13:05 | disposition home or self-care (01) | DRG 897 ==
LOC: VM.ED 17:14 → EEVIPCON 19:14 → VM.MS 19:14
PROVIDERS: ADMIT Family Medicine; ATTEND Family Medicine
DX: F10.920 Alcohol use, unspecified with intoxication, uncomplicated (principal); R53.1 Weakness; K21.01 Gastro-esophageal reflux disease with esophagitis, with bleeding; K92.2 Gastrointestinal hemorrhage, unspecified; F10.239 Alcohol dependence with withdrawal, unspecified; E46 Unspecified protein-calorie malnutrition; Z85.89 Personal history of malignant neoplasm of other organs and systems; Z85.048 Personal history of other malignant neoplasm of rectum, rectosigmoid junction, and anus; Z92.21 Personal history of antineoplastic chemotherapy; K86.0 Alcohol-induced chronic pancreatitis; F10.229 Alcohol dependence with intoxication, unspecified; K92.1 Melena; F33.9 Major depressive disorder, recurrent, unspecified; K70.10 Alcoholic hepatitis without ascites; R26.81 Unsteadiness on feet; D69.6 Thrombocytopenia, unspecified; Z91.14 Patient's other noncompliance with medication regimen; F20.9 Schizophrenia, unspecified; W19.XXXA Unspecified fall, initial encounter; F43.10 Post-traumatic stress disorder, unspecified; R06.6 Hiccough; R41.0 Disorientation, unspecified; F32.9 Major depressive disorder, single episode, unspecified; Y90.8 Blood alcohol level of 240 mg/100 ml or more; G89.29 Other chronic pain; M54.9 Dorsalgia, unspecified; K21.00 Gastro-esophageal reflux disease with esophagitis, without bleeding; F41.9 Anxiety disorder, unspecified; F17.210 Nicotine dependence, cigarettes, uncomplicated; Z79.899 Other long term (current) drug therapy; Z88.0 Allergy status to penicillin; Z20.822 Contact with and (suspected) exposure to COVID-19
CPT/HCPCS: 36415; 72100; 80048; 80053; 80305-QW; 80307; 81001; 82140; 82274; 82550; 82977; 83605; 83690; 83735; 84425; 85025; 85610; 85730; 86140; 93005; 96365; 96375; 96376; 97161-GP; 99284; 99285-25; A9270-GY; C9113; J1200; J2405; J2765; J3411; J7030; J7120; U0002

== ENCOUNTER 2021-01-14 10:28 | Inpatient (IN) | payer MEDICARE ==
[2021-01-14] MEDS ORDERED: Ondansetron 4 MG/2 ML SDV IVPUSH PRN (11:26)
[2021-01-14] MEDS ORDERED: Lactulose Soln 10 GM/15 ML 30 ML UD Cup PO PRN (11:26)
[2021-01-14] MEDS ORDERED: Prochlorperazine 5 MG Tab PO SCH (12:00)
[2021-01-14] MEDS: LORazepam 1 MG Tab PO SCH ×2 (13:09→20:17)
[2021-01-14] MEDS: Pantoprazole 40 MG Tab.CR PO SCH (16:27)
[2021-01-14] MEDS: Prochlorperazine 5 MG Tab PO SCH (20:16)
[2021-01-14] MEDS: Zolpidem 5 MG Tab PO SCH (20:16)
[2021-01-14] MEDS: Levofloxacin 500 MG Tab PO SCH (20:17)
[2021-01-14] MEDS: Thiamine 100 MG Tab PO SCH (20:18)
[2021-01-14] MEDS: Sodium Chloride 0.9% 10 ML Syringe FLUSH SCH (20:18)
[2021-01-14] MEDS: HYDROmorphone 2 MG Tab PO PRN (23:57)
[2021-01-14] MEDS: LORazepam 1 MG Tab PO PRN (23:57)
[2021-01-15] MEDS: HYDROmorphone 2 MG Tab PO PRN ×2 (04:15→18:23)
[2021-01-15] MEDS: LORazepam 1 MG Tab PO PRN (05:55)
[2021-01-15] MEDS: Pantoprazole 40 MG Tab.CR PO SCH ×2 (06:50→18:23)
[2021-01-15] MEDS: Cyanocobalamin (Vitamin B12) 250 MCG Tab PO SCH (08:05)
[2021-01-15] MEDS: Magnesium Oxide 400 MG Tab PO SCH (08:05)
[2021-01-15] MEDS: Prochlorperazine 5 MG Tab PO SCH ×3 (08:05→20:35)
[2021-01-15] MEDS: LORazepam 1 MG Tab PO SCH ×3 (08:06→20:36)
[2021-01-15] MEDS: Folic Acid 1 MG Tab PO SCH (08:06)
[2021-01-15] MEDS: Multivitamins with Iron/Calcium/Folic Acid/Minerals Tab PO SCH (08:07)
[2021-01-15] MEDS: Spironolactone 25 MG Tab PO SCH (08:07)
[2021-01-15] MEDS: Sodium Chloride 0.9% 10 ML Syringe FLUSH SCH ×2 (08:07→20:44)
[2021-01-15] MEDS: Thiamine 100 MG Tab PO SCH (20:34)
[2021-01-15] MEDS: Levofloxacin 500 MG Tab PO SCH (20:35)
[2021-01-15] MEDS: Zolpidem 5 MG Tab PO SCH (20:36)
[2021-01-16] MEDS: LORazepam 1 MG Tab PO PRN (00:30)
[2021-01-16] MEDS: Pantoprazole 40 MG Tab.CR PO SCH ×2 (06:14→18:56)
[2021-01-16] MEDS: HYDROmorphone 2 MG Tab PO PRN ×3 (06:14→13:32)
[2021-01-16] MEDS: Prochlorperazine 5 MG Tab PO SCH ×3 (09:24→20:47)
[2021-01-16] MEDS: Magnesium Oxide 400 MG Tab PO SCH (09:25)
[2021-01-16] MEDS: Cyanocobalamin (Vitamin B12) 250 MCG Tab PO SCH (09:25)
[2021-01-16] MEDS: LORazepam 1 MG Tab PO SCH ×4 (09:25→20:46)
[2021-01-16] MEDS: Multivitamins with Iron/Calcium/Folic Acid/Minerals Tab PO SCH (09:26)
[2021-01-16] MEDS: Spironolactone 25 MG Tab PO SCH (09:27)
[2021-01-16] MEDS: Folic Acid 1 MG Tab PO SCH (09:27)
[2021-01-16] MEDS: Sodium Chloride 0.9% 10 ML Syringe FLUSH SCH ×2 (10:06→20:47)
[2021-01-16] MEDS: Levofloxacin 500 MG Tab PO SCH (20:47)
[2021-01-16] MEDS: Thiamine 100 MG Tab PO SCH (20:47)
[2021-01-16] MEDS: Zolpidem 5 MG Tab PO SCH (20:47)
[2021-01-17] MEDS: HYDROmorphone 2 MG Tab PO PRN ×3 (02:01→15:31)
[2021-01-17] MEDS: LORazepam 1 MG Tab PO PRN ×2 (03:58→15:32)
[2021-01-17] MEDS: Pantoprazole 40 MG Tab.CR PO SCH ×2 (06:18→16:55)
[2021-01-17 07:54] LABS: CHLORIDE,CL 100 mmol/L (98-107); SODIUM,NA 136 mmol/L (136-145)
[2021-01-17 07:55] LABS: ANION GAP 8.3 mmol/L (5-15)
[2021-01-17] MEDS: Prochlorperazine 5 MG Tab PO SCH ×3 (08:42→19:55)
[2021-01-17] MEDS: Multivitamins with Iron/Calcium/Folic Acid/Minerals Tab PO SCH (08:42)
[2021-01-17] MEDS: Cyanocobalamin (Vitamin B12) 250 MCG Tab PO SCH (08:43)
[2021-01-17] MEDS: Sodium Chloride 0.9% 10 ML Syringe FLUSH SCH ×2 (08:43→19:56)
[2021-01-17] MEDS: Folic Acid 1 MG Tab PO SCH (08:43)
[2021-01-17] MEDS: LORazepam 1 MG Tab PO SCH ×3 (08:43→19:55)
[2021-01-17] MEDS: Spironolactone 25 MG Tab PO SCH (08:43)
[2021-01-17] MEDS: Magnesium Oxide 400 MG Tab PO SCH (08:43)
[2021-01-17] MEDS ORDERED: Potassium Chloride 10 MEQ Tab.ER PO ONE (08:47)
[2021-01-17] MEDS: Thiamine 500 MG in Sodium Chloride 0.9% 100 ML IV SCH ×2 (12:29→19:55)
[2021-01-17] MEDS ORDERED: Sodium Chloride 0.9% 10 ML Syringe FLUSH PRN (12:32)
--- NOTE | 2021-01-17 18:26 | PN ---
Progress Note for KHADRA GIL Date: 01/17/2021 Room #: VM.218 SUBJECTIVE: This is a 55-year-old, on swing bed after an acute stay for alcoholic hepatitis. He fortunately had a mild case. He did undergo paracentesis that was negative for infection. He has also been receiving IV thiamine while under acute care and pharmacy is recommending this to be continued as he is quite off balance and has longstanding alcoholism. The patient states he does still have a little bit of abdominal pain. He has a little bit of drainage still from that right lower quadrant paracentesis entry. He has a little bit a redness surrounding the tape area, but not right at the wound. He has been afebrile. He is coughing less. He has completed 5 days of Levaquin for pneumonia. He is still not eating much, about 50% of meals. He is having bowel movements. He is making lots of urine. He has been on Lasix. He was quite sleepy over the weekend. He did receive 2 mg of p.r.n. Ativan just once daily and had been decreased from a 2 to 1.5 t.i.d. He is normally on 1 mg t.i.d. at home. He has only been receiving about 2 oral p.r.n. Dilaudid per day. He has declined to take lactulose. He is asking when he can get home. He says it is costing him too much to stay here. He does not seem very interested in alcohol treatment. He says he needs those things, meaning alcohol and cigarettes. OBJECTIVE: Vital Signs: His temperature is 96.9, pulse 101, blood pressure 120/84, respiratory rate 22, O2 of 93% on room air when he was on oxygen last week. General: He is in no acute distress. He is no longer having tremors. Heart: Regular rate and rhythm. S1, S2 without murmur. Lungs: Sounds are clear to auscultation bilaterally without crackles or wheezes. Abdomen: Has positive bowel sounds. It is soft. Mild tenderness in the right suprapubic to lower quadrant. No rebound. No guarding. Mild ascites, much improved. Extremities: Warm and dry. No edema. Skin: He does have an abrasion over the right elbow. It was a scab, it has opened up. He also has some rosacea changes to his face. LABORATORY DATA: White count 6.2, hemoglobin 12.8, platelets 49. Sodium 136, potassium 3.3, chloride 100, bicarb 31, BUN 7, creatinine 0.6, glucose 104, calcium 7.8, bilirubin 3.6, AST 122, ALT 40, alkaline phosphatase 168, albumin 1.7. ASSESSMENT AND PLAN: 1. Alcoholic hepatitis, mild. The patient is making a good recovery. We will continue supportive cares and avoiding alcohol. 2. Wernicke's encephalopathy. We will continue with IV thiamine and oral. 3. Hypokalemia. I will give him a dose of oral potassium. I will also increase the Aldactone to 50 mg daily. 4. Pneumonia. He completed a 5-day course of Levaquin. 5. Ascites due to cirrhosis. We will continue with diuretics. His kidney function is excellent. We will repeat lab work in 2 to 3 days. 6. Alcohol withdrawals, resolved. He is no longer withdrawing from alcohol, but he does have significant dependence. We are trying to have him evaluated for treatment. 7. Hypomagnesemia and hypokalemia, replacing. 8. History of anal cancer, squamous. 9. Severe thrombocytopenia. He is not having any current bleeding. 10.Severe malnutrition. 11.Weakness and deconditioning. He is working with therapies. The patient actually wants to just go home and be left alone. He will crawl around on the floor he says. His ex- is his alternative decision maker and she is shaking her head about him going home as she does realize that he is not a candidate to be at home independently. 12.For deep vein thrombosis prophylaxis, SCDs have been ordered. 13.Hepatitis panel has also been sent off. MKA: 01/17/2021 12:54:47 MODL: 01/17/2021 13:18:31 /[id number]
[2021-01-17] MEDS: Thiamine 100 MG Tab PO SCH (19:55)
[2021-01-17] MEDS: Zolpidem 5 MG Tab PO SCH (19:56)
[2021-01-18] MEDS: Pantoprazole 40 MG Tab.CR PO SCH ×2 (06:23→16:38)
[2021-01-18] MEDS: Prochlorperazine 5 MG Tab PO SCH ×3 (07:27→20:18)
[2021-01-18] MEDS: Ondansetron 4 MG Tab.DIS PO PRN (07:27)
[2021-01-18] MEDS: Spironolactone 25 MG Tab PO SCH (07:28)
[2021-01-18] MEDS: Folic Acid 1 MG Tab PO SCH (07:28)
[2021-01-18] MEDS: Multivitamins with Iron/Calcium/Folic Acid/Minerals Tab PO SCH (07:28)
[2021-01-18] MEDS: LORazepam 1 MG Tab PO SCH ×3 (07:28→20:19)
[2021-01-18] MEDS: Magnesium Oxide 400 MG Tab PO SCH (07:28)
[2021-01-18] MEDS: Sodium Chloride 0.9% 10 ML Syringe IV PRN ×2 (07:29→12:14)
[2021-01-18] MEDS: Thiamine 500 MG in Sodium Chloride 0.9% 100 ML IV SCH ×3 (07:31→20:06)
[2021-01-18] MEDS: Sodium Chloride 0.9% 10 ML Syringe FLUSH SCH ×2 (07:32→20:19)
[2021-01-18] MEDS: Cyanocobalamin (Vitamin B12) 250 MCG Tab PO SCH (07:33)
[2021-01-18] MEDS: HYDROmorphone 2 MG Tab PO PRN ×2 (07:37→22:54)
--- NOTE | 2021-01-18 16:28 | PCM.SN.2 ---
- Free Text/Narrative Note: Patient being more rude with staff overnight. Wanting to return home. Did not round on him today as on swing bed but reviewed things with nursing and we will add prjose ojeda to prjose ataida. He will also be assessed by [facility] and get a cognitive eval while here. Patient is working with PT but too weak to be at home along and will be for quite sometime. I also have considerable concerns about the likelyhood of alcohol related dementia that the patient is not competent to make his own healthcare decisions. Time Documentation
[2021-01-18] MEDS: LORazepam 1 MG Tab PO PRN ×2 (16:39→22:54)
[2021-01-18] MEDS: Thiamine 100 MG Tab PO SCH (20:18)
[2021-01-18] MEDS: Zolpidem 5 MG Tab PO SCH (22:11)
[2021-01-19] MEDS: Pantoprazole 40 MG Tab.CR PO SCH ×2 (06:36→17:26)
[2021-01-19] MEDS: HYDROmorphone 2 MG Tab PO PRN (06:36)
[2021-01-19] MEDS: Thiamine 500 MG in Sodium Chloride 0.9% 100 ML IV SCH ×3 (07:25→19:54)
[2021-01-19] MEDS: Prochlorperazine 5 MG Tab PO SCH ×3 (08:52→19:55)
[2021-01-19] MEDS: Spironolactone 25 MG Tab PO SCH (08:52)
[2021-01-19] MEDS: Multivitamins with Iron/Calcium/Folic Acid/Minerals Tab PO SCH (08:52)
[2021-01-19] MEDS: Magnesium Oxide 400 MG Tab PO SCH ×2 (08:52→19:54)
[2021-01-19] MEDS: Folic Acid 1 MG Tab PO SCH (08:52)
[2021-01-19] MEDS: Cyanocobalamin (Vitamin B12) 250 MCG Tab PO SCH (08:52)
[2021-01-19] MEDS: Sodium Chloride 0.9% 10 ML Syringe FLUSH SCH ×2 (08:53→19:57)
[2021-01-19] MEDS: LORazepam 1 MG Tab PO SCH ×4 (08:53→19:54)
[2021-01-19] MEDS: LORazepam 1 MG Tab PO PRN ×2 (10:59→23:45)
[2021-01-19] MEDS ORDERED: Thiamine 200 MG/2 ML MDV ONE (11:57)
[2021-01-19] MEDS: QUEtiapine 25 MG Tab PO PRN ×2 (13:39→22:25)
--- NOTE | 2021-01-19 15:18 | PN ---
Progress Note for KHADRA GIL Date: 01/19/2021 Room #: VM.218 SUBJECTIVE: This is a 55-year-old, on swing bed, recovering after acute stay for abdominal pain, alcoholic hepatitis, cirrhosis, and ascites. The patient is still sleeping when I arrive in the room this morning. His POA is at the bedside, and she states he does take a while to wake up. I did explain to him that just wanted to give him an update about getting a memory test today and then having Chemical Dependency talk to him. He did say he sort of just passed out last night, but nursing did not say that he fell. When I told him I was going to check with nursing, he assured me that that they might be lying. The patient did not receive any Seroquel yet, but did receive p.r.n. Dilaudid, looks like early this morning, but that has been the only dose in 24 hours and had been taking up to 2 a day before, and also had received his 2 mg of Ativan last night at 11 p.m., that was the only dose yesterday other than his 1 mg t.i.d., which he was previously on at home. The patient also takes Ambien at bedtime. He has been afebrile. He has been treated for pneumonia. He is not coughing. He has been able to get off oxygen. It is reported that he has been working with therapies. He started eating some in his diet more consistently now, 50% of his meals. He has not had a bowel movement though since the . He has been refusing his lactulose, so it was p.r.n. He had multiple falls before he came in. He did not have any head CT. He has not had any headaches. OBJECTIVE: Vital Signs: His temperature is 98.8, pulse 102, blood pressure 111/77, respiratory rate 18, and O2 of 96% on room air. General: He is in no acute distress. Heart: Regular rate and rhythm. S1 and S2, without murmur. Lungs: Lung sounds are clear to auscultation bilaterally without crackles or wheezes. Abdomen: Some mild distention, but definitely improved since admit. Extremities: Warm and dry. No edema. Mental Status: We did not go through mental status questions as he was going to be getting his memory test today. LABORATORY DATA: Lab work is due to be done tomorrow. ASSESSMENT: 1. Sedation and confusion today. The patient very likely has underlying Wernicke's. He is on the IV and oral thiamine. We will get the head CT due to the previous falls. We will get an ammonia level and check his lab work today. If needed, we will start him on lactulose. 2. Alcohol dependence. He will be meeting with [facility]. He is not interested in any treatments currently, but we would like to at least have him go through the options. 3. Alcoholic hepatitis, mild. He has made a good recovery. 4. Ascites. Diuresis has been working. 5. Pneumonia, treated. 6. Alcohol withdrawals, resolved. 7. Hypomagnesemia and hypokalemia. He has had them replaced. We will continue monitoring. 8. History of squamous cell anal cancer. It does not appear to be active. He has had no rectal bleeding. 9. Severe thrombocytopenia. 10.Severe malnutrition. 11.Weakness and deconditioning. He is working with therapies until the time when he is strong enough to go home, and his POA says that she will either provide care or has other caregivers arranged. PLAN: The patient will remain on swing bed cares until he is physically stable enough to return home with the supervision of his POA as he is not interested in going to any inpatient alcohol treatments. Neurontin added to help with cravings It will also help pain since I d/c the dilaudid that he got for abdominal pain. MKA: 01/19/2021 14:50:38 MODL: 01/19/2021 15:08:00 /[id number] RUFINA
[2021-01-19 15:22] LABS: ANION GAP 12.7 mmol/L (5-15); CHLORIDE,CL 100 mmol/L (98-107); SODIUM,NA 136 mmol/L (136-145)
--- NOTE | 2021-01-19 15:28 | CT ---
[id number] CT/CT Head WO IV EXAM: CT Head WO IV CLINICAL DATA: TRAUMA COMPARISON: No previous similar exam is available for comparison. FINDINGS: There is no mass or mass effect. There is no hemorrhage or hydrocephalus. There are no extra-axial fluid collections. There are no sites of abnormal attenuation. IMPRESSION: NO PLAIN CT EVIDENCE OF ACUTE INTRACRANIAL PROCESS. Willian Garcia MD 01/19/21 [id number] Thank you for allowing us to participate in the care of your patient.
[2021-01-19] MEDS: Thiamine 100 MG Tab PO SCH (19:54)
[2021-01-19] MEDS ORDERED: Gabapentin 100 MG Cap PO SCH (20:00)
[2021-01-19] MEDS: Zolpidem 5 MG Tab PO SCH (20:01)
[2021-01-20] MEDS: Pantoprazole 40 MG Tab.CR PO SCH ×2 (06:05→17:36)
[2021-01-20] MEDS: LORazepam 1 MG Tab PO PRN ×3 (06:13→16:40)
[2021-01-20] MEDS: LORazepam 1 MG Tab PO SCH ×2 (09:39→12:38)
[2021-01-20] MEDS: Magnesium Oxide 400 MG Tab PO SCH ×2 (09:40→20:13)
[2021-01-20] MEDS: Spironolactone 25 MG Tab PO SCH (09:40)
[2021-01-20] MEDS: Cyanocobalamin (Vitamin B12) 250 MCG Tab PO SCH (09:40)
[2021-01-20] MEDS: Prochlorperazine 5 MG Tab PO SCH ×2 (09:41→20:13)
[2021-01-20] MEDS: Multivitamins with Iron/Calcium/Folic Acid/Minerals Tab PO SCH (09:41)
[2021-01-20] MEDS: Folic Acid 1 MG Tab PO SCH (09:41)
[2021-01-20] MEDS: Thiamine 500 MG in Sodium Chloride 0.9% 100 ML IV SCH ×3 (09:42→20:16)
[2021-01-20] MEDS: Sodium Chloride 0.9% 10 ML Syringe FLUSH SCH ×2 (10:01→20:18)
[2021-01-20] MEDS: Naltrexone 50 MG Tab PO SCH (14:23)
--- NOTE | 2021-01-20 14:32 | PCM.SN.2 ---
- Free Text/Narrative Note: Patient POA wondering about Librium but he has already withdrawn. Will change ativan to Klonopin since it is shorter acting. Discussed with pharmacy. Not opposed to trying Librium for anxiety but he was already on ativan at home so that is why we used that. Reports said night nurse was in his room 43 x and he finally had some stools and they had some blood in it. Not unexpected with his hx of cancer and he is due to see the colorectal surgeon this fall. Platelets are actually improving will recheck lab Sunday. Also allowed NA beer BID to help with cravings and have Neurontin now on board and Naltrexone since he is off pain pills. Did abuse pain pills also at home per reports. Time Documentation
[2021-01-20] MEDS: QUEtiapine 25 MG Tab PO PRN (15:24)
[2021-01-20] MEDS ORDERED: Flumazenil 0.1 MG/ML 5 ML MDV IVPUSH PRN (16:43)
[2021-01-20] MEDS: Gabapentin 100 MG Cap PO SCH ×2 (17:37→20:13)
[2021-01-20] MEDS ORDERED: Thiamine 200 MG/2 ML MDV ONE (19:36)
[2021-01-20] MEDS: Zolpidem 5 MG Tab PO SCH (20:12)
[2021-01-20] MEDS: Thiamine 100 MG Tab PO SCH (20:12)
[2021-01-20] MEDS: ClonazePAM 0.5 MG Tab PO SCH (20:12)
[2021-01-20] MEDS: Acetaminophen 325 MG Tab PO PRN (20:14)
[2021-01-21] MEDS: LORazepam 1 MG Tab PO PRN ×2 (03:49→23:09)
[2021-01-21] MEDS: QUEtiapine 25 MG Tab PO PRN ×3 (03:49→14:32)
[2021-01-21] MEDS: Pantoprazole 40 MG Tab.CR PO SCH ×2 (06:46→16:19)
[2021-01-21] MEDS: Thiamine 500 MG in Sodium Chloride 0.9% 100 ML IV SCH ×3 (07:53→19:41)
[2021-01-21] MEDS: ClonazePAM 0.5 MG Tab PO SCH ×3 (09:04→19:39)
[2021-01-21] MEDS: Magnesium Oxide 400 MG Tab PO SCH ×2 (09:05→19:39)
[2021-01-21] MEDS: Prochlorperazine 5 MG Tab PO SCH ×2 (09:05→19:39)
[2021-01-21] MEDS: Cyanocobalamin (Vitamin B12) 250 MCG Tab PO SCH (09:05)
[2021-01-21] MEDS: Spironolactone 25 MG Tab PO SCH (09:05)
[2021-01-21] MEDS: Folic Acid 1 MG Tab PO SCH (09:06)
[2021-01-21] MEDS: Multivitamins with Iron/Calcium/Folic Acid/Minerals Tab PO SCH (09:07)
[2021-01-21] MEDS: Naltrexone 50 MG Tab PO SCH (09:07)
[2021-01-21] MEDS: Sodium Chloride 0.9% 10 ML Syringe FLUSH SCH ×2 (09:08→19:40)
[2021-01-21] MEDS: Acetaminophen 325 MG Tab PO PRN (16:18)
[2021-01-21] MEDS: Gabapentin 100 MG Cap PO SCH ×2 (17:19→19:39)
[2021-01-21] MEDS: LORazepam 2 MG/ML SDV IVPUSH PRN (17:20)
[2021-01-21] MEDS: Sodium Chloride 0.9% 10 ML Syringe IV PRN (17:22)
[2021-01-21] MEDS: Thiamine 100 MG Tab PO SCH (19:39)
[2021-01-21] MEDS: Zolpidem 5 MG Tab PO SCH (19:40)
[2021-01-22] MEDS: LORazepam 2 MG/ML SDV IVPUSH PRN (05:20)
[2021-01-22] MEDS: Pantoprazole 40 MG Tab.CR PO SCH ×2 (06:05→17:20)
[2021-01-22] MEDS: Prochlorperazine 5 MG Tab PO SCH ×2 (08:18→19:17)
[2021-01-22] MEDS: Multivitamins with Iron/Calcium/Folic Acid/Minerals Tab PO SCH (08:18)
[2021-01-22] MEDS: Cyanocobalamin (Vitamin B12) 250 MCG Tab PO SCH (08:19)
[2021-01-22] MEDS: Naltrexone 50 MG Tab PO SCH (08:19)
[2021-01-22] MEDS: Spironolactone 25 MG Tab PO SCH (08:20)
[2021-01-22] MEDS: Magnesium Oxide 400 MG Tab PO SCH ×2 (08:20→19:19)
[2021-01-22] MEDS: Folic Acid 1 MG Tab PO SCH (08:20)
[2021-01-22] MEDS: ClonazePAM 0.5 MG Tab PO SCH ×3 (08:20→19:18)
[2021-01-22] MEDS: Sodium Chloride 0.9% 10 ML Syringe FLUSH SCH ×2 (08:21→19:19)
[2021-01-22] MEDS: Thiamine 500 MG in Sodium Chloride 0.9% 100 ML IV SCH ×3 (08:25→19:17)
[2021-01-22] MEDS: Nicotine 14 MG/24 Hr Patch TRDERM PRN (08:44)
[2021-01-22] MEDS: Acetaminophen 325 MG Tab PO PRN ×2 (08:49→19:18)
[2021-01-22] MEDS: LORazepam 1 MG Tab PO PRN ×3 (10:16→21:00)
[2021-01-22] MEDS: Ondansetron 4 MG Tab.DIS PO PRN (10:16)
[2021-01-22] MEDS: Gabapentin 100 MG Cap PO SCH ×2 (17:20→19:19)
[2021-01-22] MEDS: Zolpidem 5 MG Tab PO SCH (19:17)
[2021-01-22] MEDS: Thiamine 100 MG Tab PO SCH (19:18)
[2021-01-23] MEDS: QUEtiapine 25 MG Tab PO PRN ×3 (02:51→15:21)
[2021-01-23] MEDS: LORazepam 1 MG Tab PO PRN ×4 (02:51→17:36)
[2021-01-23] MEDS: Pantoprazole 40 MG Tab.CR PO SCH ×2 (06:05→17:36)
[2021-01-23] MEDS: Prochlorperazine 5 MG Tab PO SCH ×2 (07:43→19:36)
[2021-01-23] MEDS: Multivitamins with Iron/Calcium/Folic Acid/Minerals Tab PO SCH (07:44)
[2021-01-23] MEDS: ClonazePAM 0.5 MG Tab PO SCH ×3 (07:44→19:37)
[2021-01-23] MEDS: Magnesium Oxide 400 MG Tab PO SCH ×2 (07:44→19:37)
[2021-01-23] MEDS: Acetaminophen 325 MG Tab PO PRN ×3 (07:44→17:35)
[2021-01-23] MEDS: Naltrexone 50 MG Tab PO SCH (07:45)
[2021-01-23] MEDS: Cyanocobalamin (Vitamin B12) 250 MCG Tab PO SCH (07:45)
[2021-01-23] MEDS: Folic Acid 1 MG Tab PO SCH (07:45)
[2021-01-23] MEDS: Spironolactone 25 MG Tab PO SCH (07:45)
[2021-01-23] MEDS: Nicotine 14 MG/24 Hr Patch TRDERM PRN (07:46)
[2021-01-23] MEDS: Thiamine 500 MG in Sodium Chloride 0.9% 100 ML IV SCH ×3 (07:55→19:35)
[2021-01-23] MEDS: Sodium Chloride 0.9% 10 ML Syringe FLUSH SCH ×2 (08:06→19:37)
[2021-01-23] MEDS: Ondansetron 4 MG Tab.DIS PO PRN (09:58)
[2021-01-23] MEDS: Gabapentin 100 MG Cap PO SCH ×2 (17:36→19:36)
[2021-01-23] MEDS: Zolpidem 5 MG Tab PO SCH (19:35)
[2021-01-23] MEDS: Thiamine 100 MG Tab PO SCH (19:37)
[2021-01-24] MEDS: Pantoprazole 40 MG Tab.CR PO SCH ×2 (06:11→19:07)
[2021-01-24] MEDS: LORazepam 1 MG Tab PO PRN (06:13)
[2021-01-24 06:53] LABS: ANION GAP 11.8 mmol/L (5-15); CHLORIDE,CL 105 mmol/L (98-107); SODIUM,NA 138 mmol/L (136-145)
[2021-01-24] MEDS: Prochlorperazine 5 MG Tab PO SCH ×2 (07:51→19:56)
[2021-01-24] MEDS: ClonazePAM 0.5 MG Tab PO SCH (07:51)
[2021-01-24] MEDS: Magnesium Oxide 400 MG Tab PO SCH ×2 (07:52→19:57)
[2021-01-24] MEDS: Cyanocobalamin (Vitamin B12) 250 MCG Tab PO SCH (07:52)
[2021-01-24] MEDS: Spironolactone 25 MG Tab PO SCH (07:52)
[2021-01-24] MEDS: Multivitamins with Iron/Calcium/Folic Acid/Minerals Tab PO SCH (07:52)
[2021-01-24] MEDS: Naltrexone 50 MG Tab PO SCH ×2 (07:53→09:24)
[2021-01-24] MEDS: Folic Acid 1 MG Tab PO SCH (07:53)
[2021-01-24] MEDS: Thiamine 500 MG in Sodium Chloride 0.9% 100 ML IV SCH (09:21)
[2021-01-24] MEDS: Sodium Chloride 0.9% 10 ML Syringe FLUSH SCH ×2 (09:22→20:04)
[2021-01-24] MEDS: Gabapentin 100 MG Cap PO SCH ×3 (09:23→19:57)
[2021-01-24] MEDS: Hydrocortisone 1% Crm 30 GM Tube TOP SCH ×2 (09:23→20:01)
--- NOTE | 2021-01-24 13:03 | PN ---
Progress Note for KHADRA GIL Date: 01/24/2021 Room #: VM.218 SUBJECTIVE: This is a 55-year-old on swing bed, recovering after an acute stay for alcoholic hepatitis and new onset ascites. The patient had considerable alcohol intake and has now been through his withdrawals. He had been on baseline Ativan 1 mg t.i.d. His POA, ex- says he actually was taking Klonopin from the street at home, so he was getting more benzos. We had tried to switch him over to Klonopin last week as it is longer acting, but he just ended up using more of the p.r.n. Ativan. The patient gets very agitated. He wants to go outside and smoke. He is trying to smoke on a straw. We did give him some NA beer and that helped for a while. She is wondering if she could take him outside for a smoke. He is not having any trouble breathing. No fevers. He is actually eating much better 50% to 75% of meals. His lab work is looking better. He is having back pain which is not new. She actually asks about getting tramadol restarted. They have been using Icy Hot, but the patient did not say he wanted to take pain pills, in fact I asked him several times, but I talked about Neurontin and he said he had bottles of that at home. We talked about increasing that today for his alcohol cravings and he is already on the naltrexone and he is tolerating that without any upset stomach, but just 25 mg dose. He has been on scheduled Compazine which we tapered down to b.i.d. He has been getting IV thiamine. He is up moving around better. He did have some red rash in the right lower quadrant, looks like from the tape used over his paracentesis site. OBJECTIVE: Vital Signs: His temperature is 97.2, pulse 61, blood pressure 118/52, respiratory rate 22, and O2 of 94% on room air. General: He is in no acute distress. Heart: Regular rate and rhythm. S1, S2 without murmur. Lungs: Sounds are clear to auscultation bilaterally without crackles or wheezes. Abdomen: Nondistended. No ascites. Right lower quadrant incision, no drainage currently, but there is some red rash sore, likely where tape was removed. There is no drainage. No spreading redness or warmth. Mental Status: He is alert. He is answering questions. He did yell the F word at his POA once. Extremities: Have no edema. LABORATORY DATA: Lab work today did show white count up to 11.6, hemoglobin 13, platelets 92, which is much improved. Sodium 138, potassium 3.8, chloride 105, bicarb 25, BUN 7, creatinine 0.7, glucose 107. Calcium 8.2, corrected 9.9. Magnesium 1.7. Bilirubin 2.5 improved. AST 125, ALT 47, alkaline phosphatase 153. Albumin stable at 1.3. Hepatitis testing negative. ASSESSMENT AND PLAN: 1. Alcoholic hepatitis with cirrhosis. The patient has recovered from his acute episode. 2. Severe alcohol dependence. The patient has come through withdrawals. He has met with [facility]. We have him on Neurontin. We have him on naltrexone. We will try to arrange for a tele psych visit. 3. Ascites, improving. We will increase Aldactone to 75 mg daily to further balance his potassium and ensure adequate diuresis which has helped with his oral intake. He is eating better. 4. Pneumonia. He completed antibiotics. 5. Hypomagnesemia, on replacement. 6. History of squamous cell anal cancer s/p chemoradiation last year. He does have a visit with his Colorectal Surgery next month. 7. Thrombocytopenia, improving. 8. Severe malnutrition. 9. Weakness and deconditioning and likely underlying Wernicke's. The patient is getting IV thiamine. He is working with therapies. Hopefully, he will be able to return home with his POA who will be his caregiver. 10. Anxiety and agitation he has prn seroquel available PLAN: The patient will continue swing bed cares. We will repeat lab work on . We will continue with therapies. We will switch him back to the oral Ativan and continue the Ativan p.r.n. We will increase naltrexone. We will avoid opioids for now. Also avoiding nonsteroidal anti-inflammatory drugs for pain. He does have Tylenol lower doses available and has used some yesterday. MKA: 01/24/2021 12:24:41 MODL: 01/24/2021 12:58:03 /[id number] RUFINA
[2021-01-24] MEDS: LORazepam 1 MG Tab PO SCH ×2 (15:17→19:57)
[2021-01-24] MEDS: Zolpidem 5 MG Tab PO SCH (19:56)
[2021-01-24] MEDS: Thiamine 100 MG Tab PO SCH (19:57)
[2021-01-25] MEDS: Pantoprazole 40 MG Tab.CR PO SCH ×2 (06:06→16:50)
[2021-01-25] MEDS: Spironolactone 25 MG Tab PO SCH (07:48)
[2021-01-25] MEDS: Hydrocortisone 1% Crm 30 GM Tube TOP SCH ×2 (07:48→20:02)
[2021-01-25] MEDS: Prochlorperazine 5 MG Tab PO SCH ×2 (07:49→20:00)
[2021-01-25] MEDS: Folic Acid 1 MG Tab PO SCH (07:50)
[2021-01-25] MEDS: Naltrexone 50 MG Tab PO SCH (07:50)
[2021-01-25] MEDS: Magnesium Oxide 400 MG Tab PO SCH ×2 (07:50→20:01)
[2021-01-25] MEDS: Multivitamins with Iron/Calcium/Folic Acid/Minerals Tab PO SCH (07:50)
[2021-01-25] MEDS: Gabapentin 100 MG Cap PO SCH ×3 (07:51→20:00)
[2021-01-25] MEDS: Cyanocobalamin (Vitamin B12) 250 MCG Tab PO SCH (07:51)
[2021-01-25] MEDS: Sodium Chloride 0.9% 10 ML Syringe FLUSH SCH ×2 (07:52→20:02)
[2021-01-25] MEDS: LORazepam 1 MG Tab PO SCH ×3 (07:52→20:01)
[2021-01-25] MEDS ORDERED: Spironolactone 25 MG Tab PO SCH (08:00)
[2021-01-25] MEDS: Thiamine 100 MG Tab PO SCH (20:00)
[2021-01-25] MEDS: Zolpidem 5 MG Tab PO SCH (20:00)
[2021-01-26] MEDS: Pantoprazole 40 MG Tab.CR PO SCH ×2 (07:02→16:25)
[2021-01-26] MEDS: LORazepam 1 MG Tab PO SCH ×3 (07:41→19:56)
[2021-01-26] MEDS: Prochlorperazine 5 MG Tab PO SCH ×2 (07:41→19:56)
[2021-01-26] MEDS: Multivitamins with Iron/Calcium/Folic Acid/Minerals Tab PO SCH (07:41)
[2021-01-26] MEDS: Naltrexone 50 MG Tab PO SCH (07:41)
[2021-01-26] MEDS: Magnesium Oxide 400 MG Tab PO SCH ×2 (07:41→19:57)
[2021-01-26] MEDS: Spironolactone 25 MG Tab PO SCH (07:41)
[2021-01-26] MEDS: Folic Acid 1 MG Tab PO SCH (07:42)
[2021-01-26] MEDS: Cyanocobalamin (Vitamin B12) 250 MCG Tab PO SCH (07:42)
[2021-01-26] MEDS: Gabapentin 100 MG Cap PO SCH ×3 (07:42→19:55)
[2021-01-26] MEDS: Hydrocortisone 1% Crm 30 GM Tube TOP SCH ×2 (07:42→19:59)
[2021-01-26] MEDS: Sodium Chloride 0.9% 10 ML Syringe FLUSH SCH ×2 (07:50→20:04)
[2021-01-26] MEDS: Ondansetron 4 MG Tab.DIS PO PRN (16:25)
[2021-01-26] MEDS: Lidocaine 4% 1 each Patch TOP SCH (16:31)
--- NOTE | 2021-01-26 16:58 | PN ---
Progress Note for ILDEFONSO GIL Date: 01/26/2021 Room #: VM.218 SUBJECTIVE: This is a 55-year-old on swing bed who I saw today due to Nursing contacting me late afternoon yesterday and wondering about further abdominal distention. When I asked Ildefonso today, he states he thinks it is little bit better today. He is denying pain in his abdomen, but he has back pain which is chronic. They did give him lactulose and he has had multiple stools and been incontinent of bowel and urine, which he had been using the urinal and doing better with that. He otherwise denies that he is having any cough or shortness of breath. He is not having any fever. We did change his Klonopin back to Ativan on Sunday and added the Neurontin morning dose and he has been in a very much improved mood and cooperative with nursing since. He is working with therapies. There is potential for him to be discharged later this week or most likely Sunday home with his ex- who is his power of associate attorney and caregiver at home. The patient is not on any pain pills. Right now for his back, he declined Tylenol this morning, but he would like to try a Lidoderm patch. OBJECTIVE: Vital Signs: His temperature is 97.2, his pulse is 116, his blood pressure 120/86, respiratory rate 18, and O2 of 95% on room air. General: He is in no acute distress. Heart: Regular rate and rhythm. S1, S2 without murmur. Lungs: His lung sounds are clear to auscultation bilaterally without crackles or wheezes. Abdomen: Distended mildly with ascites. It did appear slightly worsened when I examined him on Sunday but still not severe to the point of needing another paracentesis. It is nontender. He has no drainage from the right lower quadrant paracentesis site. There are some scabs from where he had tape, but that is also improving. Mental Status: He is alert. Extremities: Warm and dry. No edema. Rectal: Did perform today. There is just a small fingertip size area potentially around the 5 o'clock position. There was no gino blood noted externally. No bleeding. However, on digital exam, it was a little tender and there was red blood noted but no stool. LABORATORY DATA: Otherwise, lab work is due tomorrow. ASSESSMENT: 1. History of anal cancer. He is status post chemo and radiation in October and 11/2019. His cytology on ascites fluid was negative for cancer. 2. Alcoholic hepatitis, mild. The patient clinically improving. 3. New onset ascites, likely due to alcoholic hepatitis and cirrhosis. He is on Lasix and Aldactone. 4. Severe alcohol abuse. The patient has been through withdrawals now. He needs no longer CIWA monitoring. 5. Anxiety. This is likely longstanding as he was on Ativan 1 mg t.i.d. at home. He is back on this and he had been potentially getting Klonopin off the street. He has not used a 2 mg p.r.n. Ativan dose since 01/24. 6. Back pain, chronic. He is on gabapentin. This is also for alcohol abuse. We will try the Lidoderm patch. He has used tramadol in the past. We will try to avoid that since he is now on naltrexone to help with the alcohol. 7. Insomnia. He is on Ambien at bedtime. 8. Thrombocytopenia, severe, but improving. He is due for lab work tomorrow. He has no active bleeding. 9. Hypomagnesemia, on replacements. 10.Pneumonia, treated. 11.Severe malnutrition. The patient is tolerating diet much better, eating now 75% to 100% of meals. 12.Mild anemia. His hemoglobin has actually improved up to 13. PLAN: The patient will continue on swing bed cares until he is physically stable to return home with 24-hour supervision. We anticipate this will likely be early next week. MKA: 01/26/2021 15:59:52 MODL: 01/26/2021 16:54:13 /[id number]
[2021-01-26] MEDS: Zolpidem 5 MG Tab PO SCH (19:57)
[2021-01-26] MEDS: Thiamine 100 MG Tab PO SCH (19:57)
[2021-01-27] MEDS: QUEtiapine 25 MG Tab PO PRN (01:42)
[2021-01-27] MEDS: LORazepam 1 MG Tab PO PRN (01:42)
[2021-01-27] MEDS: Pantoprazole 40 MG Tab.CR PO SCH ×2 (06:18→17:02)
[2021-01-27] MEDS: Gabapentin 100 MG Cap PO SCH ×3 (07:35→19:34)
[2021-01-27] MEDS: Prochlorperazine 5 MG Tab PO SCH ×2 (07:35→19:36)
[2021-01-27] MEDS: LORazepam 1 MG Tab PO SCH ×3 (07:35→19:36)
[2021-01-27] MEDS: Cyanocobalamin (Vitamin B12) 250 MCG Tab PO SCH (07:35)
[2021-01-27] MEDS: Folic Acid 1 MG Tab PO SCH (07:36)
[2021-01-27] MEDS: Magnesium Oxide 400 MG Tab PO SCH ×2 (07:36→19:36)
[2021-01-27] MEDS: Spironolactone 25 MG Tab PO SCH (07:36)
[2021-01-27] MEDS: Naltrexone 50 MG Tab PO SCH (07:36)
[2021-01-27] MEDS: Multivitamins with Iron/Calcium/Folic Acid/Minerals Tab PO SCH (07:36)
[2021-01-27] MEDS: Hydrocortisone 1% Crm 30 GM Tube TOP SCH ×2 (07:36→19:38)
[2021-01-27] MEDS: Lidocaine 4% 1 each Patch TOP SCH (07:36)
[2021-01-27] MEDS: Sodium Chloride 0.9% 10 ML Syringe FLUSH SCH ×2 (07:39→19:40)
[2021-01-27 07:54] LABS: CHLORIDE,CL 105 mmol/L (98-107); SODIUM,NA 137 mmol/L (136-145)
[2021-01-27 07:56] LABS: ANION GAP 11.8 mmol/L (5-15)
[2021-01-27] MEDS: Thiamine 100 MG Tab PO SCH (19:33)
[2021-01-27] MEDS: Zolpidem 5 MG Tab PO SCH (19:33)
[2021-01-27] MEDS: Acetaminophen 325 MG Tab PO PRN (19:34)
[2021-01-27] MEDS: Melatonin 3 MG Tab PO SCH (19:35)
[2021-01-28] MEDS: Pantoprazole 40 MG Tab.CR PO SCH ×2 (06:33→18:30)
[2021-01-28] MEDS: Folic Acid 1 MG Tab PO SCH (10:04)
[2021-01-28] MEDS: Lidocaine 4% 1 each Patch TOP SCH (10:04)
[2021-01-28] MEDS: Multivitamins with Iron/Calcium/Folic Acid/Minerals Tab PO SCH (10:05)
[2021-01-28] MEDS: LORazepam 1 MG Tab PO SCH ×3 (10:05→20:42)
[2021-01-28] MEDS: Naltrexone 50 MG Tab PO SCH (10:05)
[2021-01-28] MEDS: Magnesium Oxide 400 MG Tab PO SCH ×2 (10:05→20:41)
[2021-01-28] MEDS: Spironolactone 25 MG Tab PO SCH (10:06)
[2021-01-28] MEDS: Prochlorperazine 5 MG Tab PO SCH ×2 (10:06→20:41)
[2021-01-28] MEDS: Cyanocobalamin (Vitamin B12) 250 MCG Tab PO SCH (10:06)
[2021-01-28] MEDS: Gabapentin 100 MG Cap PO SCH ×3 (10:06→20:41)
[2021-01-28] MEDS: Hydrocortisone 1% Crm 30 GM Tube TOP SCH ×2 (10:08→20:20)
[2021-01-28] MEDS: Sodium Chloride 0.9% 10 ML Syringe FLUSH SCH ×2 (10:14→20:42)
[2021-01-28] MEDS ORDERED: Polyethylene Glycol 3350 Powder 17 GM Packet PO PRN (10:15)
[2021-01-28] MEDS ORDERED: Lactulose Soln 10 GM/15 ML 15 ML UD Cup PO PRN (12:25)
--- NOTE | 2021-01-28 13:24 | PN ---
Progress Note for KHADRA GIL Date: 01/28/2021 Room #: VM.218 SUBJECTIVE: Patient is concerned for abdominal swelling. I was contacted as the on-call provider to see patient regarding his abdomen. They are concerned that it is more swollen, getting more distended. The patient does have a known history of cirrhosis with ascites. He had had his last paracentesis done on 01/12 where 3.8 L of fluid was removed. The patient yesterday had been feeling fine. His regular provider was here. Today, he was not certain if he was more short of breath. Also, he is refusing to take his lactulose. The patient had had initial hepatic encephalopathy when he first came, not certain what his previous dose of lactulose was. He was concerned about the amount of loose stools he was having. The patient also does have a history of anxiety. Weight was obtained today, which was 67 kg, which is actually down from 71 kg on admission to swing bed. His blood pressure is 89/68, pulse was 107, temperature is 36.8, respiratory rate 16, saturations are 93%. OBJECTIVE: Patient has acne on his face. Heart: Regular rate and rhythm. Lungs: Clear to auscultation. Abdomen: Slightly distended. Bowel sounds are present. It is nontender. Ascites present.dull wave present. There is no redness noted. IMPRESSION: 1. Alcoholic cirrhosis with ascites. 2. History of anal cancer. 3. Anxiety disorder. 4. Back pain. 5. Thrombocytopenia. PLAN: Reassured patient that his abdomen does not need to be tapped today and it can be observed. Patient was strongly encouraged to try taking his lactulose, but we will have him try a lower dose of it to see if that does not offer such severe diarrhea for him, and we will allow Dr. Kendall to decide about paracentesis if needed when she returns in 3 days. If over the weekend, he would worsen, he would need transfer to acute care facility that could do paracentesis. GM01/28/2021 12:20:03 MODL: 01/28/2021 12:59:02 /[id number] RUFINA
[2021-01-28] MEDS: Zolpidem 5 MG Tab PO SCH (20:41)
[2021-01-28] MEDS: Thiamine 100 MG Tab PO SCH (20:41)
[2021-01-28] MEDS: Melatonin 3 MG Tab PO SCH (20:42)
[2021-01-29] MEDS: Acetaminophen 325 MG Tab PO PRN (05:54)
[2021-01-29] MEDS: Pantoprazole 40 MG Tab.CR PO SCH ×2 (06:31→16:47)
[2021-01-29] MEDS: Spironolactone 25 MG Tab PO SCH (10:13)
[2021-01-29] MEDS: Cyanocobalamin (Vitamin B12) 250 MCG Tab PO SCH (10:14)
[2021-01-29] MEDS: Naltrexone 50 MG Tab PO SCH (10:14)
[2021-01-29] MEDS: Prochlorperazine 5 MG Tab PO SCH ×2 (10:14→22:18)
[2021-01-29] MEDS: Gabapentin 100 MG Cap PO SCH ×3 (10:15→22:16)
[2021-01-29] MEDS: LORazepam 1 MG Tab PO SCH ×3 (10:15→22:12)
[2021-01-29] MEDS: Magnesium Oxide 400 MG Tab PO SCH ×2 (10:15→22:04)
[2021-01-29] MEDS: Sodium Chloride 0.9% 10 ML Syringe FLUSH SCH ×2 (10:16→22:14)
[2021-01-29] MEDS: Multivitamins with Iron/Calcium/Folic Acid/Minerals Tab PO SCH (10:16)
[2021-01-29] MEDS: Folic Acid 1 MG Tab PO SCH (10:16)
[2021-01-29] MEDS: Lidocaine 4% 1 each Patch TOP SCH (10:30)
[2021-01-29] MEDS: Hydrocortisone 1% Crm 30 GM Tube TOP SCH ×2 (10:30→22:15)
[2021-01-29] MEDS: LORazepam 2 MG/ML SDV IVPUSH PRN (16:47)
[2021-01-29] MEDS: Melatonin 3 MG Tab PO SCH (22:04)
[2021-01-29] MEDS: Thiamine 100 MG Tab PO SCH (22:04)
[2021-01-29] MEDS: Zolpidem 5 MG Tab PO SCH (22:13)
[2021-01-30] MEDS: LORazepam 1 MG Tab PO PRN (03:53)
[2021-01-30] MEDS: Multivitamins with Iron/Calcium/Folic Acid/Minerals Tab PO SCH (09:48)
[2021-01-30] MEDS: Pantoprazole 40 MG Tab.CR PO SCH ×2 (09:48→18:44)
[2021-01-30] MEDS: Prochlorperazine 5 MG Tab PO SCH ×2 (09:48→19:48)
[2021-01-30] MEDS: LORazepam 1 MG Tab PO SCH ×3 (09:49→19:49)
[2021-01-30] MEDS: Spironolactone 25 MG Tab PO SCH (09:49)
[2021-01-30] MEDS: Folic Acid 1 MG Tab PO SCH (09:49)
[2021-01-30] MEDS: Cyanocobalamin (Vitamin B12) 250 MCG Tab PO SCH (09:49)
[2021-01-30] MEDS: Magnesium Oxide 400 MG Tab PO SCH ×2 (09:49→19:49)
[2021-01-30] MEDS: Hydrocortisone 1% Crm 30 GM Tube TOP SCH (09:50)
[2021-01-30] MEDS: Naltrexone 50 MG Tab PO SCH (09:50)
[2021-01-30] MEDS: Lidocaine 4% 1 each Patch TOP SCH (09:50)
[2021-01-30] MEDS: Sodium Chloride 0.9% 10 ML Syringe FLUSH SCH (09:50)
[2021-01-30] MEDS: Gabapentin 100 MG Cap PO SCH ×3 (09:50→19:48)
[2021-01-30] MEDS: LORazepam 2 MG/ML SDV IVPUSH PRN (11:54)
[2021-01-30] MEDS: Melatonin 3 MG Tab PO SCH (19:49)
[2021-01-30] MEDS: Thiamine 100 MG Tab PO SCH (19:49)
[2021-01-31] MEDS: Hydrocortisone 1% Crm 30 GM Tube TOP SCH ×2 (00:06→08:50)
[2021-01-31] MEDS: Zolpidem 5 MG Tab PO SCH (00:06)
[2021-01-31] MEDS: Sodium Chloride 0.9% 10 ML Syringe FLUSH SCH ×2 (00:07→08:51)
[2021-01-31] MEDS: Prochlorperazine 5 MG Tab PO SCH (07:31)
[2021-01-31] MEDS: Spironolactone 25 MG Tab PO SCH (07:31)
[2021-01-31] MEDS: Magnesium Oxide 400 MG Tab PO SCH (07:32)
[2021-01-31] MEDS: Multivitamins with Iron/Calcium/Folic Acid/Minerals Tab PO SCH (07:32)
[2021-01-31] MEDS: Gabapentin 100 MG Cap PO SCH ×2 (07:32→13:42)
[2021-01-31] MEDS: Pantoprazole 40 MG Tab.CR PO SCH (07:32)
[2021-01-31] MEDS: Folic Acid 1 MG Tab PO SCH (07:32)
[2021-01-31] MEDS: LORazepam 1 MG Tab PO SCH ×2 (07:33→13:42)
[2021-01-31] MEDS: Cyanocobalamin (Vitamin B12) 250 MCG Tab PO SCH (07:33)
[2021-01-31] MEDS: Naltrexone 50 MG Tab PO SCH (07:33)
[2021-01-31 07:37] LABS: CHLORIDE,CL 105 mmol/L (98-107); SODIUM,NA 138 mmol/L (136-145)
[2021-01-31] MEDS: Lidocaine 4% 1 each Patch TOP SCH (08:50)
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
[2021-02-01] MEDS ORDERED: Spironolactone 25 MG Tab PO SCH (08:00)
== END 2021-01-31 11:05 | disposition home health service (06) | DRG 432 ==
LOC: VM.MS 11:28
PROVIDERS: ADMIT Internal Medicine; ATTEND Internal Medicine
DX: K70.11 Alcoholic hepatitis with ascites (principal); E43 Unspecified severe protein-calorie malnutrition; F10.288 Alcohol dependence with other alcohol-induced disorder; E51.2 Wernicke's encephalopathy; C21.0 Malignant neoplasm of anus, unspecified; F10.231 Alcohol dependence with withdrawal delirium; K70.31 Alcoholic cirrhosis of liver with ascites; E83.42 Hypomagnesemia; M54.9 Dorsalgia, unspecified; G89.29 Other chronic pain; D69.59 Other secondary thrombocytopenia; G47.00 Insomnia, unspecified; E87.6 Hypokalemia; D64.9 Anemia, unspecified; Z87.01 Personal history of pneumonia (recurrent); Z68.24 Body mass index [BMI] 24.0-24.9, adult
CPT/HCPCS: 36415; 70450; 80053; 80074; 82140; 83735; 85025; 90686; 94760; 96125-GO; 97110-GP; 97116-GP; 97129-GO; 97530-GP; A9270-GY; G0008; J2060; J3411; Q0164

== ENCOUNTER 2021-02-11 06:16 | Emergency (ER) | payer MEDICARE ==
[2021-02-11 07:02] LABS: PTT,PARTIAL THROMBOPLSTIN TIME 31.9 SEC (25.6-32.8)
[2021-02-11 07:03] LABS: CHLORIDE,CL 99 mmol/L (98-107); SODIUM,NA 137 mmol/L (136-145)
[2021-02-11 07:05] LABS: ANION GAP 10.7 mmol/L (5-15)
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
[2021-02-11] MEDS ORDERED: Potassium Chloride 20 MEQ Tab.ER PO ONE (08:29)
[2021-02-11] MEDS ORDERED: Magnesium Oxide 400 MG Tab PO ONE (08:30)
== END 2021-02-11 09:18 | disposition short-term general hospital (02) ==
LOC: VM.ED 06:16
DX: K70.11 Alcoholic hepatitis with ascites (principal); E87.6 Hypokalemia; K21.9 Gastro-esophageal reflux disease without esophagitis; Z72.0 Tobacco use; Z88.0 Allergy status to penicillin; Z91.048 Other nonmedicinal substance allergy status
CPT/HCPCS: 36415; 80053; 85025; 85610; 85730; 99285; A9270

== ENCOUNTER 2024-09-03 15:52 | Emergency (ER) | payer MEDICARE, OTHER ==
[2024-09-03] MEDS ORDERED: Sodium Chloride 0.9% 10 ML Syringe FLUSH PRN (16:04)
[2024-09-03] MEDS: Lactated Ringers 1,000 ML IV ONE (16:15)
[2024-09-03 16:25] LABS: INR 1.3 (0.9-1.1); PROTHROMBIN TIME 13.4 SEC (9.6-12.0); PTT,PARTIAL THROMBOPLSTIN TIME 28.8 SEC (23.5-33.2)
[2024-09-03 16:31] LABS: BASOPHILS PERCENT AUTO 0.3 % (0.2-1.2); EOSINOPHILS PERCENT AUTO 0.5 % (0.0-4.0); HEMATOCRIT 26.8 % (40.0-52.0); HEMOGLOBIN 9.2 g/dL (14.0-18.0); IMMATURE GRAN ABSOLUTE AUTO 0.02 x10^3/uL (0.00-0.07); LYMPHOCYTES ABSOLUTE AUTO 0.6 x10^3/uL (1.0-4.8); LYMPHOCYTES PERCENT AUTO 15.7 % (25.0-50.0); MEAN CORPUSCULAR HEMOGLOBIN 36.1 pg (26.0-32.0); MEAN CORPUSCULAR HGB CONC 34.3 g/dL (32.0-36.0); MEAN CORPUSCULAR VOLUME 105.1 fL (78.0-93.0); MONOCYTES ABSOLUTE AUTO 0.9 x10^3/uL (0.0-0.8); MONOCYTES PERCENT AUTO 22.3 % (2.0-11.0); NEUTROPHILS ABSOLUTE AUTO 2.4 x10^3/uL (1.8-7.7); NEUTROPHILS PERCENT AUTO 60.7 % (50.0-80.0); RED BLOOD CELL COUNT 2.55 x10^6/uL (4.5-6.0); WHITE BLOOD CELL COUNT,WBC 3.9 x10^3/uL (4.0-10.0)
[2024-09-03 16:34] LABS: A/G RATIO 0.44; ALANINE AMINOTRANSFERASE,ALT 47 U/L (16-63); ALBUMIN 2.3 g/dL (3.4-5.0); ALKALINE PHOSPHATASE 150 U/L (46-116); ASPARTATE AMNIOTRANSFERASE,AST 130 U/L (15-37); BILIRUBIN TOTAL 5.5 mg/dL (0.2-1.0); BLOOD UREA NITROGEN,BUN 11 mg/dL (7-18); CARBON DIOXIDE,CO2 15 mmol/L (21-32); CHLORIDE,CL 98 mmol/L (98-107); CREATININE 0.8 mg/dL (0.70-1.30); ETHANOL BLOOD MEDICAL 96 mg/dL (0-3); GLUCOSE RANDOM 121 mg/dL (70-99); POTASSIUM,K 3.4 mmol/L (3.5-5.1); PROTEIN TOTAL,TP 7.5 g/dL (6.4-8.2); SODIUM,NA 132 mmol/L (136-145)
[2024-09-03 16:36] LABS: ANION GAP 22.4 mmol/L (5-15); ESTIMATED GFR 101 mL/min (>=60)
[2024-09-03 16:37] LABS: PLATELET COUNT,PLT 17 x10^3/uL (130-400)
[2024-09-03 16:38] LABS: CREATINE KINASE,CK 461 U/L (39-308)
[2024-09-03] MEDS: Iopamidol 612 MG/ML 100 ML Bottle IVPUSH ONE (17:10)
[2024-09-03 17:23] LABS: BILIRUBIN,URINE SMALL (NEGATIVE); COLOR,URINE YELLOW (YELLOW); GLUCOSE,URINE NEGATIVE (NEGATIVE); KETONES,URINE NEGATIVE (NEGATIVE); LEUKOCYTE ESTERASE,URINE NEGATIVE (NEGATIVE); NITRITE,URINE NEGATIVE (NEGATIVE); OCCULT BLOOD,URINE TRACE-LYSED (NEGATIVE); PROTEIN,URINE TRACE mg/dL (NEGATIVE); UROBILINOGEN,URINE >=8.0 EU/dL (0.2)
[2024-09-03] MEDS: Sodium Chloride 0.9% 1,000 ML IV ONE (17:26)
[2024-09-03 17:28] LABS: AMPHETAMINES SCREEN, URINE NEGATIVE (NEGATIVE); APPEARANCE,URINE SLIGHTLY CLOUDY (CLEAR); BARBITURATE SCREEN,URINE NEGATIVE (NEGATIVE); COCAINE METABOLITES,URINE NEGATIVE (NEGATIVE); METHADONE SCREEN, URINE NEGATIVE (NEGATIVE); METHAMPHETAMINE SCREEN, URINE NEGATIVE (NEGATIVE); OXYCODONE SCREEN,URINE NEGATIVE (NEGATIVE); PCP SCREEN,URINE NEGATIVE (NEGATIVE)
[2024-09-03 17:29] LABS: BACTERIA,URINE OCCASIONAL /HPF (NOT SEEN); BENZODIAZEPINES SCREEN,URINE POSITIVE (NEGATIVE); BUPRENORPHINE SCREEN,URINE NEGATIVE (NEGATIVE); MUCUS,URINE FEW /LPF (NOT SEEN); RBC,URINE 0-5 /HPF (NOT SEEN); SQUAMOUS EPITHELIAL CELLS,UR NOT SEEN /HPF (NOT SEEN); THC SCREEN,URINE 50 NG/ML POSITIVE (NEGATIVE); WBC,URINE 0-5 /HPF (NOT SEEN)
[2024-09-03] MEDS: LORazepam 2 MG/ML SDV IVPUSH ONE (17:46)
[2024-09-03] MEDS: cefTRIAXone 2 GM Vial IVPUSH ONE (17:47)
[2024-09-03] MEDS: VANCOmycin 1.25 GM/250 ML 1.25 GM in Premix Bag 1 BAG IV ONE (17:55)
== END 2024-09-03 19:23 | disposition short-term general hospital (02) ==
LOC: VM.ED 15:52
DX: S62.336A Displaced fracture of neck of fifth metacarpal bone, right hand, initial encounter for closed fracture (principal); T79.6XXA Traumatic ischemia of muscle, initial encounter; D61.818 Other pancytopenia; F10.10 Alcohol abuse, uncomplicated; E87.20 Acidosis, unspecified; R22.0 Localized swelling, mass and lump, head; K21.9 Gastro-esophageal reflux disease without esophagitis; Z88.0 Allergy status to penicillin; Z91.048 Other nonmedicinal substance allergy status; Z79.899 Other long term (current) drug therapy; Y90.4 Blood alcohol level of 80-99 mg/100 ml; W19.XXXA Unspecified fall, initial encounter; Y92.019 Unspecified place in single-family (private) house as the place of occurrence of the external cause
CPT/HCPCS: 29125; 36415; 51702; 70450; 71260; 72125; 73030-RT; 73130-RT; 74177; 80053; 80305-QW; 80307; 81001; 82550; 83605; 84484; 85025; 85610; 85730; 87040; 93010; 96361; 96365; 96375; 99284; 99285-25; J0696; J2060; J3372; J7030; J7120; Q9967